=== PATIENT | male | born 1945 | race Caucasian/White ===

== ENCOUNTER 2017-03-25 10:35 | Emergency (ER) | payer MEDICARE ==
[2017-03-25] MEDS ORDERED: Morphine INJ* 4 MG/ML 1 ML SYRINGE IV ONE (11:07)
[2017-03-25] MEDS ORDERED: Ondansetron INJ* 2 MG/ML VIAL IV ONE (11:07)
[2017-03-25] MEDS ORDERED: LORazepam INJ* 2 MG/ML 1 ML VIAL IV PUSH ONE (11:09)
[2017-03-25 11:41] LABS: Hematocrit 41 % (42-52); Hemoglobin 14.1 g/dl (14.0-18.0); Mean Corpuscular HGB Conc 34 g/dl (31-36); Mean Corpuscular Hemoglobin 31 pg (27-31); Mean Corpuscular Volume 91 fL (80-94); Mean Platelet Volume 7 um3 (7.4-10.4); Red Blood Count 4.52 10^6/ul (4.0-5.4); Red Cell Distribution Width 14 % (10.5-15); White Blood Count 7.7 10^3/ul (3.5-10.8)
[2017-03-25] MEDS: NS 0.9% 1000 ML* 2,000 ML IV ONE ×2 (11:46→11:47)
[2017-03-25 11:57] LABS: ALT 13 U/L (7-52); AST 17 U/L (13-39); Alkaline Phosphatase 67 U/L (34-104); Amylase 50 U/L (29-103); Anion Gap 7 mmol/L (2-11); BUN/Creatinine Ratio 9.9 (8-20); Blood Urea Nitrogen 9 mg/dL (6-24); C Reactive Protein < 1.00 mg/L (< 5.00); CO2 Carbon Dioxide 24 mmol/L (22-32); Calcium 9.6 mg/dL (8.6-10.3); Chloride 102 mmol/L (101-111); EGFR Non-African American 81.7 (>60); Globulin 3.3 g/dL (2-4); Glucose 133 mg/dL (70-100); Lipase 32 U/L (11.0-82.0); Potassium 3.6 mmol/L (3.5-5.0); Sodium 133 mmol/L (133-145); Total Protein 7.3 g/dL (6.4-8.9)
[2017-03-25 11:58] LABS: Troponin I 0.01 ng/mL (<0.04)
[2017-03-25] MEDS ORDERED: Iodixanol* (CONTRAST) 320 MG/ML 100 ML SDV IV ONE (12:18)
[2017-03-25 12:36] VITALS: BP 166/70
[2017-03-25 13:33] LABS: Urine Bilirubin Negative (Negative); Urine Glucose Negative (Negative); Urine Nitrite Negative (Negative)
--- NOTE | 2017-03-25 13:36 | RAD ---
CLINICAL HISTORY: Pain, small bowel obstruction, colitis, cholelithiasis COMPARISON: CTA dated July 05, 2010 TECHNIQUE: Multiple contiguous axial CT scans were obtained of the abdomen and pelvis after the administration of intravenous contrast. Coronal and sagittal multiplanar reformations are submitted for review. Oral contrast was administered. Delayed images were obtained through the abdomen and pelvis. FINDINGS: LUNG BASES: The lung bases are clear. LIVER: The liver is normal in shape, size, contour, and attenuation. BILE DUCTS: There is no intrahepatic or extrahepatic biliary dilatation. GALLBLADDER: The gallbladder is normal, without pericholecystic inflammatory change. PANCREAS: The pancreas is normal, without mass or ductal dilatation. SPLEEN: Normal in size and appearance. UPPER GI TRACT: Evaluation of the gastrointestinal tract is limited by incomplete gastric distention. The upper GI tract is unremarkable. SMALL BOWEL AND MESENTERY: The small bowel is normal in contour, course, and caliber. There is no obstruction or dilatation. COLON: The colon is normal in contour, course, caliber. There is no pericolonic inflammatory change. There is a tubular, vermiform, hollow viscus that is blind ending, and originates from the cecum, consistent with a normal appendix. There is no periappendiceal inflammatory change. This is best seen on axial image 47 and coronal images 43 through 46 ADRENALS: Normal bilaterally. KIDNEYS: The kidneys are normal in shape, size, contour, and axis. There is no hydronephrosis or nephrolithiasis. BLADDER: The bladder is smooth in contour. PELVIC ORGANS: The prostate is diffusely enlarged. The seminal vesicles are symmetric. AORTA: There is extensive atherosclerosis of the abdominal aorta and its branches IVC: Unremarkable LYMPH NODES: There is no lymphadenopathy by size criteria. ABDOMINAL WALL: There is no evidence for abdominal wall hernia. BONES AND SOFT TISSUES: There are mild diffuse degenerative changes. OTHER: None IMPRESSION: ATHEROSCLEROSIS. NO ACUTE CT PATHOLOGY OF THE VISUALIZED ABDOMEN OR PELVIS
--- NOTE | 2017-03-25 13:45 | RAD ---
INDICATION: Headaches COMPARISON: None TECHNIQUE: Noncontrast axial source images were acquired from the skull base to the vertex. FINDINGS: Ventricles/sulci: There is mild age-related cortical atrophy with compensatory dilatation of the CSF spaces. Brain parenchyma: There is minor periventricular and subcortical white matter change compatible with chronic ischemia. Intracranial hemorrhage:None. Extra-axial spaces: There are no abnormal extra axial fluid collections or evidence of extra-axial mass. Calvarium: There is no calvarial fracture or other calvarial abnormality. Scalp: There is no evidence of scalp or extracalvarial soft tissue abnormality. Paranasal sinuses/mastoid: There is complete opacification of left maxillary antrum. There is mild, bilateral, ethmoid sinus. Compressive thickening. The remaining paranasal sinuses are clear. Other: None. IMPRESSION: NO ACUTE INTRACRANIAL FINDINGS. SINUSITIS.
--- NOTE | 2017-03-25 16:01 | ED ---
Julian Zaragoza SooYoung, scribed for Jacob Awad MD on 03/25/17 at 1048 . Abdominal Pain/Male - HPI Summary HPI Summary: A 71 y/o M presents to ED with c/o diffuse abd pain onset [employer]. Describes the pain as currently feeling like a "lump." Associated sx: abd swelling, diffuse CRUZ, confusion, nausea, diarrhea resolved, constipation. Last BM was yesterday. Denies CP, SOB, fever, chills, vomiting, photophobia. Spoke to PCP who recommended that he come to ED for evaluation. He hasn't taken his daily meds today. PSHx: CABG, 7 stents. PMHx: GI bleed around 2010. He states known hernia. Denies hx CHF, diverticulitis. - History of Current Complaint Chief Complaint: EDAbdPain Stated Complaint: NAUSEA/SENT BY DR Garcia Obtained From: Patient, Medical Records Onset/Duration: Gradual Onset, Still Present Severity Initially: Moderate Severity Currently: Moderate Pain Intensity: 5 Pain Scale Used: 0-10 Numeric Location: Diffuse Associated Signs And Symptoms: Positive: Constipation, Nausea, Diarrhea, Other - pos: constipation, confusion, CRUZ. Negative: Fever, Chest Pain, Vomiting - Allergies/Home Medications Allergies/Adverse Reactions: Allergies Allergy/AdvReac Type Severity Reaction Status Date / Time Buspirone [From Buspar] Allergy Unknown Verified 02/21/13 08:09 Reaction Details Clonazepam [From Klonopin] Allergy Unknown Verified 02/21/13 08:09 Reaction Details PMH/Surg Hx/FS Hx/Imm Hx Previously Healthy: No Endocrine/Hematology History: Reports: Hx Anticoagulant Therapy - plavix, Hx Diabetes - type 2 Cardiovascular History: Denies: Hx Congestive Heart Failure Respiratory History: Reports: Hx Chronic Obstructive Pulmonary Disease (COPD) Denies: Hx Asthma GI History: Denies: Hx Diverticulosis Neurological History: Denies: Hx Dementia - Surgical History Surgery Procedure, Year, and Place: triple bypass, 7 cardiac stents Infectious Disease History: Denies: Traveled Outside the [place] in Last 30 Days - Family History Known Family History: Positive: Cardiac Disease - mother, father, uncles - Social History Occupation: Disabled Lives: Alone Hx Substance Use: No Substance Use Type: Reports: None Hx Tobacco Use: Yes Review of Systems Negative: Fever, Chills Negative: Photophobia Negative: Chest Pain Negative: Shortness Of Breath Positive: Abdominal Pain - with abd swelling, Diarrhea, Nausea, Other - pos: constipation. Negative: Vomiting Neurological: Other - pos: confusion Positive: Headache All Other Systems Reviewed And Are Negative: Yes Physical Exam - Summary Physical Exam Summary: The patient is well-nourished, in no acute distress and in no acute pain. The skin is warm, diaphoretic.Pt is mildly ill appearing. HEENT: The head is normocephalic and atraumatic. The pupils are equal and reactive. The conjunctivae are clear and without drainage. Nares are patent and without drainage. Mouth reveals moist mucous membranes and the throat is without erythema and exudate. The external ears are intact. Neck is supple with full range of motion and non-tender. No nuchal rigidity. There are no carotid bruits. There is no neck vein distension. Respiratory: Chest is non-tender. Lungs are clear to auscultation and breath sounds are symmetrical and equal. Cardiovascular: Heart is regular rate and rhythm. There is no murmur or rub auscultated. There is no peripheral edema and pulses are symmetrical and equal. Abdomen: Distended abd. RUQ, LUQ, LLQ tenderness. Diminished bowel sounds. No palpable hernia or masses. There is no organomegaly palpated. Musculoskeletal: There is no back pain noted. Extremities are non-tender with full range of motion. Cap refill is 3 sceonds. There is no peripheral edema or calf tenderness elicited. Neurological: Patient is alert and oriented to person, place and time. The patient has symmetrical motor strength in all four extremities. Cranial nerves are grossly intact. Deep tendon reflexes are symmetrical and equal in all four extremities. Psychiatric: The patient has an appropriate affect. Mildly anxious. Triage Information Reviewed: Yes Vital Signs On Initial Exam: Initial Vitals Temp Pulse Resp BP Pulse Ox 96 F 67 20 137/75 99 03/25/17 10:36 03/25/17 10:36 03/25/17 10:36 03/25/17 10:36 03/25/17 10:36 Vital Signs Reviewed: Yes Diagnostics - Vital Signs Vital Signs Temp Pulse Resp BP Pulse Ox 03/25/17 10:36 96 F 67 20 137/75 99 - Laboratory Lab Results: Lab Results 03/25/17 03/25/17 03/25/17 Range/Units 11:30 11:30 11:30 WBC 7.7 (3.5-10.8) 10^3/ul RBC 4.52 (4.0-5.4) 10^6/ul Hgb 14.1 (14.0-18.0) g/dl Hct 41 L (42-52) % MCV 91 (80-94) fL MCH 31 (27-31) pg MCHC 34 (31-36) g/dl RDW 14 (10.5-15) % Plt Count 179 (150-450) 10^3/ul MPV 7 L (7.4-10.4) um3 Neut % (Auto) 55.8 (38-83) % Lymph % (Auto) 34.0 (25-47) % [place] % (Auto) 6.7 (1-9) % Eos % (Auto) 3.0 (0-6) % Baso % (Auto) 0.5 (0-2) % Absolute Neuts (auto) 4.3 (1.5-7.7) 10^3/ul Absolute Lymphs (auto) 2.6 (1.0-4.8) 10^3/ul Absolute Monos (auto) 0.5 (0-0.8) 10^3/ul Absolute Eos (auto) 0.2 (0-0.6) 10^3/ul Absolute Basos (auto) 0 (0-0.2) 10^3/ul Absolute Nucleated RBC 0 10^3/ul Nucleated RBC % 0 Sodium 133 (133-145) mmol/L Potassium 3.6 (3.5-5.0) mmol/L Chloride 102 (101-111) mmol/L Carbon Dioxide 24 (22-32) mmol/L Anion Gap 7 (2-11) mmol/L BUN 9 (6-24) mg/dL Creatinine 0.91 (0.67-1.17) mg/dL Est GFR ( Amer) 105.0 (>60) Est GFR (Non-Af Amer) 81.7 (>60) BUN/Creatinine Ratio 9.9 (8-20) Glucose 133 H (70-100) mg/dL Lactic Acid 1.4 (0.5-2.0) mmol/L Calcium 9.6 (8.6-10.3) mg/dL Total Bilirubin 0.90 (0.2-1.0) mg/dL AST 17 (13-39) U/L ALT 13 (7-52) U/L Alkaline Phosphatase 67 (34-104) U/L Troponin I 0.01 (<0.04) ng/mL C-Reactive Protein < 1.00 (< 5.00) mg/L Total Protein 7.3 (6.4-8.9) g/dL Albumin 4.0 (3.2-5.2) g/dL Globulin 3.3 (2-4) g/dL Albumin/Globulin Ratio 1.2 (1-3) Amylase 50 (29-103) U/L Lipase 32 (11.0-82.0) U/L Urine Color Urine Appearance Urine pH (5-9) Ur Specific [place] (1.010-1.030) Urine Protein (Negative) Urine Ketones (Negative) Urine Blood (Negative) Urine Nitrate (Negative) Urine Bilirubin (Negative) Urine Urobilinogen (Negative) Ur Leukocyte Esterase (Negative) Urine Glucose (Negative) 03/25/17 Range/Units 13:08 WBC (3.5-10.8) 10^3/ul RBC (4.0-5.4) 10^6/ul Hgb (14.0-18.0) g/dl Hct (42-52) % MCV (80-94) fL MCH (27-31) pg MCHC (31-36) g/dl RDW (10.5-15) % Plt Count (150-450) 10^3/ul MPV (7.4-10.4) um3 Neut % (Auto) (38-83) % Lymph % (Auto) (25-47) % [place] % (Auto) (1-9) % Eos % (Auto) (0-6) % Baso % (Auto) (0-2) % Absolute Neuts (auto) (1.5-7.7) 10^3/ul Absolute Lymphs (auto) (1.0-4.8) 10^3/ul Absolute Monos (auto) (0-0.8) 10^3/ul Absolute Eos (auto) (0-0.6) 10^3/ul Absolute Basos (auto) (0-0.2) 10^3/ul Absolute Nucleated RBC 10^3/ul Nucleated RBC % Sodium (133-145) mmol/L Potassium (3.5-5.0) mmol/L Chloride (101-111) mmol/L Carbon Dioxide (22-32) mmol/L Anion Gap (2-11) mmol/L BUN (6-24) mg/dL Creatinine (0.67-1.17) mg/dL Est GFR ( Amer) (>60) Est GFR (Non-Af Amer) (>60) BUN/Creatinine Ratio (8-20) Glucose (70-100) mg/dL Lactic Acid (0.5-2.0) mmol/L Calcium (8.6-10.3) mg/dL Total Bilirubin (0.2-1.0) mg/dL AST (13-39) U/L ALT (7-52) U/L Alkaline Phosphatase (34-104) U/L Troponin I (<0.04) ng/mL C-Reactive Protein (< 5.00) mg/L Total Protein (6.4-8.9) g/dL Albumin (3.2-5.2) g/dL Globulin (2-4) g/dL Albumin/Globulin Ratio (1-3) Amylase (29-103) U/L Lipase (11.0-82.0) U/L Urine Color Straw Urine Appearance Clear Urine pH 5.0 (5-9) Ur Specific [place] 1.004 L (1.010-1.030) Urine Protein Negative (Negative) Urine Ketones Negative (Negative) Urine Blood Negative (Negative) Urine Nitrate Negative (Negative) Urine Bilirubin Negative (Negative) Urine Urobilinogen Negative (Negative) Ur Leukocyte Esterase Negative (Negative) Urine Glucose Negative (Negative) Result Diagrams: 03/25/17 11:30 03/25/17 11:30 Lab Statement: Any lab studies that have been ordered have been reviewed, and results considered in the medical decision making process. - CT ABD/PEL CT CT Interpretation: No Acute Changes - IMPRESSION: ATHEROSCLEROSIS. NO ACUTE CT PATHOLOGY OF THE VISUALIZED ABDOMEN OR PELVIS CT Interpretation Completed By: Radiologist BRAIN CT CT Interpretation: No Acute Changes - IMPRESSION: No acute intracranial findings. Sinusitis. CT Interpretation Completed By: Radiologist - EKG 1114 EKG Rhythm: Sinus Bradycardia ST Segment: Normal - no STEMI EKG Interpretation: with poor R-wave progression Re-Evaluation - Re-Evaluation 1 Re-Evaluation Time: 14:17 Change: Unchanged Comment: Discussing results with pt. Pt states still having epigastric pain, but is OK with D/C with some medication. 2 Re-Evaluation Time: 14:25 Change: Unchanged Comment: Discussed plan to dispo, advised pt to increase his Famotidine to two times per day. Abdominal Pain Fem Course/Dx - Course Course Of Treatment: Pt is a 71 y/o M presenting with diffuse abd pain. Associated sx: abd swelling, diffuse CRUZ, confusion, nausea, diarrhea for three days since resolved, constipation. Last BM was yesterday. Denies CP, SOB, fever , chills, vomiting, photophobia. Spoke to PCP who recommended that he come to ED for evaluation. He hasn't taken his daily meds today. PSHx: CABG, 7 stents. PMHx: GI bleed around 2010. Known hernia. Denies hx CHF, diverticulitis. Pt given fluids, ativan, morphine, Zofran in ED. Blood work is without significant abnormalities. UA results are WNL. ABD/PEL CT shows no acute findings. Brain CT shows no acute findings. Will D/C home with Tramadol, Augmentin, and advised pt to increase his Famotidine to two times per day. Pt voiced understanding. - Diagnoses Differential Diagnosis/HQI/PQRI: Appendicitis, Bowel Obstruction, Gall Bladder Disease, Ischemic Bowel, Pancreatitis, Peptic Ulcer Disease, Other - sinus infection, gastritis Provider Diagnoses: Gastritis, Sinusitis Discharge - Discharge Plan Condition: Stable Disposition: HOME Prescriptions: Amoxicillin/Clavulanate TAB* [Augmentin TAB 875*] 875 mg PO BID #20 tab traMADol TAB* [Ultram*] 50 mg PO Q6HR PRN #20 tab MDD 4 PRN Reason: pain Patient Education Materials: Amoxicillin/Clavulanate Potassium (By mouth), Tramadol (By mouth), Gastritis (ED), Sinusitis (ED) Referrals: Jw Dietz MD [Primary Care Provider] - 2 Days Additional Instructions: As we discussed, increase your Famotidine (Pepcid) to two times a day. Follow up with your primary care provider in the next 2 days. Please return to the ED if you experience new or worsening symptoms. The documentation as recorded by the scribeJulian SooYoung accurately reflects the service I personally performed and the decisions made by me, Jacob Awad MD.
== END 2017-03-25 14:55 | disposition home or self-care (01) ==
LOC: ED 10:35
DX: K29.70 Gastritis, unspecified, without bleeding (principal); J32.9 Chronic sinusitis, unspecified; K59.00 Constipation, unspecified; R11.0 Nausea; R19.7 Diarrhea, unspecified; R41.0 Disorientation, unspecified; R51 Headache
CPT/HCPCS: 36415; 70450; 74177; 80053; 81003; 82150; 83605; 83690; 84484; 85025; 86140; 87040; 93005; 96374; 96375; 99283; J2060; J2270; J2405; Q9967

== ENCOUNTER 2017-08-15 09:50 | Emergency (ER) | payer MEDICARE ==
[2017-08-15 10:44] LABS: ABS Basophils 0 10^3/ul (0-0.2); ABS Eosinophils 0.2 10^3/ul (0-0.6); ABS Lymphocytes 2.1 10^3/ul (1.0-4.8); ABS Monocytes 0.8 10^3/ul (0-0.8); ABS Neutrophils 6.7 10^3/ul (1.5-7.7); ABS Nucleated RBC 0 10^3/ul; Eosinophil % 2.3 % (0-6); Hematocrit 39 % (42-52); Hemoglobin 13.8 g/dl (14.0-18.0); Lymphocyte % 21.6 % (25-47); Mean Corpuscular HGB Conc 35 g/dl (31-36); Mean Corpuscular Hemoglobin 32 pg (27-31); Mean Corpuscular Volume 91 fL (80-94); Mean Platelet Volume 6 um3 (7.4-10.4); Nucleated Red Blood Cells % 0.1; Platelet Count 226 10^3/ul (150-450); Red Cell Distribution Width 13 % (10.5-15); White Blood Count 9.8 10^3/ul (3.5-10.8)
--- NOTE | 2017-08-15 11:05 | RAD ---
INDICATION: Cough. COMPARISON: Comparison is made with a prior chest x-ray study from June 20, 2010. TECHNIQUE: Dual-energy PA and lateral views of the chest were obtained. FINDINGS: The patient is status post sternotomy and coronary artery bypass surgery. The heart is upper limits of normal in size and unchanged. The lungs are clear. There is flattening of the diaphragms suggestive of chronic obstructive pulmonary disease. No pleural effusion is seen. IMPRESSION: FINDINGS SUGGESTIVE OF COPD, NO EVIDENCE FOR ACUTE FINDING.
[2017-08-15 11:07] LABS: EGFR Non-African American 94.8 (>60)
--- NOTE | 2017-08-15 12:46 | ED ---
Ancelmo Zaragoza Natalie, scribed for Harjinder Jj MD on 08/15/17 at 1038 . Respiratory - HPI Summary HPI Summary: The pt is a 71 y/o M presenting to the ED c/o productive coughing for two weeks , worsening in the last five days. When coughing, he has LLQ abd pain that radiates to right back. The pain is rated 5/10. It has been difficult for him to cough up sputum, but when he is able to, the sputum was white at first, but is now greenish-yellow. Pt denies fever. He has used an inhaler in the past to relief, but not currently. He has hx HTN and Type 2 diabetes. SHx heavy smoker in past, now its occasional use. - History of Current Complaint Chief Complaint: EDUpperRespComplaint Stated Complaint: CHEST PAIN Hx Obtained From: Patient Onset/Duration: Lasting Days - started two weeks ago, Still Present, Worse Since - five days ago Initial Severity: Moderate Current Severity: Moderate Pain Intensity: 5 Character: Cough (Productive) Sputum Amount: Small Sputum Color: White, Yellow, Green Aggravating Factor(s): Nothing Alleviating Factor(s): Nothing - Allergy/Home Medications Allergies/Adverse Reactions: Allergies Allergy/AdvReac Type Severity Reaction Status Date / Time Buspirone [From Buspar] Allergy Unknown Verified 02/21/13 08:09 Reaction Details Clonazepam [From Klonopin] Allergy Unknown Verified 02/21/13 08:09 Reaction Details PMH/Surg Hx/FS Hx/Imm Hx Previously Healthy: No Endocrine/Hematology History: Reports: Hx Anticoagulant Therapy - plavix, Hx Diabetes - type 2 Cardiovascular History: Denies: Hx Congestive Heart Failure Respiratory History: Reports: Hx Chronic Obstructive Pulmonary Disease (COPD) Denies: Hx Asthma GI History: Denies: Hx Diverticulosis Neurological History: Denies: Hx Dementia - Surgical History Surgery Procedure, Year, and Place: triple bypass, 7 cardiac stents Infectious Disease History: No Infectious Disease History: Denies: Traveled Outside the [place] in Last 30 Days - Family History Known Family History: Positive: Cardiac Disease - mother, father, uncles, Diabetes - Social History Alcohol Use: None Hx Substance Use: No Substance Use Type: Reports: None Hx Tobacco Use: Yes Smoking Status (MU): Current Some Day Smoker Review of Systems Negative: Fever Positive: Cough - productive Positive: Abdominal Pain Positive: Other - back pain All Other Systems Reviewed And Are Negative: Yes Physical Exam - Summary Physical Exam Summary: Appearance: Well-appearing, Well-nourished Skin: Warm Eyes: Normal ENT: Normal Neck: Supple, nontender Respiratory: Very minimal right-sided rales at right base Cardiovascular: Normal, S1 and S2, No murmurs Abdomen: Soft, nontender Bowel: Present Musculoskeletal: Normal, Strength/ROM Intact Neurological: Normal, A&Ox3, Moving extremities spontaneously, Speaking normally in full sentences Psychiatric: Normal Triage Information Reviewed: Yes Vital Signs On Initial Exam: Initial Vitals Temp Pulse Resp BP Pulse Ox 98.2 F 68 18 154/64 99 08/15/17 09:52 08/15/17 09:52 08/15/17 09:52 08/15/17 09:52 08/15/17 09:52 Vital Signs Reviewed: Yes - Britt Coma Scale Coma Scale Total: 15 Diagnostics - Vital Signs Vital Signs Temp Pulse Resp BP Pulse Ox 08/15/17 10:20 20 08/15/17 10:11 62 12 99 08/15/17 09:52 98.2 F 68 18 154/64 99 - Laboratory Lab Results: Lab Results 08/15/17 08/15/17 08/15/17 Range/Units 10:35 10:35 11:29 WBC 9.8 (3.5-10.8) 10^3/ul RBC 4.30 (4.0-5.4) 10^6/ul Hgb 13.8 L (14.0-18.0) g/dl Hct 39 L (42-52) % MCV 91 (80-94) fL MCH 32 H (27-31) pg MCHC 35 (31-36) g/dl RDW 13 (10.5-15) % Plt Count 226 (150-450) 10^3/ul MPV 6 L (7.4-10.4) um3 Neut % (Auto) 67.9 (38-83) % Lymph % (Auto) 21.6 L (25-47) % [place] % (Auto) 7.9 (1-9) % Eos % (Auto) 2.3 (0-6) % Baso % (Auto) 0.3 (0-2) % Absolute Neuts (auto) 6.7 (1.5-7.7) 10^3/ul Absolute Lymphs (auto) 2.1 (1.0-4.8) 10^3/ul Absolute Monos (auto) 0.8 (0-0.8) 10^3/ul Absolute Eos (auto) 0.2 (0-0.6) 10^3/ul Absolute Basos (auto) 0 (0-0.2) 10^3/ul Absolute Nucleated RBC 0 10^3/ul Nucleated RBC % 0.1 Sodium 134 (133-145) mmol/L Potassium 3.8 (3.5-5.0) mmol/L Chloride 103 (101-111) mmol/L Carbon Dioxide 24 (22-32) mmol/L Anion Gap 7 (2-11) mmol/L BUN 9 (6-24) mg/dL Creatinine 0.80 (0.67-1.17) mg/dL Est GFR ( Amer) 121.9 (>60) Est GFR (Non-Af Amer) 94.8 (>60) BUN/Creatinine Ratio 11.3 (8-20) Glucose 139 H (70-100) mg/dL Calcium 9.2 (8.6-10.3) mg/dL Magnesium 2.0 (1.9-2.7) mg/dL Total Bilirubin 0.60 (0.2-1.0) mg/dL AST 13 (13-39) U/L ALT 10 (7-52) U/L Alkaline Phosphatase 86 (34-104) U/L Total Protein 7.2 (6.4-8.9) g/dL Albumin 3.7 (3.2-5.2) g/dL Globulin 3.5 (2-4) g/dL Albumin/Globulin Ratio 1.1 (1-3) Influenza A (Rapid) Negative (Negative) Influenza B (Rapid) Negative (Negative) Result Diagrams: 08/15/17 10:35 08/15/17 10:35 Lab Statement: Any lab studies that have been ordered have been reviewed, and results considered in the medical decision making process. - Radiology CXR Xray Interpretation: No Acute Changes - Findings suggestive of COPD, no evidence for acute finding. ED physician has reviewed this report. Radiology Interpretation Completed By: Radiologist Disposition - Course Assessment/Plan: pt in no acute distress, requests cough medication, instructed to return for any worsening sxs and to fu with pmd. agrees to and understnads dc instructions. - Diagnoses Provider Diagnoses: Bronchitis Discharge - Discharge Plan Condition: Stable Disposition: HOME Prescriptions: Dextromethorphan-Guaifenesin [Guaifenesin/Dextromethorp 10-100 mg/5Ml] 1 teasp PO Q6HR PRN #1 syp PRN Reason: Cough Patient Education Materials: Acute Bronchitis (ED) Referrals: Jw Dietz MD [Primary Care Provider] - Additional Instructions: PLEASE TAKE MEDICATIONS DIRECTED PLEASE RETURN IMMEDIATELY TO THE ER IF YOU HAVE ANY WORSENING OR CONCERNING SYMPTOMS PLEASE MAKE AN APPOINTMENT TO BE SEEN BY YOUR PRIMARY CARE DOCTOR WITHIN 1 WEEK The documentation as recorded by the Ancelmo mendoza Natalie accurately reflects the service I personally performed and the decisions made by me, Harjinder Jj MD.
[2017-08-15 12:56] VITALS: BP 124/66
== END 2017-08-15 12:55 | disposition home or self-care (01) ==
LOC: ED 09:50
DX: J40 Bronchitis, not specified as acute or chronic (principal); R10.32 Left lower quadrant pain; R05 Cough; R10.9 Unspecified abdominal pain; M54.9 Dorsalgia, unspecified; Z72.0 Tobacco use; Z86.79 Personal history of other diseases of the circulatory system; E11.9 Type 2 diabetes mellitus without complications
CPT/HCPCS: 36415; 71046; 80053; 83735; 85025; 87502; 99283

== ENCOUNTER 2019-01-11 14:57 | Inpatient (IN) | payer MEDICARE ==
[2019-01-11] MEDS ORDERED: Ondansetron INJ* 2 MG/ML VIAL IV ONE (16:20)
[2019-01-11] MEDS ORDERED: Morphine 4 MG/ML VIAL (1 ml) 4 MG/ML VIAL IV ONE ×2 (16:20→19:00)
[2019-01-11] MEDS ORDERED: NS 0.9% 1000 ML** 1,000 ML IV ONE (16:20)
--- NOTE | 2019-01-11 16:27 | ED ---
HPI Cardiac - HPI Summary HPI Summary: This pt is a 73 y/o male, with hx of [place], presenting to [facility] referred by Dr. Harris for elevated troponin level today. Pt reports he saw Dr. Harris, his computer graphic designer, today for routine blood work. Patient was called by Dr. Harris after troponin resulted 0.21 and was told to come to the ED. Pt states last evening he felt pain on the right side of his abdomen along with right arm pain. Currently he still reports "uncomfortable" feeling on the right side of his abdomen. He notes this pain is different from his past [place] chest pain. Pt reports his chest pain is usually down in his mid sternum. PMHx: triple bypass in 1993 and 7 stents placed since then. Pt is on anticoagulants, Plavix, and statins. Denies tobacco and alcohol use. - History of Current Complaint Chief Complaint: EDGeneral Stated Complaint: F/U AFTER STAT LAB WORK PER DR HARRIS//PER PT Time Seen by Provider: 01/11/19 15:41 Hx Obtained From: Patient Onset/Duration: Started Hours Ago, Still Present Timing: Lasting Hours Current Severity: Mild Pain Intensity: 1 - right sided abdomen Pain Scale Used: 0-10 Numeric Aggravating Factor(s): Nothing Alleviating Factor(s): Nothing Associated Signs and Symptoms: Positive: Abdominal Pain. Negative: Shortness of Breath, Fever, Chills, Nausea, Vomiting - Allergy/Home Medications Allergies/Adverse Reactions: Allergies Allergy/AdvReac Type Severity Reaction Status Date / Time buspirone [From BuSpar] AdvReac Unknown Verified 01/11/19 15:09 Reaction Details clonazepam [From Klonopin] AdvReac Unknown Verified 01/11/19 15:09 Reaction Details Home Medications: Home Medications Alprazolam XR (NF) [Xanax XR (NF)] 1 mg PO BID 01/11/19 [History Confirmed 01/11] Chlorthalidone TAB* [Hygroton TAB*] 25 mg PO QAM 01/11/19 [History Confirmed 11/26] Ezetimibe TAB* [Zetia TAB*] 10 mg PO DAILY 01/11/19 [History Confirmed 01/11/19] Famotidine TAB* [Pepcid 20 MG TAB*] 20 mg PO BID 01/11/19 [History Confirmed 11/26] Irbesartan (NF) [Avapro (NF)] 75 mg PO DAILY 01/11/19 [History Confirmed ] Levalbuterol 0.63MG/3ML NEB* [Xopenex 0.63MG/3ML NEB*] 0.63 mg INH QID PRN 01/11 [History Confirmed 01/11/19] Metformin ER (NF) 1,000 mg PO BID 01/11/19 [History Confirmed 01/11/19] Nitroglycerin TAB 0.4 MG* 0.4 mg SL Q5M PRN 01/11/19 [History Confirmed 01/11/19 ] Rosuvastatin (NF) [Crestor (NF)] 10 mg PO BEDTIME 01/11/19 [History Confirmed ] Sertraline* [Zoloft*] 100 mg PO BID 01/11/19 [History Confirmed 01/11/19] Umeclidin/Vilant 62.5 MDI(NF) [ANORO 62.5/25 Ellipta DEVICE (NF)] 1 puff INH DAILY 01/11/19 [History Confirmed 01/11/19] PMH/Surg Hx/FS Hx/Imm Hx Endocrine/Hematology History: Reports: Hx Anticoagulant Therapy - plavix, Hx Diabetes - type 2 Cardiovascular History: Reports: Hx Hypertension - WITH MEDS, Hx Myocardial Infarction Denies: Hx Congestive Heart Failure, Hx Pacemaker/ICD Respiratory History: Reports: Hx Chronic Obstructive Pulmonary Disease (COPD) Denies: Hx Asthma GI History: Denies: Hx Diverticulosis History: Denies: Hx Renal Disease Sensory History: Denies: Hx Hearing Aid Neurological History: Denies: Hx Dementia Psychiatric History: Denies: Hx Panic Disorder - Surgical History Surgery Procedure, Year, and Place: TRIPLE BYPASS 1993 CARDIAC STENTS;. Infectious Disease History: No Infectious Disease History: Denies: Traveled Outside the [place] in Last 30 Days - Family History Known Family History: Positive: Cardiac Disease - mother, father, uncles, Diabetes - Social History Alcohol Use: None Hx Substance Use: No Substance Use Type: Reports: None Hx Tobacco Use: Yes Smoking Status (MU): Light Every Day Tobacco Smoker Review of Systems Negative: Fever Negative: Shortness Of Breath Positive: Abdominal Pain - right sided. Negative: Vomiting, Nausea All Other Systems Reviewed And Are Negative: Yes Physical Exam - Summary Physical Exam Summary: GENERAL: Patient is a well-developed and nourished male who is lying comfortable in the stretcher. Patient is not in any acute respiratory distress. HEAD AND FACE: Normocephalic EYES: PERRLA, EOMI x 2. EARS: Hearing grossly intact. MOUTH: Oropharynx within normal limits. NECK: Supple, trachea is midline, no adenopathy, no JVD, no carotid bruit. CHEST: Symmetric, no tenderness at palpation LUNGS: Clear to auscultation bilaterally. No wheezing or crackles. CVS: Regular rate and rhythm, S1 and S2 present, no murmurs or gallops appreciated. ABDOMEN: Soft, tender diffusely, but severely tender in the mid quadrant of the right side. Bowel sounds are normal. No abnormal abdominal pulsations. EXTREMITIES: Full ROM in all major joints, no edema, no cyanosis or clubbing. NEURO: Alert and oriented x 3. No acute neurological deficits. Speech is normal and follows commands. SKIN: Dry and warm Triage Information Reviewed: Yes Vital Signs On Initial Exam: Initial Vitals Temp Pulse Resp BP Pulse Ox 98.9 F 62 15 147/74 100 01/11/19 15:05 01/11/19 15:05 01/11/19 15:05 01/11/19 15:05 01/11/19 15:05 Vital Signs Reviewed: Yes Diagnostics - Vital Signs Vital Signs Temp Pulse Resp BP Pulse Ox 01/11/19 15:05 98.9 F 62 15 147/74 100 - Laboratory Result Diagrams: 01/11/19 16:54 01/11/19 16:54 Lab Statement: Any lab studies that have been ordered have been reviewed, and results considered in the medical decision making process. - Radiology Chest XR Radiology Interpretation Completed By: Radiologist Summary of Radiographic Findings: IMPRESSION: Stigmata of chronic obstructive pulmonary disease without acute pulmonary process. Cardiomegaly without compelling evidence for pulmonary edema. Dr. Carroll has reviewed this report. - CT CT Abdomen/Pelvis CT Interpretation Completed By: Radiologist Summary of CT Findings: IMPRESSION: 1. No acute intra-abdominal findings or significant change since prior study. 2. Distended gallbladder. No calcified gallstones or pericholecystic stranding. 3. Normal appendix. No bowel obstruction. 4. Aorto iliac atherosclerotic disease. 5. Other non-emergent findings detailed above. Dr. Carroll has reviewed this report. - EKG 16:38 Cardiac Rate: NL - at 57 bpm EKG Rhythm: Sinus Rhythm EKG Comparison: No Significant Change - Similar to prior EKG on 03/25/17. Summary of EKG Findings: Prolonged HI. Left anterior fascicular block. 18:47 Cardiac Rate: Bradycardia - at 56 bpm EKG Rhythm: Sinus Bradycardia EKG Comparison: No Significant Change - unchanged from prior EKG Summary of EKG Findings: HI is prolonged. RBBB. Left anterior fascicular block. Re-Evaluation - Re-Evaluation First Eval Re-Evaluation Time: 18:50 Change: Worse Comment: Pt is reporting increased chest pain, rating it 4/10 in severity. Will obtain a second EKG. Second Eval Re-Evaluation Time: 21:20 Comment: Discussed admission plan with pt. He agrees to admission. Disposition - Course Assessment/Plan: Pt is a 73 y/o male, with hx of [place], presenting to [facility] referred by Dr. Harris for elevated troponin level of 0.21 today. Lab results remarkable for glucose of 143, troponin of 0.20. Second troponin is 0.17. Chest XR shows stigmata of chronic obstructive pulmonary disease without acute pulmonary process. Cardiomegaly without compelling evidence for pulmonary edema. CT abdomen/pelvis was obtained. Case discussed with Dr. Hughes, hospitalist, who accepted the pt for admission. I discussed results with patient. The patient agrees with this plan. - Diagnoses Provider Diagnoses: Chest pain, Abdominal pain - Physician Notifications Discussed Care Of Patient With: Mishel Hughes - hospitalist Time Discussed With Above Provider: 21:16 Instructed by Provider To: Admit As Inpatient Discharge - Sign-Out/Discharge Documenting (check all that apply): Patient Departure - Admit to [facility] Patient Received Moderate/Deep Sedation with Procedure: No - Discharge Plan Condition: Stable Disposition: ADMITTED TO [facility] Referrals: Mariangel Rodriguez MD [Primary Care Provider] - - Billing Disposition and Condition Condition: STABLE Disposition: Admitted to [facility] - Attestation Statements Document Initiated by Scribe: Yes Documenting Scribe: Selma Cornelius Provider For Whom Scribe is Documenting (Include Credential): Samy Carroll MD Scribe Attestation: Selma Zaragoza, scribed for Samy Carroll MD on 01/11/19 at 2125. Scribe Documentation Reviewed: Yes Provider Attestation: The documentation as recorded by the scribe, Selma Cornelius accurately reflects the service I personally performed and the decisions made by me, Samy Carroll MD Status of Scribe Document: Viewed
[2019-01-11 17:05] LABS: ABS Basophils 0.1 10^3/ul (0-0.2); ABS Eosinophils 0.3 10^3/ul (0-0.6); ABS Lymphocytes 2.6 10^3/ul (1.0-4.8); ABS Monocytes 0.5 10^3/ul (0-0.8); Eosinophil % 3.6 %; Hematocrit 41 % (42-52); Hemoglobin 14.2 g/dL (14.0-18.0); Lymphocyte % 34.9 %; Mean Corpuscular HGB Conc 35 g/dL (31-36); Mean Corpuscular Hemoglobin 32 pg (27-31); Mean Corpuscular Volume 92 fL (80-94); Mean Platelet Volume 7.1 fL (7.4-10.4); Nucleated Red Blood Cells % 0.1; Platelet Count 154 10^3/uL (150-450); Red Blood Count 4.44 10^6 /uL (4.18-5.48); Red Cell Distribution Width 14 % (10.5-15); White Blood Count 7.5 10^3/uL (3.5-10.8)
[2019-01-11] MEDS ORDERED: Iodixanol* (CONTRAST) 320 MG/ML 100 ML SDV IV ONE (17:05)
[2019-01-11 17:13] LABS: Activated Partial Thrombo Time 33.9 seconds (26.0-38.0); INR 1.08 (0.82-1.09)
[2019-01-11 17:22] LABS: ALT 14 U/L (7-52); AST 18 U/L (13-39); Albumin 3.8 g/dL (3.2-5.2); Albumin/Globulin Ratio 1.2 (1-3); Alkaline Phosphatase 71 U/L (34-104); Anion Gap 7 mmol/L (2-11); BUN/Creatinine Ratio 10.4 (8-20); Blood Urea Nitrogen 11 mg/dL (6-24); CO2 Carbon Dioxide 26 mmol/L (22-32); Calcium 9.2 mg/dL (8.6-10.3); Chloride 107 mmol/L (101-111); EGFR African American 82.4 (>60); EGFR Non-African American 68.1 (>60); Globulin 3.1 g/dL (2-4); Glucose 143 mg/dL (70-100); Potassium 3.7 mmol/L (3.5-5.0); Sodium 140 mmol/L (135-145); Total Protein 6.9 g/dL (6.4-8.9)
[2019-01-11] MEDS ORDERED: Nitroglycerin TAB 0.4 MG* 0.4 MG TAB SL ONE (18:46)
[2019-01-11] MEDS ORDERED: Nitroglycerin TAB 0.4 MG* 0.4 MG TAB ONE (18:48)
[2019-01-11 20:39] LABS: Troponin I 0.17 ng/mL (<0.04)
[2019-01-11] MEDS ORDERED: Nitroglycerin TAB 0.4 MG* 0.4 MG TAB SL PRN (22:23)
[2019-01-11] MEDS ORDERED: Levalbuterol 0.63MG/3ML NEB* UNIT OF USE INH PRN (22:23)
[2019-01-11] MEDS ORDERED: Dextrose 50% Syringe 50 ML* 25 GM/50 ML SYRINGE IV PUSH PRN (22:25)
[2019-01-11] MEDS ORDERED: Enoxaparin(*) 100 MG/ML SYR SUBCUT ONE (22:32)
[2019-01-11] MEDS ORDERED: Morphine INJ* 2 MG/ML 1 ML SYRINGE (TWO MG - NEW SYRINGE VERSION) IV PRN (22:44)
[2019-01-11] MEDS ORDERED: Docusate CAP* 100 MG PO PRN (22:44)
[2019-01-11] MEDS ORDERED: oxyCODONE/Acetamin 5/325 MG* TAB PO PRN (22:44)
[2019-01-11] MEDS ORDERED: Ondansetron INJ* 2 MG/ML VIAL IV PRN (22:44)
[2019-01-11] MEDS ORDERED: Magnesium Hydroxide LIQ* 30 ML UDC PO PRN (22:44)
[2019-01-11] MEDS ORDERED: Senna TAB PO PRN (22:44)
[2019-01-11] MEDS ORDERED: Acetaminophen TAB* 325 MG PO PRN (22:44)
[2019-01-11] MEDS ORDERED: Al Hydrox/Mg Hydrox/Simet LIQ* 30 ML UDC PO PRN (22:44)
[2019-01-11 23:33] LABS: Troponin I 0.16 ng/mL (<0.04)
[2019-01-12] MEDS: Famotidine TAB* 20 MG PO SCH ×4 (01:22→21:39)
[2019-01-12] MEDS: ALPRAZolam TAB* 0.5 MG PO SCH ×4 (01:22→21:39)
[2019-01-12] MEDS: Sertraline* 100 MG TAB PO SCH ×4 (01:22→21:39)
--- NOTE | 2019-01-12 01:56 | HP ---
CC: Dr. Mariangel Rodriguez; Buddy Harris MD * HISTORY AND PHYSICAL: DATE OF ADMISSION: 01/11/19. TIME OF EVALUATION: 2199. PRIMARY CARE PHYSICIAN: Dr. Mariangel Rodriguez. IMPLEMENTATION TECHNICIAN: Buddy Harris MD CHIEF COMPLAINT: Elevated troponin in the setting of right upper quadrant pain. HISTORY OF PRESENT ILLNESS: This is a 73-year-old male with a past medical history of coronary artery disease, status post bypass and PCIs, multiple stents placed, who states for the past 2 nights she has developed right upper quadrant pain shortly after eating dinner. He was able to get in to see his lead nurse today, was seen by Dr. Harris for followup. They were concerned about ischemia and sent him for labs including a troponin, which was noted to be elevated and he was sent to the emergency room for further evaluation. The patient states for the past 2 nights after eating a turkey sandwich and one was after eating sirloin, he has developed right upper quadrant pain and right- sided chest discomfort in the evening. No shortness of breath associated with it. No diaphoresis. No nausea, vomiting. No changes in his bowels. He states it did not feel like his normal heart issues which is usually left-sided chest pain. He has been under a lot of stress with a friend recently passing away and he is feeling very emotionally labile. The patient is still having some right upper quadrant discomfort and other rather diffuse abdominal pain. The patient states he has had ongoing dyspnea on exertion. It has been gradually getting worse. He gets dyspnea after about 15 to 20 minutes of exerting himself. He denies any nausea, vomiting. No diaphoresis. He has had no increase in indigestion. This morning he felt better and then the pain came back. He does not want a chemical stress test. He discussed how painful it is. States his last echo was back in July of 2018. Otherwise, review of systems is negative. In the emergency room, the patient had labs, imaging. He was given a liter of fluids, Zofran 4 mg, nitro sublingual, morphine 8 mg total and referred to the hospitalist service for further evaluation. PAST MEDICAL HISTORY: 1. Ischemic dilated cardiomyopathy, most recent EF of 45%. 2. Osteoarthritis. 3. Morbid obesity. 4. Mixed hyperlipidemia. 5. Peripheral vascular disease. 6. Diabetes. 7. CAD, status post bypass and stents, placed followed by Dr. Harris. 8. BPH without outflow obstruction. 9. History of aneurysm of iliac artery. MEDICATIONS: 1. Ellipta 62.5-25 one inhalation daily. 2. Irbesartan 75 mg p.o. daily. 3. Xopenex 4 times a day as needed. 4. Chlorthalidone 25 mg p.o. daily. 5. Albuterol nebulizer as needed. 6. Metformin 1000 mg p.o. b.i.d. 7. Famotidine 20 mg p.o. daily. 8. Plavix 75 mg daily. 9. Simvastatin 10 mg daily. 10. Atenolol 25 mg daily. 11. Zoloft 100 mg p.o. b.i.d. 12. Nitro sublingual as needed. 13. Zetia 10 mg daily. 14. Amlodipine 10 mg daily. 15. Xanax 1 mg b.i.d. ALLERGIES: BUSPIRONE and CLONAZEPAM. FAMILY HISTORY: Mother from complication of an iliac aneurysm and bypass. His father at age 74 from congestive heart failure. Mother had an iliac aneurysm complication at age 59. Sister had from lupus complications. SOCIAL HISTORY: The patient is . He lives alone. He is independent of his ADLs. He used to be a heavy smoker. He states he still smokes about 4 cigarettes per year. No alcohol use for the past 20 years. No illicit drug use. Healthcare proxy is his sister. Code status full code. REVIEW OF SYSTEMS: A 14-point review of systems as mentioned in the HPI, otherwise negative. PHYSICAL EXAMINATION GENERAL: In no acute distress. Resting comfortably. VITAL SIGNS: Temp 98.9, pulse 57, respiratory rate 18, oxygen saturation is 98 % on room air, blood pressure 143/84. HEENT: Head: Normocephalic. Pupils are equal and reactive and anicteric. Oropharynx: Mucous membranes are moist. NECK: Supple. No lymphadenopathy. RESPIRATORY: Diminished breath sounds. No wheeze, rhonchi or rales. CARDIAC: Bradycardia. Soft systolic murmur heard throughout. ABDOMEN: Positive bowel sounds. Tenderness in the right upper quadrant and less tender diffusely. No rebound or guarding. EXTREMITIES: No clubbing, cyanosis or edema. +1 DPs. NEUROLOGIC: Alert and oriented x3. No gross focal neurologic deficits. DIAGNOSTIC STUDIES/LAB DATA: White count 7.5, hemoglobin 14.2, hematocrit 41, platelets 154. INR is 1.08. Sodium 140, potassium 2.7, chloride 107, bicarb 26 , BUN 11, creatinine 1.06, glucose 143. Troponin 0.20, repeat 0.17. Earlier as an outpatient, his troponin was 0.21. His LDL was 68, HDL 30, triglycerides 219. Radiographic Data: Chest x-ray showed stigmata of COPD without acute pulmonary process. EKG has bradycardia, right bundle-branch block. Abdominal and pelvis CT shows no acute intraabdominal findings, distended gallbladder, no calcified gallstone or pericholecystic stranding. Normal appendix. No bowel obstruction. Aortoiliac atherosclerotic disease. ASSESSMENT AND PLAN: This is a 73-year-old male with past medical history of known coronary artery disease, diabetes, hypertension, hyperlipidemia, presents to the emergency room after having an elevated troponin from the outpatient office in the setting of right upper quadrant pain. 1. Right upper quadrant pain with an elevated troponin. Assessment: Certainly , this could be unstable angina versus an NSTEMI. His troponins are trending down and he still having pain, which is atypical for unstable angina or an NSTEMI. Also suspicious for gallbladder disease such as biliary colic. The patient is declining a nuclear stress test. There was discussion with Dr. Harris that he may be a candidate for cardiac catheterization. Plan: We will admit him to [address] [place] [address]. We will give him a full Lovenox dose now and recommend followup with Cardiology regarding further full anticoagulation treatment versus just continue him on DVT prophylaxis. Consult Cardiology in the morning. Continue him on his Plavix, atenolol, atorvastatin, amlodipine. We will order an ultrasound of his gallbladder to evaluate further. May consider a Surgery consult for a concern for gallbladder disease. We will also get an echocardiogram to assess LV function. We will keep him on a low-fat diabetic diet and keep him NPO after midnight. 2. Chronic medical problems. We will resume his home medications as prescribed with the exception of metformin as he just received contrast. We will place him on a Lispro sliding scale. 3. FEN. As mentioned, NPO after midnight. Low fat, diabetic diet until then. 4. DVT prophylaxis. The patient scores high risk. He is getting a full Lovenox dose now and recommend followup regarding DVT prophylaxis for full anticoagulation with Cardiology. 5. Code status: Full code. PATIENT TIME: Greater than 50 minutes was spent doing the history and physical , more than half the time was direct patient contact. [id number]/CPS #: [id number] MTDD
[2019-01-12] MEDS: NFT: Umeclidin/Vilant 62.5 MDI 62.5/25 mcg 14 INH ELLIPTA DEVICE INH SCH (07:32)
[2019-01-12] MEDS: Insulin LISPRO* 1 UNITS UNIT SUBCUT SCH ×3 (08:21→19:41)
[2019-01-12] MEDS: Ezetimibe TAB* 10 MG PO SCH ×2 (09:15→10:47)
[2019-01-12] MEDS: Chlorthalidone TAB* 50 MG PO SCH ×2 (09:15→11:15)
[2019-01-12] MEDS: Atenolol TAB* 25 MG PO SCH ×2 (09:18→10:18)
[2019-01-12] MEDS: amLODIPine TAB* 5 MG PO SCH ×2 (09:18→10:18)
[2019-01-12] MEDS: Losartan TAB* 25 MG PO SCH ×2 (09:18→10:47)
[2019-01-12] MEDS: Clopidogrel TAB* 75 MG PO SCH ×2 (09:18→10:18)
--- NOTE | 2019-01-12 09:23 | ECHO ---
*[facility]* [place] [address] Fax #: [phone] Patient: Catrachito, Height: 66 in / Lele Marrero 167.6 cm : 1945 Weight: 191.6 lb / Study Date: 01/12/2019 87.1 kg Age: 73 BP: 133 / 60 Gender: M BMI/BSA: 31 kg/m^2 HR: 49 bpm / 1.97 m^2 *[place] Worker: * Debra Pike [facility] *Referring Physician: * Mishel Hughes *Reading Physician: * Allyson Nation MD Indications: Chest Pain, unspecified. History: Coronary artery disease. Ischemic cardiomyopathy. Functional status: LVEF 45%. Risk factors: Current tobacco use. Obese. Hyperlipidemia. Labs, prior tests, procedures, and surgery: Coronary artery bypass grafting. Conclusions Summary: 1. Procedure narrative: Image quality was fair. 2. Left ventricle: There is mild concentric hypertrophy. Systolic function is mildly reduced. The estimated ejection fraction is 40-45%. Inferior-posterior wall hypo and akinesis extendig to the basilar septum. Features are consistent with a pseudonormal left ventricular filling pattern, with concomitant abnormal relaxation and increased filling pressure (grade 2 diastolic dysfunction). 3. Right ventricle: Systolic function is normal. 4. Mitral valve: The annulus is mildly calcified. The leaflets are mildly thickened. 5. Aortic valve: Thickening, consistent with sclerosis. There is mild regurgitation. 6. Tricuspid valve: There is trace to mild regurgitation. 7. Aorta: The ascending aorta internal dimension in the A-P direction, maximal systolic dimension is 3.8 cm. 8. Ascending aorta: The ascending aorta is mildly dilated. 9. Compared with prior echocardiogram of 07/22/18, ejection fraction stable, wall motion abnormalities not significantly changed, right ventricle function previously hupokinetic, AI stable, aorta diameter is stable. Study data: Procedure: Transthoracic echocardiography was performed. Image quality was fair. Complete 2D, spectral Doppler, and color flow Doppler. Location: Bedside. Patient status: Inpatient. Patient room number: 445-2. Rhythm: Bradycardia. Findings Left ventricle: The cavity size is normal. There is mild concentric hypertrophy. Systolic function is mildly reduced. The estimated ejection fraction is 40-45%. Regional wall motion abnormalities: Hypokinesis of the basalinferoseptal myocardium. Hypokinesis of the basalinferior myocardium. Hypokinesis of the basal-midanterior and inferolateral myocardium. Features are consistent with a pseudonormal left ventricular filling pattern, with concomitant abnormal relaxation and increased filling pressure (grade 2 diastolic dysfunction). Right ventricle: The cavity size is mildly dilated. Systolic function is normal. Left atrium: The atrium is mildly to moderately dilated. Right atrium: The atrium is mildly to moderately dilated. Mitral valve: The annulus is mildly calcified. The leaflets are mildly thickened. There is no evidence of stenosis. There is trace regurgitation. Aortic valve: The valve is trileaflet. The leaflets are moderately thickened. Thickening, consistent with sclerosis. There is no evidence of stenosis. There is mild regurgitation. Tricuspid valve: The leaflets are normal thickness. There is no evidence of stenosis. There is trace to mild regurgitation. Pulmonic valve: The leaflets are normal thickness. There is no evidence of stenosis. There is trace regurgitation. Aorta: Aortic root: The aortic root is mildly dilated. Ascending aorta: The ascending aorta is mildly dilated. Aortic arch: The aortic arch is appears normal. Pericardium: A prominent pericardial fat pad is present. There is no significant pericardial effusion. Pulmonary arteries: The main pulmonary artery is normal-sized. Systolic pressure can not be accurately estimated. Systemic veins: Not well visualized. Measurements Left ventricle Value Ref Aortic valve Value Ref HEENA, LAX 5.0 cm 4.2 - 5.8 Cindy diam, ED 2.3 cm ----- ESD, LAX (H) 4.1 cm 2.5 - 4.0 Peak v, S 1.23 m/sec ----- FS, LAX (L) 18 % 25 - 43 VTI, S 28.6 cm ----- PW, ED, LAX (H) 1.2 cm 0.6 - 1.0 Mean grad, S 2.0 mm Hg ----- FS (L) 18 % 25 - 43 Peak grad, S 6.0 mm Hg ----- PW, ED (H) 1.2 cm 0.6 - 1.0 LVOT/AV, VTI ratio 0.8 ----- E', lat cindy, TDI (L) 4.8 cm/sec >=10.0 GRACIE, VTI 2.78 cm^2 --- -- E/e', lat cindy, 24 GRACIE, Vmax 2.62 cm^2 ----- TDI AR peak v 3.97 m/sec ----- E', med cindy, TDI (L) 3.4 cm/sec >=7.0 AR PHT 569 ms --- -- E/e', med cindy, 34 AR peak grad 63 mm Hg ----- TDI E', avg, TDI 4.1 cm/sec Mitral valve Value Ref E/e', avg, TDI (H) 28 <=14 Peak E 1.16 m/sec --- -- Peak A 0.79 m/sec ----- LVOT Value Ref Decel time 222 ms ----- Diam, S 2.10 cm PHT 157 ms ----- Area 3.5 cm^2 Mean grad, D 2.0 mm Hg ----- Peak kenia, S 0.93 m/sec Peak grad, D 6.0 mm Hg ----- VTI, S 23.0 cm Peak E/A ratio 1.5 ----- Mean grad, S 2 mm Hg MVA, PHT 1.4 cm^2 ----- SV 80 ml SV/bsa 41 ml/m^2 Pulmonic valve Value Ref Peak v, S 0.67 m/sec ----- Ventricular septum Value Ref Peak grad, S 2.0 mm Hg ----- IVS, ED (H) 1.2 cm 0.6 - 1.0 Tricuspid valve Value Ref Right ventricle Value Ref TR peak v 1.82 m/sec <=2.8 HEENA, LAX 3.1 cm Peak RV-RA grad, S 13 mm Hg ----- HEENA minor ax, A4C (H) 5.0 cm 1.9 - 3.5 mid Aortic root Value Ref Root diam (H) 4.3 cm <4.1 Left atrium Value Ref AP dim, ES 3.40 cm 3.00 - Ascending aorta Value Ref 4.00 AAo AP diam, S 3.8 cm ----- ML dim, A4C 4.9 cm SI dim, A4C 5.8 cm Aortic arch Value Ref Vol/bsa, ES, 1-p (H) 42 ml/m^2 12 - 37 Arch diam 2.1 cm ----- A4C Vol/bsa, ES, A/L (H) 41 ml/m^2 16 - 34 Decending aorta Value Ref Sandra peak kenia 0.55 m/sec ----- Right atrium Value Ref SI dim, ES (H) 6.0 cm 3.4 - 5.3 ML dim, ES, A4C (H) 5.3 cm 2.6 - 4.4 SI dim, ES, A4C (H) 6.0 cm 3.4 - 5.3 Estimated RAP 8 mm Hg Legend: (L) and (H) katiuska values outside specified reference range. Prepared and electronically signed by Allyson Nation MD 01/12/2019 09:22
[2019-01-12] MEDS: Isosorbide Mononitrate ER TAB* 30 MG PO SCH (13:24)
--- NOTE | 2019-01-12 16:30 | CONS ---
CONSULTATION REPORT: DATE OF CONSULT: 01/12/19 [employer]IMARY [employer]: Dr. Buddy Harris. PRIMARY PHYSICIAN: Dr. Rodriguez. ATTENDING [employer]: Dr. Nation * (DICTATED BY AKILAH JONES NP) REASON FOR CONSULTATION: Troponin elevation with complaints of epigastric pain. HISTORY OF PRESENT ILLNESS: This is a pleasant 73-year-old male patient with notable history of remote bypass in 1993 with FELICIANO to LAD, vein graft to second OM, vein graft to distal left circumflex in addition to subsequent cardiac intervention in 1989; 2000; and most recently in 2009. He also has a notable history of hypertension, diabetes, peripheral arterial disease, 2.1 x 2.3 right iliac aneurysm and 2 x 2 cm left iliac aneurysm. The patient states that he has been in his usual state of health up until Thursday evening, when he started to notice right-sided upper abdominal pain that was sharp in nature, reproducible with palpation, constant and ongoing. The patient states he eventually fell asleep and the episode resolved. On Thursday, he woke up and was asymptomatic. However, Thursday evening around 8:00 p.m., he started to develop right upper quadrant abdominal pain again. The patient states the pain was ongoing, again reproduced with palpation. He eventually went to bed and symptomatology resolved. He was evaluated in our practice on by Dr. Harris and reported epigastric discomfort. The patient apparently has a longstanding history of epigastric discomfort that he always correlated to his irbesartan therapy. Pain was not necessarily postprandial. Dr. Harris checked cardiac enzymes and initial troponin was elevated at 0.20. The patient was directed to [facility] for further evaluation. The patient states while being evaluated he started to develop central epigastric discomfort that was very similar to his prior anginal equivalent. The central epigastric discomfort did improve with administration of nitroglycerin. He denies dizziness, syncope, palpitation, sensation of heart racing, lightheadedness, or shortness of breath. The patient did have imaging done while in the emergency department due to reproducible abdominal pain. Abdominal and pelvis CT on 01/11/19 demonstrated no acute intraabdominal findings or significant change, distended gallbladder, no calcified gallstones or pericholecystic stranding. He then had a gallbladder ultrasound, which revealed a distended gallbladder measuring 4 x 4 x 11.4 cm. There is mild gallbladder wall thickening that measured 3 mm. No pericholecystic fluid. No shadowing gallstones. The patient was admitted to [address] [place] [address] and we were asked to see the patient in consultation. The patient currently rates his epigastric pain at 3/10. Denies other symptomatology. Last echocardiogram was during this hospitalization on 01/11/19. At that time, LVEF was 40% to 45% with known inferoposterior wall hypokinesis and akinesis extending to the basilar septum, 3.8 ascending aortic aneurysm. Last ischemic evaluation according to our medical records was in 2009 due to non -Q-wave KS. Left heart catheterization at [facility] revealed normal left main , [place] LAD, chronically occluded proximally, left circumflex chronically occluded after small first OM, right coronary artery a dominant vessel with diffuse 10% to 15% disease in the proximal vessel with no hemodynamically significant lesions noted. The distal RCA had 20% lesion. The PDA and PL branches had luminal irregularities. FELICIANO to LAD was patent. The vein graft to second OM marginal was patent. The vein graft to distal left circumflex was occluded with thrombus. EF at that time 48%. The patient underwent successful thrombectomy, angioplasty and drug-eluting stent to occluded vein graft to left circumflex. PAST MEDICAL HISTORY: Notable for: 1. GI bleed in March 2009, which resulted in 6 units of packed red blood cells. 2. Ischemic cardiomyopathy. 3. Coronary artery disease. 4. PAD. 5. Diabetes. 6. Hypertension. 7. Sleep apnea. 8. Hyperlipidemia. 9. NSTEMI in May 2010. 10. Iliac artery aneurysm. PAST SURGICAL HISTORY: 1. Bypass in 1993. 2. Thrombectomy, angioplasty, and drug-eluting stent placement to vein graft of the left circumflex, 2009. HOME MEDICATIONS: Includes: 1. Xanax 1 mg p.o. b.i.d. 2. Norvasc 10 mg a day. 3. Zetia 10 mg a day. 4. Zoloft 100 mg p.o. b.i.d. 5. Atenolol 25 mg a day. 6. Rosuvastatin 10 mg a day. 7. Famotidine 20 mg p.o. b.i.d. 8. Plavix 75 mg a day. 9. Metformin 1000 mg p.o. b.i.d. 10. Irbesartan 75 mg a day. 11. Chlorthalidone 25 mg p.o. daily. 12. Xopenex as directed. 13. Anoro as directed. ALLERGIES: Include BUSPIRONE and CLONAZEPAM. FAMILY HISTORY: Noncontributory. SOCIAL HISTORY: The patient is , lives at home alone. He is retired. Denies alcohol abuse or drug use. He is a former tobacco user, quit approximately 10 years ago. REVIEW OF SYSTEMS: All systems have been reviewed and otherwise negative, except as mentioned above in the HPI. PHYSICAL EXAM: Temperature 97.6, respirations 14, pulse 61, oxygenation 94% on room air. General: The patient is alert and oriented, cooperative with exam, appears well nourished, in no apparent distress. HEENT: Head is atraumatic and normocephalic. Oral mucosa is moist. Tongue is midline. Neck: Supple. Trachea midline. No JVD. No carotid bruit. Cardiac: Normal S1 and S2, regular rate and rhythm. No murmur, rub, or gallop noted. Lungs: Auscultated posteriorly. No evidence of adventitious breath sounds. Respirations nonlabored. /GI: Abdomen is tender in the right upper, right middle and left upper quadrants. Normoactive bowel sounds. Extremities: No pedal edema, no clubbing, no cyanosis. Peripheral vascular: 2+ brachial and dorsalis pedis pulses palpated bilaterally and symmetrically. DIAGNOSTIC STUDIES/LAB DATA: Blood work: White count 7.5, hemoglobin 14.2, hematocrit 41, platelets 154. Sodium 140, potassium 3.7, chloride 107, carbon dioxide 26, creatinine 1.06, glucose 141. Troponin #1 of 0.20, troponin #2 of 0.17, troponin #3 of 0.16. Chest x-ray 01/11/19, stigmata of chronic obstructive pulmonary disease without acute pulmonary process per radiology report. EKG 01/12/19 sinus rhythm, rate 84 with 4-beat count of nonsustained VT. Known underlying right bundle-branch block with left anterior fascicular block. ASSESSMENT AND PLAN: 1. Complaints of right upper quadrant and epigastric pain. Symptoms appear typical and atypical. Pain improved with administration of nitroglycerin. The patient states that central epigastric pain is his anginal equivalent. Troponin peaked at presentation 0.20. Apparently, a month ago, he had exertional chest tightness while going up a flight of stairs. He states that he has not had recurrent angina since 2009, although episode yesterday did remind him of his anginal equivalent. Echocardiogram reveals known inferior and posterior wall regional wall motion abnormality. LVEF of 40% to 45%. Last ischemic evaluation was in 2009 as mentioned above due to non-Q-wave KS. The patient had patent FELICIANO to LAD. At that time, patent vein graft to second OM. Vein graft to distal circumflex was occluded due to thrombus. The patient had successful thrombectomy with angioplasty and drug-eluting stent to vein graft of left circumflex. He is on Plavix, atenolol therapy with history of multiple statin intolerances according to Dr. Harris's note from 01/11/19. The patient is apparently supposed to follow up outpatient to discuss a possible PCSK9 inhibitor. I would recommend risk stratification with Lexiscan nuclear stress test on 01/13/19. The patient was initially declining tests; however, he is currently agreeable. We will continue to follow. 2. History of hypertension. We will continue atenolol and irbesartan therapy, goal blood pressure is less than 130/80 given history of diabetes. 3. History of hyperlipidemia with reported multiple statin intolerances. The patient is supposed to follow up with Dr. Harris to discuss potential PCSK9 inhibitor. Recommend goal LDL less than 70. 4. Right upper quadrant pain, deferred to hospitalist. Gallbladder sonogram did reveal distended gallbladder. 5. Disposition. Pending course. Dr. Allyson Nation had personally seen and examined the patient and agrees with the above assessment and plan. Thank you for this kind consultation. Any future questions or concerns, please do not hesitate to contact our service. AKILAH JONES, EVA [id number]/[facility] #: [id number] DAJUAN
--- NOTE | 2019-01-12 18:20 | CONSULT ---
Subjective Date of Service: 01/12/19 - CC: epigastric and RUQ pain. Interval History: See Lizabeth Ackerman's full consult note. I saw and examined the patient personally. THe patient c/o 2 pains, seperate. 1. Epigastric, at times he states similar to angina, but it occurs at rest unlike prior episodes. 2. RUQ pain. Pain free now. Family History: Unchanged from Admission Social History: Unchanged from Admission Past Medical History: Unchanged from Admission Medications Active Medications: Acetaminophen (Tylenol Tab*) 650 mg PO Q4H PRN PRN Reason: FEVER/PAIN Al Hydrox/Mg Hydrox/Simethicone (Maalox Plus*) 30 ml PO Q6H PRN PRN Reason: INDIGESTION Alprazolam (Xanax Tab*) 1 mg PO BID [facility] Last Admin: 01/12/19 10:18 Dose: 1 mg Amlodipine Besylate (Norvasc Tab*) 10 mg PO DAILY [facility] Last Admin: 01/12/19 10:18 Dose: 10 mg Atenolol (Tenormin Tab*) 25 mg PO QAM [facility] Last Admin: 01/12/19 10:18 Dose: 25 mg Atorvastatin Calcium (Lipitor*) 20 mg PO BEDTIME [facility]; Protocol Chlorthalidone (Hygroton Tab*) 25 mg PO QAM [facility] Last Admin: 01/12/19 11:15 Dose: 25 mg Clopidogrel Bisulfate (Plavix Tab*) 75 mg PO DAILY [facility] Last Admin: 01/12/19 10:18 Dose: 75 mg Dextrose (D50w Syringe 50 Ml*) 12.5 gm IV PUSH .FOR FS < 60 - SS PRN PRN Reason: FS < 60 Docusate Sodium (Colace Cap*) 100 mg PO BID PRN PRN Reason: CONSTIPATION Ezetimibe (Zetia Tab*) 10 mg PO BEDTIME [facility] Famotidine (Pepcid Tab*) 20 mg PO BID [facility] Last Admin: 01/12/19 10:18 Dose: 20 mg Insulin Human Lispro (Humalog*) 0 units SUBCUT AC [facility]; Protocol Last Admin: 01/12/19 12:19 Dose: Not Given Isosorbide Mononitrate (Imdur Er Tab*) 30 mg PO DAILY [facility] Last Admin: 01/12/19 13:24 Dose: 30 mg Levalbuterol HCl (Xopenex 0.63mg/3ml Neb*) 0.63 mg INH QID PRN PRN Reason: SHORTNESS OF BREATH Losartan Potassium (Cozaar Tab*) 25 mg PO BEDTIME [facility] Magnesium Hydroxide (Milk Of Magnesia Liq*) 30 ml PO Q4H PRN PRN Reason: CONSTIPATION Morphine Sulfate (Morphine Inj (Syringe))*) 2 mg IV Q4H PRN PRN Reason: PAIN - MILD Nitroglycerin (Nitroglycerin Tab 0.4 Mg*) 0.4 mg SL Q5M PRN PRN Reason: PAIN - CHEST Ondansetron HCl (Zofran Inj*) 4 mg IV Q4H PRN PRN Reason: NAUSEA/VOMITING Oxycodone/Acetaminophen (Percocet 5/325 Tab*) 1 tab PO Q4H PRN PRN Reason: Pain Senna (Senokot Tab*) 1 tab PO BID PRN PRN Reason: CONSTIPATION Sertraline HCl (Zoloft*) 100 mg PO BID [facility] Last Admin: 01/12/19 10:18 Dose: 100 mg Umeclidinium/Vilanterol (Anoro 62.5/25 Ellipta Device (Nf)) 1 inh INH DAILY [facility] Last Admin: 01/12/19 07:32 Dose: Not Given Home Medications: Atenolol TAB* [Tenormin TAB* 25 MG] 25 mg PO QAM 02/21/13 [History Confirmed 11/26] Clopidogrel TAB* [Plavix TAB*] 75 mg PO DAILY 02/21/13 [History Confirmed ] amLODIPine TAB* [Norvasc 5 mg TAB*] 10 mg PO DAILY 02/21/13 [History Confirmed 01/11/19] Alprazolam XR (NF) [Xanax XR (NF)] 1 mg PO BID 01/11/19 [History Confirmed 01/11] Chlorthalidone TAB* [Hygroton TAB*] 25 mg PO QAM 01/11/19 [History Confirmed 11/26] Ezetimibe TAB* [Zetia TAB*] 10 mg PO DAILY 01/11/19 [History Confirmed 01/11/19] Famotidine TAB* [Pepcid 20 MG TAB*] 20 mg PO BID 01/11/19 [History Confirmed 11/26] Irbesartan (NF) [Avapro (NF)] 75 mg PO DAILY 01/11/19 [History Confirmed ] Levalbuterol 0.63MG/3ML NEB* [Xopenex 0.63MG/3ML NEB*] 0.63 mg INH QID PRN 01/11 [History Confirmed 01/11/19] Metformin ER (NF) 1,000 mg PO BID 01/11/19 [History Confirmed 01/11/19] Nitroglycerin TAB 0.4 MG* 0.4 mg SL Q5M PRN 01/11/19 [History Confirmed 01/11/19 ] Rosuvastatin (NF) [Crestor (NF)] 10 mg PO BEDTIME 01/11/19 [History Confirmed ] Sertraline* [Zoloft*] 100 mg PO BID 01/11/19 [History Confirmed 01/11/19] Umeclidin/Vilant 62.5 MDI(NF) [ANORO 62.5/25 Ellipta DEVICE (NF)] 1 puff INH DAILY 01/11/19 [History Confirmed 01/11/19] Review of Systems - Measurements Intake and Output: Intake and Output Last 24 Hours 01/10/19 01/11/19 01/12/19 01/13/19 04:59 04:59 04:59 04:59 Intake Total 1000 0 Output Total 1500 0 Balance -500 0 Weight 191 lb 9.6 oz Intake: IV Fluids 1000 Oral 0 Output: Urine 1500 0 - Review of Systems General Comments: see dictated consult note. Review of Systems Statement: All other review of systems negative, unless stated above. Objective Vital Signs: Temp Pulse Resp BP Pulse Ox 97.6 F 51 16 121/62 93 01/12/19 15:31 01/12/19 15:31 01/12/19 15:31 01/12/19 15:31 01/12/19 15:31 Oxygen Devices in Use Now: None Appearance: centripitally obese, lying flat, chatty, NAD Eyes: PERRLA Ears/Nose/Mouth/Throat: Clear Oropharnyx Neck: NL Appearance and Movements; NL JVP Respiratory: Symmetrical Chest Expansion and Respiratory Effort, Clear to Auscultation Cardiovascular: NL Sounds; No Murmurs; No JVD, RRR Abdominal: NL Sounds; No Tenderness; No Distention Skin: No Rash or Ulcers Neurological: Alert and Oriented x 3, NL Muscle Strength and Tone Lines/Tubes/Other Access: Clean, Dry and Intact Peripheral IV Laboratory Results: 01/11/19 16:54 01/11/19 16:54 INR (Anticoag Therapy) 1.08 (0.82-1.09) 01/11/19 16:54 APTT 33.9 seconds (26.0-38.0) 01/11/19 16:54 Total Bilirubin 0.90 mg/dL (0.2-1.0) 01/11/19 16:54 AST 18 U/L (13-39) 01/11/19 16:54 ALT 14 U/L (7-52) 01/11/19 16:54 Alkaline Phosphatase 71 U/L (34-104) 01/11/19 16:54 B-Natriuretic Peptide 116 pg/mL (<=100) H 01/11/19 16:54 Total Protein 6.9 g/dL (6.4-8.9) 01/11/19 16:54 Albumin 3.8 g/dL (3.2-5.2) 01/11/19 16:54 Globulin 3.1 g/dL (2-4) 01/11/19 16:54 Albumin/Globulin Ratio 1.2 (1-3) 01/11/19 16:54 01/11/19 01/11/19 01/11/19 16:54 19:53 23:03 Troponin I 0.20 H* 0.17 H* 0.16 H* Assessment/Plan 73 yo male with known CAD, RUQ and epigastric pain and elevated troponins. The patient was initially reluctant to any ischemic work up, but now agreeable to lexisan myoview, he is concerned as it led to significant diffuse pain in the past. He is understanding that elevated troponins are a marker for future events, higher risk. No clear evidence of GB process based on current imaging. Surgery consulting. Additional cardiac recommendations following the results of the patient's stress test. Lizabeth Ackerman's note reviewed, I agree with her recommendations.
--- NOTE | 2019-01-12 18:24 | PN ---
Subjective Date of Service: 01/12/19 Interval History: Pt c/o RUQ, R chest pain that radiates to R arm, which began Thursday. He has h/ o 8 PR s/p CABG, 7 stents. He describes pain as dull ache. It is not associated with eating. He does note Tylenol helped relieve the pain. He continues to still have CP, but it is improved, although he notes it worsens with movement. He denies diaphoresis, SOB. Objective Active Medications: Acetaminophen (Tylenol Tab*) 650 mg PO Q4H PRN Al Hydrox/Mg Hydrox/Simethicone (Maalox Plus*) 30 ml PO Q6H PRN Alprazolam (Xanax Tab*) 1 mg PO BID [facility] Amlodipine Besylate (Norvasc Tab*) 10 mg PO DAILY [facility] Atenolol (Tenormin Tab*) 25 mg PO QAM [facility] Atorvastatin Calcium (Lipitor*) 20 mg PO BEDTIME [facility]; Protocol Chlorthalidone (Hygroton Tab*) 25 mg PO QAM [facility] Clopidogrel Bisulfate (Plavix Tab*) 75 mg PO DAILY [facility] Dextrose (D50w Syringe 50 Ml*) 12.5 gm IV PUSH .FOR FS < 60 - SS PRN Docusate Sodium (Colace Cap*) 100 mg PO BID PRN Ezetimibe (Zetia Tab*) 10 mg PO BEDTIME [facility] Famotidine (Pepcid Tab*) 20 mg PO BID [facility] Insulin Human Lispro (Humalog*) 0 units SUBCUT AC [facility]; Protocol Isosorbide Mononitrate (Imdur Er Tab*) 30 mg PO DAILY [facility] Levalbuterol HCl (Xopenex 0.63mg/3ml Neb*) 0.63 mg INH QID PRN Losartan Potassium (Cozaar Tab*) 25 mg PO BEDTIME [facility] Magnesium Hydroxide (Milk Of Magnesia Liq*) 30 ml PO Q4H PRN Morphine Sulfate (Morphine Inj (Syringe))*) 2 mg IV Q4H PRN Nitroglycerin (Nitroglycerin Tab 0.4 Mg*) 0.4 mg SL Q5M PRN Ondansetron HCl (Zofran Inj*) 4 mg IV Q4H PRN Oxycodone/Acetaminophen (Percocet 5/325 Tab*) 1 tab PO Q4H PRN Senna (Senokot Tab*) 1 tab PO BID PRN Sertraline HCl (Zoloft*) 100 mg PO BID [facility] Umeclidinium/Vilanterol (Anoro 62.5/25 Ellipta Device (Nf)) 1 inh INH DAILY [facility] Vital Signs: Temp Pulse Resp BP Pulse Ox 97.6 F 51 16 121/62 93 01/12/19 15:31 01/12/19 15:31 01/12/19 15:31 01/12/19 15:31 01/12/19 15:31 Oxygen Devices in Use Now: None Appearance: Pt is sitting up in bed. He appears well and in no acute distress. Eyes: No Scleral Icterus, PERRLA Ears/Nose/Mouth/Throat: NL Teeth, Lips, Gums, Mucous Membranes Moist Neck: NL Appearance and Movements; NL JVP, Trachea Midline Respiratory: Symmetrical Chest Expansion and Respiratory Effort, Clear to Auscultation Cardiovascular: NL Sounds; No Murmurs; No JVD, RRR, No Edema, - - Nontender to palpation Abdominal: NL Sounds; No Tenderness; No Distention, No Hepatosplenomegaly, - - Negative Wilhelm's sign Extremities: No Edema, No Clubbing, Cyanosis Neurological: Alert and Oriented x 3 Result Diagrams: 01/11/19 16:54 01/11/19 16:54 Assess/Plan/Problems-Billing Assessment: 73yom PMHx ischemic dialated cardiomyopathy, CAD, HLD, PVD, DM, BPH, iliac aneurysm presents with CP, positive troponins. - Patient Problems (1) Chest pain Comment: -CP continues, but has decreased in intensity -Elevated troponin, LVEF 40-45% -Stress test in a.m. (2) RUQ pain Comment: -Negative wilhelm's sign; US shows GB distension with no evidence for stones -Surgery consulted (3) Cardiomyopathy Comment: -Continue amlodipine, atenolol, clorthalidone, losartan (4) CAD (coronary artery disease) Comment: -Stress test in a.m. -Continue home medications (5) Hyperlipidemia Comment: -Continue statin, zetia (6) Diabetes Comment: -Lispro ss (7) DVT prophylaxis Comment: -Continue lovenox (8) Full code status Status and Disposition: Inpatient. Discharge when stable.
--- NOTE | 2019-01-12 19:53 | PN ---
Progress Note - Progress Note Date of Service: 01/12/19 SOAP: Subjective: Patient seen and examined Care discussed with Ace Beckett-see his dictated consult Feels well today with minimal abdominal pain Tolerated three regular meals without worsening of abdominal pain Exam is unremarkable-some very mild tenderness on the right side abdomen on deep palpation-no masses CT/US reviewed-no obvious gallbladder pathology Plan: I don't think discomfort is gallbladder related Cardiac evaluation in progress Will follow but no recommendation for cholecystectomy at this time.
[2019-01-12] MEDS ORDERED: Losartan TAB* 25 MG PO SCH (21:00)
[2019-01-12] MEDS ORDERED: Atorvastatin* 20 MG TAB PO SCH (21:00)
[2019-01-12] MEDS ORDERED: Ezetimibe TAB* 10 MG PO SCH (21:00)
--- NOTE | 2019-01-12 21:34 | CONS ---
CC: Dr. Mariangel Rodriguez; Dr. Buddy Harris * SURGICAL CONSULTATION NOTE: DATE OF CONSULT: 01/12/19 ATTENDING PHYSICIAN: Dr. Ollie Valle. CHIEF COMPLAINT: Right upper quadrant abdominal pain. HISTORY OF PRESENT ILLNESS: This is a 73-year-old male with known coronary artery disease, who states on Thursday he noticed onset of right upper quadrant abdominal pain with associated right upper extremity pain. He was sitting, reading at that time, he had had some chopped sirloin earlier that evening for supper. He describes the pain as steady, and at one point, it seemed to radiate to the epigastric area. He rates the pain as high as 7/10 at its peak, and at present time, he is having little or no discomfort. He was able to get to sleep that night and he had no pain the next morning. However, Thursday, he began to experience some of the same pain and decided to come into the ED. His initial workup included mild elevation of his troponins. He has been evaluated by Cardiology, who recommended a nuclear stress test, which he is agreeable to and which is scheduled for tomorrow, 01/13/19. He states that this pain seems to be different than his prior anginal pain. He has not had any lower GI symptoms, diarrhea or otherwise. He states that his last bowel movement was Thursday evening and was small, formed, and somewhat light in color. He denies any recent changes in the color of his urine. He has not had any other prior episodes of similar pain. He does have a background history of GERD and did have lower GI bleed 8 to 9 years ago while on Plavix and possibly a second antiplatelet agent. He required 7 units of blood. His workup, which included upper and lower endoscopies was apparently unrevealing. I did not ask him today about his most recent colonoscopy. He has not had any prior abdominal surgeries. PAST MEDICAL HISTORY: Significant for coronary artery disease, status post coronary bypass and subsequent stenting of occluded vessels. He is followed by Dr. Harris. He also has a history of peripheral vascular disease, bilateral iliac aneurysms, mixed hyperlipidemia, type 2 diabetes, obesity, osteoarthritis , and BPH. MEDICATIONS: His admission medications are reviewed includin. Ellipta. 2. Irbesartan. 3. Xopenex. 4. Chlorthalidone. 5. Albuterol. 6. Metformin. 7. Famotidine. 8. Plavix. 9. Simvastatin. 10. Atenolol. 11. Zoloft. 12. Nitroglycerin sublingual p.r.n. 13. Zetia. 14. Amlodipine. 15. Xanax. ALLERGIES: Include BUSPIRONE and CLONAZEPAM. FAMILY HISTORY: Otherwise not repeated. See admission history and physical. SOCIAL HISTORY: Otherwise not repeated. See admission history and physical. REVIEW OF SYSTEMS: Otherwise not repeated. See admission history and physical. PHYSICAL EXAM: Height 5 feet 6 inches, weight 191 pounds, BMI 30.9. Most recent vitals include temperature 97.6, blood pressure 121/62, pulse 51, respirations 16, room air saturation 93%. General: Well-nourished, somewhat obese male, in no acute distress, actually sleeping when I came in. Skin: Warm and dry. No suspicious rashes or lesions. HEENT: Unremarkable. Heart: Regular rate and rhythm. No murmur appreciated. Lungs: Clear to auscultation , maybe a few crackles at the right base. Abdomen: Flat, nondistended, soft with variable areas of tenderness including across the lower abdomen, a bit in the left upper quadrant and [id number] tenderness in the right upper quadrant, though negative Wilhelm sign and no palpable masses or organomegaly. No palpable inguinal hernias. Genitalia: Not examined. Rectal: Not done. Extremities: No edema. Neurological: Grossly intact. DIAGNOSTIC STUDIES/LAB DATA: White blood cell count 7500 with a normal differential, hemoglobin 14.2. Chemistries on admission included normal electrolytes, BUN and creatinine, glucose mildly elevated at 143, lactic acid normal at 0.6. Liver function tests are normal. Initial troponin was elevated at 0.2. BNP was mildly elevated at 116. Imaging included a CT scan of the abdomen and pelvis with both oral and IV contrast, which was personally reviewed. This showed a distended gallbladder, but no inflammatory changes around the gallbladder, normal appendix as described. There are stable aortoiliac atherosclerotic disease changes including bilateral iliac aneurysms. Ultrasound from the same date showed no gallstones, gallbladder wall mildly thickened at 3 mm, but no pericholecystic fluid and a normal common bile duct. IMPRESSION: Right upper quadrant pain of undetermined etiology. Differential includes possible calculus cholecystitis, though current picture would suggest that this is [id number] at best. PLAN/RECOMMENDATIONS: He is admitted to the medical service, and at this point , plans are to undergo a nuclear stress test tomorrow, 01/13/19. As he is currently afebrile with a normal white count and minimal symptoms, it seems reasonable to hold off on any antibiotics and to hold off on any additional tensing including possible HIDA scan. His case will be discussed with my attending, Dr. Valle, and we will follow him while he is in the hospital, though at this point he seemed to be improving and gallbladder pathology appears to be unlikely. MARIAM CARROLL [id number]/[facility] #: [id number] MTDJohn
[2019-01-12] MEDS ORDERED: Enoxaparin(*) 40 MG/0.4 ML SYR SUBCUT SCH (22:00)
[2019-01-13 06:24] LABS: ABS Basophils 0.1 10^3/ul (0-0.2); ABS Eosinophils 0.2 10^3/ul (0-0.6); ABS Lymphocytes 2.8 10^3/ul (1.0-4.8); ABS Monocytes 0.6 10^3/ul (0-0.8); ABS Neutrophils 3.9 10^3/ul (1.5-7.7); Eosinophil % 3.3 %; Hematocrit 40 % (42-52); Hemoglobin 14.1 g/dL (14.0-18.0); Lymphocyte % 36.5 %; Mean Corpuscular HGB Conc 35 g/dL (31-36); Mean Corpuscular Hemoglobin 32 pg (27-31); Mean Corpuscular Volume 91 fL (80-94); Mean Platelet Volume 7.1 fL (7.4-10.4); Nucleated Red Blood Cells % 0.1; Platelet Count 143 10^3/uL (150-450); Red Blood Count 4.43 10^6 /uL (4.18-5.48); Red Cell Distribution Width 14 % (10.5-15); White Blood Count 7.7 10^3/uL (3.5-10.8)
[2019-01-13 06:58] LABS: Troponin I 0.16 ng/mL (<0.04)
[2019-01-13 07:00] LABS: Anion Gap 9 mmol/L (2-11); CO2 Carbon Dioxide 26 mmol/L (22-32); Calcium 9.4 mg/dL (8.6-10.3); Chloride 103 mmol/L (101-111); Potassium 3.6 mmol/L (3.5-5.0); Sodium 138 mmol/L (135-145)
[2019-01-13 07:06] LABS: BUN/Creatinine Ratio 13.1 (8-20); Blood Urea Nitrogen 18 mg/dL (6-24); EGFR African American 61.3 (>60); EGFR Non-African American 50.7 (>60); Glucose 100 mg/dL (70-100)
[2019-01-13] MEDS: NFT: Umeclidin/Vilant 62.5 MDI 62.5/25 mcg 14 INH ELLIPTA DEVICE INH SCH (07:42)
[2019-01-13] MEDS: Insulin LISPRO* 1 UNITS UNIT SUBCUT SCH ×3 (08:26→18:08)
[2019-01-13] MEDS: Atenolol TAB* 25 MG PO SCH (11:06)
[2019-01-13] MEDS: Isosorbide Mononitrate ER TAB* 30 MG PO SCH (11:06)
[2019-01-13] MEDS: Sertraline* 100 MG TAB PO SCH (11:07)
[2019-01-13] MEDS: ALPRAZolam TAB* 0.5 MG PO SCH (11:07)
[2019-01-13] MEDS: amLODIPine TAB* 5 MG PO SCH (11:07)
[2019-01-13] MEDS: Famotidine TAB* 20 MG PO SCH (11:07)
[2019-01-13] MEDS: Clopidogrel TAB* 75 MG PO SCH (11:08)
[2019-01-13] MEDS: Chlorthalidone TAB* 50 MG PO SCH (11:19)
[2019-01-13] MEDS ORDERED: Regadenoson* 0.4 MG/5 ML SYRINGE ONE (11:24)
[2019-01-13 15:48] VITALS: BP 146/53
--- NOTE | 2019-01-13 16:40 | PN ---
Subjective Date of Service: 01/13/19 Interval History: Patient feels good and wants to go home I ambulated him around [address] and he did so without any symptoms of abdomen or chest pain He tells me he cannot take aspirin due to a prior GI bleed no arrhythmias overnight Medications Active Medications: Acetaminophen (Tylenol Tab*) 650 mg PO Q4H PRN PRN Reason: FEVER/PAIN Al Hydrox/Mg Hydrox/Simethicone (Maalox Plus*) 30 ml PO Q6H PRN PRN Reason: INDIGESTION Alprazolam (Xanax Tab*) 1 mg PO BID [facility] Last Admin: 01/13/19 11:07 Dose: 1 mg Amlodipine Besylate (Norvasc Tab*) 10 mg PO DAILY [facility] Last Admin: 01/13/19 11:07 Dose: 10 mg Atenolol (Tenormin Tab*) 25 mg PO QAM [facility] Last Admin: 01/13/19 11:06 Dose: 25 mg Atorvastatin Calcium (Lipitor*) 20 mg PO BEDTIME [facility]; Protocol Last Admin: 01/12/19 21:38 Dose: 20 mg Chlorthalidone (Hygroton Tab*) 25 mg PO QAM [facility] Last Admin: 01/13/19 11:19 Dose: 25 mg Clopidogrel Bisulfate (Plavix Tab*) 75 mg PO DAILY [facility] Last Admin: 01/13/19 11:08 Dose: 75 mg Dextrose (D50w Syringe 50 Ml*) 12.5 gm IV PUSH .FOR FS < 60 - SS PRN PRN Reason: FS < 60 Docusate Sodium (Colace Cap*) 100 mg PO BID PRN PRN Reason: CONSTIPATION Ezetimibe (Zetia Tab*) 10 mg PO BEDTIME [facility] Last Admin: 01/12/19 21:38 Dose: 10 mg Enoxaparin Sodium (Lovenox(*)) 40 mg SUBCUT Q24H [facility] Last Admin: 01/12/19 21:39 Dose: 40 mg Famotidine (Pepcid Tab*) 20 mg PO BID [facility] Last Admin: 01/13/19 11:07 Dose: 20 mg Insulin Human Lispro (Humalog*) 0 units SUBCUT AC [facility]; Protocol Last Admin: 01/13/19 12:41 Dose: Not Given Isosorbide Mononitrate (Imdur Er Tab*) 30 mg PO DAILY [facility] Last Admin: 01/13/19 11:06 Dose: 30 mg Levalbuterol HCl (Xopenex 0.63mg/3ml Neb*) 0.63 mg INH QID PRN PRN Reason: SHORTNESS OF BREATH Losartan Potassium (Cozaar Tab*) 25 mg PO BEDTIME [facility] Last Admin: 01/12/19 21:39 Dose: 25 mg Magnesium Hydroxide (Milk Of Magnesia Liq*) 30 ml PO Q4H PRN PRN Reason: CONSTIPATION Morphine Sulfate (Morphine Inj (Syringe))*) 2 mg IV Q4H PRN PRN Reason: PAIN - MILD Nitroglycerin (Nitroglycerin Tab 0.4 Mg*) 0.4 mg SL Q5M PRN PRN Reason: PAIN - CHEST Ondansetron HCl (Zofran Inj*) 4 mg IV Q4H PRN PRN Reason: NAUSEA/VOMITING Oxycodone/Acetaminophen (Percocet 5/325 Tab*) 1 tab PO Q4H PRN PRN Reason: Pain Senna (Senokot Tab*) 1 tab PO BID PRN PRN Reason: CONSTIPATION Sertraline HCl (Zoloft*) 100 mg PO BID [facility] Last Admin: 01/13/19 11:07 Dose: 100 mg Umeclidinium/Vilanterol (Anoro 62.5/25 Ellipta Device (Nf)) 1 inh INH DAILY [facility] Last Admin: 01/13/19 07:42 Dose: Not Given Objective Vital Signs: Temp Pulse Resp BP Pulse Ox 97.3 F 57 18 146/53 99 01/13/19 15:47 01/13/19 15:47 01/13/19 15:47 01/13/19 15:47 01/13/19 15:47 Oxygen Devices in Use Now: None Appearance: nad, pleasant Ears/Nose/Mouth/Throat: Clear Oropharnyx Neck: NL Appearance and Movements; NL JVP Respiratory: Symmetrical Chest Expansion and Respiratory Effort, Clear to Auscultation Cardiovascular: NL Sounds; No Murmurs; No JVD, RRR, - - sternotomy dylan Abdominal: - - soft, obese Skin: No Rash or Ulcers Neurological: Alert and Oriented x 3, NL Muscle Strength and Tone Lines/Tubes/Other Access: Clean, Dry and Intact Peripheral IV Laboratory Results: 01/13/19 06:14 01/13/19 06:14 INR (Anticoag Therapy) 1.08 (0.82-1.09) 01/11/19 16:54 APTT 33.9 seconds (26.0-38.0) 01/11/19 16:54 Total Bilirubin 0.90 mg/dL (0.2-1.0) 01/11/19 16:54 AST 18 U/L (13-39) 01/11/19 16:54 ALT 14 U/L (7-52) 01/11/19 16:54 Alkaline Phosphatase 71 U/L (34-104) 01/11/19 16:54 B-Natriuretic Peptide 116 pg/mL (<=100) H 01/11/19 16:54 Total Protein 6.9 g/dL (6.4-8.9) 01/11/19 16:54 Albumin 3.8 g/dL (3.2-5.2) 01/11/19 16:54 Globulin 3.1 g/dL (2-4) 01/11/19 16:54 Albumin/Globulin Ratio 1.2 (1-3) 01/11/19 16:54 01/11/19 01/11/19 01/11/19 16:54 19:53 23:03 Troponin I 0.20 H* 0.17 H* 0.16 H* 01/13/19 06:14 Troponin I 0.16 H* Diagnostic Imaging: Study Date: 01/12/2019 Conclusions Summary: 1. Procedure narrative: Image quality was fair. 2. Left ventricle: There is mild concentric hypertrophy. Systolic function is mildly reduced. The estimated ejection fraction is 40-45%. Inferior-posterior wall hypo and akinesis extendig to the basilar septum. Features are consistent with a pseudonormal left ventricular filling pattern, with concomitant abnormal relaxation and increased filling pressure (grade 2 diastolic dysfunction). 3. Right ventricle: Systolic function is normal. 4. Mitral valve: The annulus is mildly calcified. The leaflets are mildly thickened. 5. Aortic valve: Thickening, consistent with sclerosis. There is mild regurgitation. 6. Tricuspid valve: There is trace to mild regurgitation. 7. Aorta: The ascending aorta internal dimension in the A-P direction, maximal systolic dimension is 3.8 cm. 8. Ascending aorta: The ascending aorta is mildly dilated. 9. Compared with prior echocardiogram of 07/22/18, ejection fraction stable, wall motion abnormalities not significantly changed, right ventricle function previously hypokinetic, AI stable, aorta diameter is stable. Assessment/Plan I reviewed the stress test with the patient. he has a small sized distal mostly reversible LAD defect that is unchanged from 2008 images. His feliciano graft to an occluded LAD was patent at the time of the 2010 angiogram. This is highly likely related to relative ischemia from a patent FELICIANO graft under lexiscan stress. He has a separate moderate sized inferior/inferolateral wall infarct with mild emily-infarct ischemia. This is much more prominent than the 2008 stress test. he had an inferolateral wall infarct in 2010 in that territory. There is no stress test since then. I do not think based on his enzyme pattern that the grafts to the Lcx and OM were occluded this week although I did tell him it is very possible it happened since the 2010 MT. He does understand this and also understands that he is at elevated risk in general of future cardiovascular events. Would change his atenolol to toprol same dosing, continue added imdur and as long as patient remains asymptomatic can be discharged from a cardiac standpoint. He should follow up with his PCP and/or Preservationist for continued secondary prevention evaluation and treatment.
--- NOTE | 2019-01-14 01:02 | DS ---
CC: Dr. Mariangel Rodriguez; Dr. Buddy Harris * DISCHARGE SUMMARY: DATE OF ADMISSION: 01/11/19 DATE OF DISCHARGE: 01/13/19 PRIMARY CARE PROVIDER: Dr. Mariangel Rodriguez. ASSEMBLY PRESS OPERATOR: Dr. Buddy Harris. ATTENDING PHYSICIAN: Dr. Samina Reyes * (dictated by MARIAM Pineda.) PRIMARY DIAGNOSES: 1. Chest pain. 2. Elevated troponin. 3. Right upper quadrant pain. SECONDARY DIAGNOSES: 1. Ischemic dilated cardiomyopathy, ejection fraction 40% to 45%. 2. Coronary artery disease, status post bypass, stents, followed by Dr. Harris. 3. History of aneurysm of iliac artery. 4. Peripheral vascular disease. 5. Hyperlipidemia. 6. Obesity. 7. Diabetes mellitus. 8. Osteoarthritis. 9. Benign prostatic hypertrophy. STUDIES WHILE IN THE HOSPITAL: Abdomen and pelvis CT on 01/11/19, impression: No acute intra-abdominal findings or significant changes since prior study. Distended gallbladder. Transthoracic echocardiogram on 01/11/19, impression: Left ventricle mild concentric hypertrophy, mildly reduced systolic function, 40% to 45% ejection fraction. Features consistent with pseudonormal left ventricular filling pattern with concomitant, normal relaxation and increased filling pressure, grade 2 diastolic dysfunction, mild aortic regurgitation, [id number] tricuspid regurgitation, mildly dilated ascending aorta. Nuclear medicine stress test on 01/13/19, impression: Decreased ejection fraction with large fixed defect of the lateral wall and of the apex infarct. There is no reversibility to suggest ischemia. Assessment: Intermediate risk. EKG portion, no evidence of ischemia. DISCHARGE MEDICATIONS: Home medications: 1. Alprazolam 1 mg p.o. b.i.d. 2. Amlodipine 10 mg p.o. daily. 3. Chlorthalidone 25 mg p.o. q. a.m. 4. Clopidogrel 75 mg p.o. daily. 5. Ezetimibe 10 mg p.o. daily. 6. Famotidine 20 mg p.o. b.i.d. 7. Irbesartan 75 mg p.o. daily. 8. Levalbuterol 0.63 mg/3 mL inhalation q.i.d. p.r.n. 9. Metformin 1000 mg p.o. b.i.d. 10. Nitroglycerin 0.4 mg sublingual q.5 minutes p.r.n. chest pain. 11. Rosuvastatin 10 mg p.o. at bedtime. 12. Sertraline 100 mg p.o. b.i.d. 13. Anoro Ellipta device 62.5/25 one puff inhalation daily. New home medications: 1. Isosorbide mononitrate ER tab 30 mg p.o. daily. 2. Metoprolol succinate XL 25 mg p.o. daily. Discontinued home medications: 1. Atenolol 25 p.o. daily. HISTORY OF PRESENT ILLNESS/HOSPITAL COURSE: Mr. Winston is a 73-year-old male with a past medical history of coronary artery disease, ischemic dilated cardiomyopathy, mixed systolic and diastolic heart failure, who presented to the ER on 01/11/19 with complaints of right upper quadrant pain for the last 2 nights. He went to his peripatologist that day and was seen by Dr. Harris. For his concern for ischemia, he was sent to the lab including troponin. Troponin was noted to be elevated, so he was sent to he emergency room for further workup. The patient notes that he has eaten turkey sandwich for the last two nights and he had developed right upper quadrant pain and right-sided chest comfort. He denied diaphoresis, shortness of breath, nausea or vomiting. He denies experiences similar to this in the past noting that he has a history of CAD and typically experiences left-sided chest pain. The patient was admitted due to elevated troponins and pain in his chest and right upper quadrant. Cardiology and Surgery were consulted due to the findings of gallbladder distention on CAT scan and ultrasound of the gallbladder. Repeat echo was performed and noted stable ejection fraction. No significant change in wall motion abnormality. Stable AI and stable aortic diameter. Nuclear medicine stress test was ordered, which revealed result as above. Further suggestions were obtained from Cardiology to switch from atenolol to Toprol and to continue Imdur. The patient will follow up with Dr. Harris an outpatient. As previously noted, Surgery was consulted, but they did not recommend cholecystectomy at this time stating that they do not believe discomfort is gallbladder related. Currently, the patient denies right chest and right upper quadrant pain. He denies shortness of breath or diaphoresis. He is able to ambulate around the unit without symptoms obtained. He is eager to be discharged home. He denies pain elsewhere in the abdomen, nausea, vomiting, diarrhea, constipation or pain in the extremities. Mr. Winston is stable for discharge. PHYSICAL EXAMINATION: Vital Signs: Temperature 97.3 oral, heart rate 57, respiratory rate 18, oxygen saturation 99% on room air, blood pressure 146/53. General: Mr. Winston is a well-developed, well-nourished obese older white male who is sitting up in bed with his lower extremities elevated. He is pleasant and cooperative. He appears to be in no acute distress. HEENT: PERRL. Extraocular movements intact. Nonicteric sclerae. Hearing is intact. Oral mucous membranes are moist and without lesions. The pharynx is clear. Cardiovascular: Regular rate and rhythm with S1 and S2 present without murmurs , rubs, clicks or gallops. No JVD. Pulmonary: Bilateral chest expansion within normal limits. No work of breathing. No use of accessory muscles. Lungs are clear to auscultation bilaterally. No wheeze, rhonchi or rub. Clear to auscultation bilaterally. Abdomen: Bowel sounds noted in all quadrants. The abdomen is soft. There is no tenderness to palpation. There is no hepatosplenomegaly. Wilhelm's sign negative. Extremities Skin is warm and smooth bilaterally without clubbing, cyanosis, or edema. Radial and pedal pulses are palpable. Neuro: The patient is awake. He is alert and oriented x3. He is able to move all of his extremities. He has a steady gait without impairment. DISCHARGE PLAN: Mr. Winston will be discharged to home. ACTIVITY: As tolerated. DIET: Heart healthy, ADA. MEDICATIONS: Discontinue atenolol and start Toprol 25 daily. Continue Imdur. EDUCATION: 1. Followup with primary care provider in 4 to 7 days. 2. Followup with Cardiology/Dr. Harris within 1 to 2 weeks. 3. Return to the ER or nearest hospital if he experience any worsening symptoms. shortness of breath, lightheadedness, dizziness, chest discomfort, loss of consciousness, high fevers, chills, night sweats, or any other worrisome signs or symptoms. This is a summarized report of the complex medical history and hospital stay. For further details, please see entire medical record. TIME SPENT: Approximately 35 minutes was spent on this discharge, greater than half that time was spent [id number] with the patient, discussing discharge plans and instructions. MARIAM MORENO [id number]/[facility] #: [id number] MTDJohn
== END 2019-01-13 18:29 | disposition home or self-care (01) | DRG 392 ==
LOC: ED 14:57 → MEDTELE 22:44
PROVIDERS: ADMIT Pediatrics; ATTEND Internal Medicine
PROC: 4A02XM4 Measurement of Cardiac Total Activity, External Approach (ICD-10-PCS; principal; 2019-01-13)
DX: R10.11 Right upper quadrant pain (principal); I45.2 Bifascicular block; I42.0 Dilated cardiomyopathy; I50.42 Chronic combined systolic (congestive) and diastolic (congestive) heart failure; R07.9 Chest pain, unspecified; J44.9 Chronic obstructive pulmonary disease, unspecified; I25.5 Ischemic cardiomyopathy; M19.90 Unspecified osteoarthritis, unspecified site; E78.2 Mixed hyperlipidemia; E11.51 Type 2 diabetes mellitus with diabetic peripheral angiopathy without gangrene; I25.10 Atherosclerotic heart disease of native coronary artery without angina pectoris; I72.3 Aneurysm of iliac artery; N40.0 Benign prostatic hyperplasia without lower urinary tract symptoms; I71.2 Thoracic aortic aneurysm, without rupture; G47.30 Sleep apnea, unspecified; E66.9 Obesity, unspecified; I11.0 Hypertensive heart disease with heart failure; I08.2 Rheumatic disorders of both aortic and tricuspid valves; R74.8 Abnormal levels of other serum enzymes; F17.210 Nicotine dependence, cigarettes, uncomplicated; Z68.30 Body mass index [BMI] 30.0-30.9, adult; Z95.5 Presence of coronary angioplasty implant and graft; Z88.8 Allergy status to other drugs, medicaments and biological substances; I25.2 Old myocardial infarction; Z95.1 Presence of aortocoronary bypass graft; Z82.49 Family history of ischemic heart disease and other diseases of the circulatory system; Z83.3 Family history of diabetes mellitus; Z79.02 Long term (current) use of antithrombotics/antiplatelets; Z79.84 Long term (current) use of oral hypoglycemic drugs
CPT/HCPCS: 36415; 71045; 74177; 76705; 78452; 80048; 80053; 83605; 83880; 84484; 85025; 85610; 85730; 93005; 93017; 93306; 99284; A9270-GY; A9502; J1650; J2270; J2405; J2785; Q9967

== ENCOUNTER → 2019-02-24 12:25 | Emergency (ER) | payer MEDICARE ==
[~2019-02-24 12:25] MED LIST: Aspirin 81 mg CHEW TAB* 81 MG TAB.CHEW PO ONE
--- NOTE | 2019-02-24 12:39 | ED ---
HPI Chest Pain - HPI Summary HPI Summary: This pt is a 73 y/o male presenting to [facility] via EMS for chest pain since 11:00 today. Pt reports he woke up this morning around 07:10 feeling well without chest pain. He notes he had a couple of cups of coffee and was getting his medications ready to take to his doctor's appointment today. Pt then went to the bathroom, had a bowel movement and returned to his bedroom which is around the corner. At around 11:00 he suddenly felt "indigestion" in the upper mid chest, "not where it usually starts" which is on the lower mid chest area in past MIs. His upper mid chest pain radiates up to his jaw and arms noting "they ache pretty good." Denies nausea, vomiting, SOB. Pt took 1 nitro at home with some relief. Currently he reports his chest discomfort is waxing and waning but is better since onset. Now he denies pain in jaw, neck or arms. EMS administered 1 more nitro in the ambulance. Pt wears a nitroglycerin patch. PMHx: triple bypass in 1993, [place] x8, cardiac stents x7, type 2 DM on pills. Pt has had 7 cardiac catheterizations at [facility]. He was last hospitalized about 1.5 months ago for chest pain and states at the time one of his friends . 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 He is a former smoker. Pt denies any allergic reaction to aspirin, which he has taken most of his life. - History of Current Complaint Chief Complaint: EDChestPainROMI Time Seen by Provider: 02/24/19 12:32 Hx Obtained From: Patient Onset/Duration: Started Hours Ago, Still Present Timing: Lasting Hours Initial Severity: Severe Current Severity: Moderate Pain Intensity: 5 Pain Scale Used: 0-10 Numeric Chest Pain Location: Mid Sternal Chest Pain Radiates: Yes Chest Pain Radiates To:: Arm - bilateral, Jaw, Neck Aggravating Factor(s): Nothing Alleviating Factor(s): Nothing Associated Signs and Symptoms: Positive: Chest Pain. Negative: Shortness of Breath, Fever, Chills, Nausea, Vomiting - Additional Pertinent History Primary Care Physician: [email or web address] - Allergy/Home Medications Allergies/Adverse Reactions: Allergies Allergy/AdvReac Type Severity Reaction Status Date / Time buspirone [From BuSpar] AdvReac Unknown Verified 01/11/19 15:09 Reaction Details clonazepam [From Klonopin] AdvReac Unknown Verified 01/11/19 15:09 Reaction Details Home Medications: Home Medications ALPRAZolam TAB* [Xanax TAB*] 0.25 mg PO BID PRN 02/24/19 [History Confirmed ] ALPRAZolam TAB* [Xanax TAB*] 1 mg PO BID PRN 02/24/19 [History Confirmed ] Atenolol TAB* [Tenormin TAB* 25 MG] 12.5 mg PO DAILY 02/24/19 [History Confirmed 02/24/19] Nitroglycerin 0.1 mg/Hr PATCH* [Nitroglycerin 2.5 MG PATCH*] 1 patch TRANSDERM DAILY 02/24/19 [History Confirmed 02/24/19] PMH/Surg Hx/FS Hx/Imm Hx Endocrine/Hematology History: Reports: Hx Anticoagulant Therapy - plavix, Hx Diabetes - type 2 Cardiovascular History: Reports: Hx Angina, Hx Coronary Artery Disease, Hx Hypercholesterolemia, Hx Hypertension - WITH MEDS, Hx Myocardial Infarction Denies: Hx Congestive Heart Failure, Hx Pacemaker/ICD Respiratory History: Reports: Hx Chronic Obstructive Pulmonary Disease (COPD) Denies: Hx Asthma GI History: Denies: Hx Diverticulosis History: Denies: Hx Renal Disease Sensory History: Reports: Hx Contacts or Glasses Denies: Hx Hearing Aid Opthamlomology History: Reports: Hx Contacts or Glasses Neurological History: Denies: Hx Dementia Psychiatric History: Denies: Hx Panic Disorder - Surgical History Surgery Procedure, Year, and Place: TRIPLE BYPASS 1993 CARDIAC STENTS;. Infectious Disease History: No Infectious Disease History: Denies: Traveled Outside the [place] in Last 30 Days - Family History Known Family History: Positive: Cardiac Disease - mother, father, uncles, Diabetes - Social History Alcohol Use: None Hx Substance Use: No Substance Use Type: Reports: None Hx Tobacco Use: Yes Smoking Status (MU): Former Smoker Type: Cigarettes Review of Systems Negative: Fever Positive: Chest Pain Negative: Shortness Of Breath Negative: Vomiting, Nausea All Other Systems Reviewed And Are Negative: Yes Physical Exam - Summary Physical Exam Summary: Appearance: Well-appearing, Well-nourished, lying in bed comfortably Skin: Warm, dry, no obvious rash Eyes: sclera anicteric, no conjunctival pallor ENT: mucous membranes moist, pharynx appears normal Neck: Supple, nontender Respiratory: Clear to auscultation, no signs of respiratory distress Cardiovascular: Normal S1, S2. No murmurs. Normal distal pulses in tibial and radial bilaterally. Abdomen: Soft, nontender, normal active bowel sounds present Musculoskeletal: Normal, Strength/ROM Intact Neurological: A&Ox3, awake and alert, mentation is normal, speech is fluent and appropriate Psychiatric: affect is normal, does not appear anxious or depressed Triage Information Reviewed: Yes Vital Signs On Initial Exam: Initial Vitals Temp Pulse Resp BP Pulse Ox 98.7 F 56 18 136/74 97 02/24/19 12:26 02/24/19 12:26 02/24/19 12:26 02/24/19 12:26 02/24/19 12:26 Vital Signs Reviewed: Yes Diagnostics - Vital Signs Vital Signs Temp Pulse Resp BP Pulse Ox 02/24/19 12:26 98.7 F 56 18 136/74 97 - Laboratory Result Diagrams: 02/24/19 12:40 02/24/19 12:40 Lab Statement: Any lab studies that have been ordered have been reviewed, and results considered in the medical decision making process. - EKG 12:27 Cardiac Rate: Bradycardia - at 56 bpm EKG Rhythm: Sinus Bradycardia Summary of EKG Findings: EKG at 12:27 is a sinus bradycardia at 56 bpm. Chest Pain Course/Dx - Course Assessment/Plan: Pt is a 73 y/o male who presents to the ED via EMS for chest pain since 11:00 today. Pt woke up this morning around 07:10 feeling well. At onset he describes "indigestion" in the upper mid chest, "not where it usually starts" which is on the lower mid chest area in past MIs. His upper mid chest pain radiates up to his jaw and arms noting "they ache pretty good.". Pt's workup is unremarkable with non-ischemic EKG and troponin neg x 2. On review of his record he had a nuclear stress test last month which was negative for reversible ischemia either by imaging or EKG criteria. I feel that given this information he is at low risk of this being ACS and can be safely discharged. - Diagnoses Provider Diagnoses: Chest pain Discharge - Sign-Out/Discharge Documenting (check all that apply): Patient Departure - Discharge home Patient Received Moderate/Deep Sedation with Procedure: No - Discharge Plan Condition: Good Disposition: HOME Patient Education Materials: Chest Pain (ED) Referrals: Buddy Harris MD [Medical Doctor] - As Soon As Possible Additional Instructions: The tests on your heart today did not show any sign of injury to the heart, i.e. no heart attack. I would ask you to contact Dr. aHrris's office for a followup visit next week. He may adjust your medication or recommend other testing depending on how you are doing. - Attestation Statements Document Initiated by Scribe: Yes Documenting Scribe: Selma Cornelius Provider For Whom Scribe is Documenting (Include Credential): Aaron Null MD Scribe Attestation: ISelma, scribed for Aaron Null MD on 02/24/19 at 1838. Status of Scribe Document: Ready
[2019-02-24 12:51] LABS: ABS Eosinophils 0.2 10^3/ul (0-0.6); ABS Lymphocytes 2.4 10^3/ul (1.0-4.8); ABS Monocytes 0.6 10^3/ul (0-0.8); ABS Neutrophils 5.1 10^3/ul (1.5-7.7); Eosinophil % 2.7 %; Hematocrit 42 % (42-52); Hemoglobin 14.7 g/dL (14.0-18.0); Lymphocyte % 28.5 %; Mean Corpuscular HGB Conc 35 g/dL (31-36); Mean Corpuscular Hemoglobin 32 pg (27-31); Mean Corpuscular Volume 91 fL (80-94); Platelet Count 153 10^3/uL (150-450); Red Blood Count 4.61 10^6 /uL (4.18-5.48); Red Cell Distribution Width 14 % (10-15); White Blood Count 8.4 10^3/uL (3.5-10.8)
[2019-02-24 13:04] LABS: INR 1.06 (0.82-1.09)
[2019-02-24 13:17] LABS: ALT 15 U/L (7-52); AST 17 U/L (13-39); Albumin 3.9 g/dL (3.2-5.2); Albumin/Globulin Ratio 1.3 (1-3); Alkaline Phosphatase 73 U/L (34-104); Anion Gap 9 mmol/L (2-11); BUN/Creatinine Ratio 9.4 (8-20); Blood Urea Nitrogen 10 mg/dL (6-24); CO2 Carbon Dioxide 22 mmol/L (22-32); Calcium 9.1 mg/dL (8.6-10.3); Chloride 105 mmol/L (101-111); EGFR African American 82.4 (>60); EGFR Non-African American 68.1 (>60); Globulin 3.1 g/dL (2-4); Glucose 198 mg/dL (70-100); Potassium 3.6 mmol/L (3.5-5.0); Sodium 136 mmol/L (135-145)
[2019-02-24 13:28] LABS: Troponin I 0.04 ng/mL (<0.04)
[2019-02-24 17:22] VITALS: BP 146/99
== END | disposition home or self-care (01) ==
LOC: ED 12:25
DX: R07.9 Chest pain, unspecified (principal); E11.9 Type 2 diabetes mellitus without complications; I25.2 Old myocardial infarction; I10 Essential (primary) hypertension; E78.00 Pure hypercholesterolemia, unspecified; I25.119 Atherosclerotic heart disease of native coronary artery with unspecified angina pectoris; J44.9 Chronic obstructive pulmonary disease, unspecified; Z95.818 Presence of other cardiac implants and grafts; Z87.891 Personal history of nicotine dependence; Z79.84 Long term (current) use of oral hypoglycemic drugs; Z79.899 Other long term (current) drug therapy; Z79.01 Long term (current) use of anticoagulants; Z88.8 Allergy status to other drugs, medicaments and biological substances
CPT/HCPCS: 36415; 80053; 84484; 85025; 85610; 93005; 99284; A9270-GY

== ENCOUNTER 2019-08-12 17:31 | Emergency (ER) | payer MEDICARE ==
--- OUTSIDE RECORDS SUMMARY | 2019-08-12 18:17 | XMS REPORT | Continuity of Care Document ---
:1945 External Reference #:[id number] Author Name Buddy Harris M.D. (transmitted by agent of provider Cydney Cheema) Address [address] [address] Care Team Providers Name Role Phone Naseem Hoffman MD - Gastroenterology Care Team Information Visitor Services Representative Pain Clinic - Pain Care Team Information Visitor Services Representative [phone] Erickson Patrick MD - Rheumatology Care Team Information Visitor Services Representative Buddy Harris MD - Cardiovascular Care Team Information Visitor Services Representative Disease Oswald Stanton MD - Ophthalmology Care Team Information Visitor Services Representative [phone] Rudy Kelly MD - Urology Care Team Information Visitor Services Representative [phone] Latisha Campo DO - Hospitalist Care Team Information Visitor Services Representative Problems Active Problems Provider Date 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.,FACP Onset: 04/06 coronary artery bypass graft Chronic bronchitis Jw Dietz M.D.,FACP Onset: 07/19/2018 Ischemic dilated cardiomyopathy due to Jw Dietz M.D.,FACP Onset: coronary artery disease Note: EF 45% Aneurysm of iliac artery Jw Dietz M.D.,FACP Onset: 04/06/2008 Benign prostatic hypertrophy without Jw Dietz M.D.,FACP Onset: outflow obstruction Benign essential hypertension Jw Dietz M.D.,FACP Onset: 01/16/2009 Coronary arteriosclerosis Jw Dietz M.D.,FACP Onset: 03/15/2009 Type II diabetes mellitus uncontrolled Jw Dietz M.D.,FACP Onset: Peripheral vascular disease Jw Dietz M.D.,FACP Onset: 04/09/2011 Mixed hyperlipidemia Jw Dietz M.D.,FACP Onset: 05/14/2012 Morbid obesity Buddy Harris M.D. Onset: 06/24/2012 Localized, primary osteoarthritis Jw Dietz M.D.,FACP Onset: 2014 Solitary nodule of lung Jw Dietz M.D.,FACP Onset: 08/01/2015 Note: RUL Social History Type Date Description Comments Sex Unknown Tobacco Use Start: Unknown Former Cigarette Quit in 1993 End: Unknown Smoker 1 Pack Daily Smoking Status Reviewed: 07/18/19 Former Cigarette Quit in 1993 Smoker 1 Pack Daily Smokeless Tobacco Previous smokeless tobacco user, quit around 01/2010 ETOH Use 02/01/2018 Denies alcohol use ETOH Use , in recovery for 20 yrs` Recreational Drug Use Denies Drug Use Tobacco Use Start: 08/10/57 Patient is a former Began at 12yo. 10 End: 08/10/11 smoker cigarettes last 20. In 30's 4ppd. Estimate 40-50 P-Y Exercise Type/Frequency Exercises regularly 15-20 minute walk 5 times a week Allergies, Adverse Reactions, Alerts Active Allergies Reaction Severity Comments Date Buspar paradoxical rxn 11/09/2003 Pletal 11/27/2010 Ticlid pruritis 09/16/2011 Klonopin paradoxical 12/16/2011 Omeprazole Stomach cramps/diarrhea 11/24/2012 Nystatin 02/24/2013 Inactive Allergies klonopin paradoxical rxn 11/09/2003 pletal gi upset 05/05/2005 Pentoxyphylline gi upset. 05/05/2005 Medications Active Medications SIG Qnty Indications Ordering Provider Date Onetouch Delica test up to 4 200units E11.9 Latisha Campo, 06/30/2019 Lancets Fine 30G times daily DO 30G Misc E11.65 Glucophage XR 2 by mouth twice a 360tabs Alcides Rothman MD 04/04/2019 500mg day Tablets ER 24HR Chlorthalidone Take 1/2 (One-Half) 14tabs R60.0 Anna Hair, 03/03/2019 25mg Tablet By Mouth Once N.P. Tablets Daily Nitroglycerin apply to chest wall 90units R07.89 Buddy FBrandan 01/11/2019 0.1mg/HR each am and off each Katie Harris Patches 24HR pm. Onetouch Verio Flex use to check glucose 1units Mariangel Rodriguze MD 2018 Bloodglucose 2xday Dx E11.9 Monitoring System w/Device Kit Shingrix 2 doses 6 month 2units Z23 Soraida Umanak, 04/21/2018 50mcg Suspension apart [employer]AD PROGRAMMER Rec Irbesartan 1 by mouth every day 90tabs R05 Sonya 02/22/2018 75mg Tablets Katie Sheffield Nebulizer 1 unit nebulization 1units Jw Leon 02/01/2018 Kit/Tubing/Mouthpiece every 4- 6 hours as Katie Dietz,FACP needed Kit Walker 4 wheeled walker, 1units Nicole 11/23/2017 [facility] seat and brakes EVA Rodriguez Famotidine take 1 tab by mouth 180tabs K21.9 Mariangel Rodriguez MD 03/18/2017 20mg Tablets twice a day Clopidogrel Bisulfate take 1 tablet by 90tabs Alcides Rothman MD 11/21/2016 mouth once daily 75mg Tablets Accu-Check test 4 times daily 200units E11.40 Jw Leon 09/12/2016 Compactstrips 10/16/17 Katie Dietz,FACP Strips Accu-Check Glucose check 3 times a day 1units E11.40 Jw Leon 2015 Monitor & as needed 10/16/17 Katie Dietz,FACP Device Rosuvastatin Calcium 1 tablet by mouth at 30tabs Buddy Marsh 03/26/2016 10mg bedtime Katie Harris Tablets Atenolol 1/2 tablet by mouth 90tabs Alcides Rothman MD 12/20/2015 25mg Tablets daily. Zoloft 1 po every morning, Other Ordering 06/24/2013 100mg Tablets 1 tablet at night. Provider Nitrostat dissolve 1 tablet 25tabs Buddy Marsh 12/06/2012 0.4mg Tablets under tongue every 5 Katie Harris Sub minutes up to 3 tablets when needed for chest pain Zetia take one tablet by 90tabs E78.5 Alcides Rothman MD 11/14/2011 10mg Tablets mouth once daily Amlodipine Besylate take one tablet by 90tabs I25.10 Mariangel Rodriguez MD 10/28 10mg mouth once daily Tablets Alprazolam ER 1/2 tab by mouth Jw Leon 04/06/2008 2mg Tablets twice daily Katie Dietz,FACP ER 24HR Alprazolam 1/2 tablet by mouth Unknown 0.5mg Tablets every afternoon Immunizations CPT Code Status Date Vaccine Lot # [id number] Given 04/08/2018 Fluzone High Dose 00925 Given 05/22/2016 Influ Virus Vaccine, Quadrivalent, Split Virus, [id number] [address] Given 04/25/2015 Influenza Virus Vaccine, Quadrivalent, Split, [id number] Preservative Free 12739 Given 08/24/2014 Pneumococcal Conjugate Vaccine 13 Valent For [id number] Intramuscular Use 23107 Given 06/06/2014 Flu Vaccine Split Virus Preservative Free For Indiv 3Yr Older 03432 Given 05/04/2013 Fluzone High Dose [id number] Given 05/07/2012 Fluzone Vaccine 19592 Given 10/29/2011 Pneumonia Vaccine [id number] 14520 Given 05/19/2011 Influenza Virus 3Yrs & Over 97578 Given 05/19/2010 Influenza Virus 3Yrs & Over 04117 Given 08/22/2009 Influenza Virus Vaccine, Pandemic Formulation [id number] 54082 Given 06/22/2007 Influenza Virus 3Yrs & Over 85787 Given 06/22/2007 Influenza Virus 3Yrs & Over 25488 Given 06/22/2007 Influenza Virus 3Yrs & Over [id number] 02965 Given 07/07/2006 Pneumonia Vaccine Vital Signs Date Vital Result Comment 07/18/2019 3:31pm Height 66 inches 5'6" Weight 193.00 lb with shoes Heart Rate 54 /min right radial BP Systolic Sitting 140 mmHg ule reg cuff BP Diastolic Sitting 70 mmHg ule reg cuff BP Systolic Lying Down 126 mmHg la repeat sitting BP Diastolic Lying Down 54 mmHg la repeat sitting BMI (Body Mass Index) 31.1 kg/m2 Ejection Fraction 45% Echo 01/12/19 04/20/2019 10:48am Height 66 inches 5'6" Weight 192.12 lb with shoes Heart Rate 60 /min radial, regular BP Systolic Sitting 138 mmHg Ra, reg cuff BP Diastolic Sitting 60 mmHg Ra, reg cuff BP Systolic Standing 130 mmHg LA sitting, reg cuff BP Diastolic Standing 62 mmHg LA sitting, reg cuff BP Systolic Lying Down 130 mmHg LA standing, reg cuff BP Diastolic Lying Down 64 mmHg LA standing, reg cuff BMI (Body Mass Index) 31.0 kg/m2 Ejection Fraction 40%-45% echo 01/12/19 Results Test Acquired Date Facility Test Result H/L Range Note Laboratory test 02/24/2019 [facility] Troponin-I 0.03 ng/mL < 0.04 1 finding [address] [facility] (TnI) [place], [place] [id number] [phone] Inr/Protime 02/24/2019 [facility] Inr 1.06 Normal 0.82-1.09 2 [place] [address] [phone] CBC Auto Diff 02/24/2019 [facility] White 8.4 10^3/uL Normal 3.5-10.8 [facility] [place] [address] Count [phone] Red Blood Count 4.61 10^6/uL Normal 4.18-5.48 Hemoglobin 14.7 g/dL Normal 14.0-18.0 Hematocrit 42 % Normal 42-52 Mean Corpuscular Volume 91 fL Normal 80-94 Mean Corpuscular Hemoglobin 32 pg High 27-31 Mean Corpuscular HGB Conc 35 g/dL Normal 31-36 Red Cell Distribution Width 14 % Normal 10-15 Platelet Count 153 10^3/uL Normal 150-450 Mean Platelet Volume 7.0 fL Low 7.4-10.4 Abs Neutrophils 5.1 10^3/uL Normal 1.5-7.7 Abs Lymphocytes 2.4 10^3/uL Normal 1.0-4.8 Abs Monocytes 0.6 10^3/uL Normal 0-0.8 Abs Eosinophils 0.2 10^3/uL Normal 0-0.6 Abs Basophils 0.0 10^3/uL Normal 0-0.2 Abs Nucleated RBC 0.0 10^3/uL Granulocyte % 61.3 % Lymphocyte % 28.5 % Monocyte % 7.3 % Eosinophil % 2.7 % Basophil % 0.2 % Nucleated Red Blood Cells % 0.0 Comp Metabolic 02/24/2019 [facility] Sodium 136 mmol/L Normal 135-[address] [place] [address] [phone] Potassium 3.6 mmol/L Normal 3.5-5.0 Chloride 105 mmol/L Normal 101-111 Co2 Carbon Dioxide 22 mmol/L Normal 22-32 Anion Gap 9 mmol/L Normal 2-11 Glucose 198 mg/dL High 70-100 Blood Urea Nitrogen 10 mg/dL Normal 6-24 Creatinine 1.06 mg/dL Normal 0.67-1.17 BUN/Creatinine Ratio 9.4 Normal 8-20 Calcium 9.1 mg/dL Normal 8.6-10.3 Total Protein 7.0 g/dL Normal 6.4-8.9 Albumin 3.9 g/dL Normal 3.2-5.2 Globulin 3.1 g/dL Normal 2-4 Albumin/Globulin Ratio 1.3 Normal 1-3 Total Bilirubin 0.90 mg/dL Normal 0.2-1.0 Alkaline Phosphatase 73 U/L Normal 34-104 Alt 15 U/L Normal 7-52 Ast 17 U/L Normal 13-39 Egfr Non- 68.1 >60 Egfr 82.4 >60 3 Laboratory 02/24/2019 [facility] Troponin-I 0.04 Critical < 0.04 [address] (TnI) ng/[place] [address] [phone] 1 Troponin-I testing on Plasma Separator Tubes (PST) has a known false positive rate of 0.20-0.40%. All positive troponins reflex immediately to secondary confirmatory testing. Using the QuiblyI 800 Access Immunoassay systems, the 99th percentile upper reference limit was demonstrated to be < 0.03 ng/mL. 2 Standard intensity warfarin therapeutic range: 2.0-3.0 High intensity warfarin therapeutic range: 2.5-3.5 3 Because ethnic data is not always readily available, this report includes an eGFR for both -Americans and non- Americans. The National Kidney Disease Education Program (NKDEP) does not endorse the use of the MDRD equation for patients that are not between the ages of 18 and 70, are , have extremes of body size, muscle mass, or nutritional status, or are non- or non-. According to the National Kidney Foundation, irrespective of diagnosis, the stage of the disease is based on the level of kidney function: Stage Description GFR(mL/min/1.73 m(2)) 1 Kidney damage with normal or decreased GFR 90 2 Kidney damage with mild decrease in GFR 60-89 3 Moderate decrease in GFR 30-59 4 Severe decrease in GFR 15-29 5 Kidney failure <15 (or dialysis) 4 Result TnIDx:0.04 Called to [id number] at: 13:27:23 by:[id number] Read back by: BARBARA Troponin-I testing on Plasma Separator Tubes (PST) has a known false positive rate of 0.20-0.40%. All positive troponins reflex immediately to secondary confirmatory testing. Using the [employer] DxI 800 Access Immunoassay systems, the 99th percentile upper reference limit was demonstrated to be < 0.03 ng/mL. Procedures Date Code Description Status 07/18/2019 [id number] EKG Tracing & Interpretation Completed 04/14/2019 [id number] Diabetic Retinal Eye Exam Completed 07/20/2017 [id number] Diabetic Retinal Eye Exam Completed 07/16/2017 [id number] Diabetic Retinal Eye Exam Completed 08/28/2014 [id number] Diabetic Retinal Eye Exam Completed 07/20/2013 [id number] Diabetic Retinal Eye Exam Completed 07/12/2013 [id number] Diabetic Retinal Eye Exam Completed 06/29/2013 [id number] Diabetic Retinal Eye Exam Completed 03/09/2009 [id number] Colonoscopy Completed Medical Devices Description No Information Available Encounters Type Date Location Provider Dx Diagnosis Office Visit 04/20/2019 [facility] Anna Hair, I10 Essential ( primary) 11:00a N.P. hypertension I42.9 Cardiomyopathy, unspecified I25.10 Athscl heart disease of [place] coronary artery w/o ang pctrs I25.2 Old myocardial infarction Z95.5 Presence of coronary angioplasty implant and graft Office Visit 03/31/2019 3:00p [facility] Internal Latisha E11.9 Type 2 diabetes Medicine - [place], DO mellitus without [address] complications I10 Essential (primary) hypertension I42.9 Cardiomyopathy, unspecified Z87.891 Personal history of nicotine dependence E11.65 Type 2 diabetes mellitus with hyperglycemia F32.9 Major depressive disorder, single episode, unspecified Office Visit 03/03/2019 2:00p [facility] Anna S. I25.10 Athscl heart Reginaldo, N.P. disease of [place] coronary artery w/o ang pctrs I25.2 Old myocardial infarction Z95.5 Presence of coronary angioplasty implant and graft R07.9 Chest pain, unspecified R60.0 Localized edema R06.00 Dyspnea, unspecified I10 Essential (primary) hypertension Assessments Date Code Description Provider 07/18/2019 I10 Essential (primary) hypertension Buddy Harris M.D. 07/18/2019 I42.9 Cardiomyopathy, unspecified Buddy Harris M.D. 07/18/2019 I25.10 Atherosclerotic heart disease of [place] Buddy Harris M.D. coronary artery with 07/18/2019 E11.9 Type 2 diabetes mellitus without Buddy Harris M.D. complications 07/18/2019 R07.9 Chest pain, unspecified Buddy Harris M.D. 07/18/2019 I49.49 Premature beats Buddy Harris M.D. 07/18/2019 G47.9 Sleep disorder Buddy Harris M.D. 04/20/2019 I10 Essential (primary) hypertension Anna SBrandan Hair, N.P. 04/20/2019 I42.9 Cardiomyopathy, unspecified Anna SBrandan Hair, N.P. 04/20/2019 I25.10 Atherosclerotic heart disease of [place] Anna SBrandan Hair, N.P. coronary artery with 04/20/2019 I25.2 Old myocardial infarction Anna SBrandan Hair, N.P. 04/20/2019 Z95.5 Presence of coronary angioplasty implant Anna S. Reginaldo, N.P. and graft 03/31/2019 E11.9 Type 2 diabetes mellitus without Latisha Campo, DO complications 03/31/2019 I10 Essential (primary) hypertension Latisha Campo, DO 03/31/2019 I42.9 Cardiomyopathy, unspecified Latisha Campo, DO 03/31/2019 Z87.891 Personal history of nicotine dependence Latisha Campo, DO 03/31/2019 E11.65 Type 2 diabetes mellitus with Latisha Campo, DO hyperglycemia 03/31/2019 F32.9 Major depressive disorder, single Latisha Campo, DO episode, unspecified 03/03/2019 I25.10 Atherosclerotic heart disease of [place] Anna Hair, N.P. coronary artery with 03/03/2019 I25.2 Old myocardial infarction Anna S. Reginaldo, N.P. 03/03/2019 Z95.5 Presence of coronary angioplasty implant Anna S. Reginaldo, N.P. and graft 03/03/2019 R07.9 Chest pain, unspecified Anna S. Foster, N.P. 03/03/2019 R60.0 Localized edema Anna S. Reginaldo, N.P. 03/03/2019 R06.00 Dyspnea, unspecified Anna S. Foster, N.P. 03/03/2019 I10 Essential (primary) hypertension Anna S. Reginaldo, N.P. Plan of Treatment Future Appointment(s):08/18/2019 1:30 pm - Nurse Visit [facility] at [facility]08/17/2019 3:00 pm - Nurse Visit cc at [facility]07/18/2019 - Buddy Harris M.D.I10 Essential (primary) ekneectoijdjQ28.9 Cardiomyopathy , kokgrrxwhifG63.10 Atherosclerotic heart disease of [place] coronary artery withFollow up:ov 7 mE11.9 Type 2 diabetes mellitus without uivwoqbsrmasiG55.9 Chest pain, raydoxyryhvS66.49 Premature beatsNew Orders:Holter Monitor, Scheduled: 08/17/19G47.9 Sleep disorderNew Orders:Overnight Oximetry, Scheduled : 08/15/19Referral:Ofelia Talamantes MD, Pulmonary Diseases Functional Status Description No Information Available Mental Status Description No Information Available Referrals Refer to Dr Reason for Referral Status Appt Date Ofelia Talamantes MD daytime sleepiness, snoring. evaluate for Created 00/00/ [address] [place] [address] [phone] Oswald Stanton MD Closed [address] [place] [address] [phone]
--- OUTSIDE RECORDS SUMMARY | 2019-08-12 18:17 | XMS REPORT ---
:1945 Author Organization [facility] Care Team Providers Name Role Phone Sanjana Meli Primary Care Physician Unavailable Allergies, Adverse Reactions, Alerts Allergy Code CodeSystem Reaction Severity Criticality Status Start Substance Date Moderate Medications Medication Medication Medication Start Stop Route Dose Status Fill Code CodeSystem Date Date Instructions alprazolam 211906 RxNorm oral 0.5 mg active Take 1/2 6-17 1/2 tablet twice tablet a day as twice a needed for 30 day day(s) rosuvastatin 208137 RxNorm 2017-08 oral 10 mg active for 90 1-07 tablet day(s) alprazolam 19720911 RxNorm 2018- oral 2 mg completed Take 1/2 mg 12-06 05-29 1/2 twice a day tablet for 30 day(s) twice a day alprazolam 19720911 RxNorm 2019- oral 2 mg completed Take 1/2 328 04-27 1/2 tablet twice tablet a day for 30 twice a day(s) day alprazolam 382357 RxNorm 2019- oral 0.5 mg completed Take 1/2 4-03 05-03 1/2 tablet twice tablet a day as twice a needed for 30 day day(s) alprazolam 19720911 RxNorm 2019- oral 2 mg completed for 30 3-28 04-29 tablet day(s) alprazolam 19720911 RxNorm 0 2019- oral 2 mg completed Take 1/2 mg 30 07-02 1/2 twice a day tablet for 30 day(s) twice a day atenolol 298086 RxNorm 2017-0 oral 25 mg active for 90 6-25 tablet day(s) irbesartan 20000413 RxNorm 2017-0 oral 75 mg active for 90 7-16 tablet day(s) clopidogrel 463725 RxNorm 2019-0 oral 75 mg active for 90 1-02 tablet day(s) sertraline 894618 RxNorm 2019- oral 100 mg completed for 30 5-14 08-12 tablet day(s) amlodipine 049241 RxNorm oral 10 mg active for 90 6-25 tablet day(s) sertraline 913660 RxNorm 2019- oral 100 mg completed for 90 2-13 05-14 tablet day(s) alprazolam 19720911 RxNorm oral 2 mg active Take 1/2 mg 8 1/2 twice a day tablet for 30 day(s) twice a day ezetimibe 003939 RxNorm oral 10 mg active for 90 6-25 tablet day(s) alprazolam 19720911 RxNorm 2018- oral 2 mg completed Take 1/2 mg 02-08 08- 1/2 twice a day tablet for 30 day(s) twice a day alprazolam 19720911 RxNorm 2017-08- oral 2 mg completed for 30 2-26 03-28 tablet day(s) alprazolam 756604 RxNorm 2018- oral 0.5 mg completed for 30 219 04-03 tablet day(s) alprazolam 19720911 RxNorm 2019- oral 2 mg completed Take 1/2 4-03 04-03 1/2 tablet twice tablet a day as twice a needed for 30 day day(s) Problems Problem Code CodeSystem Alternate Alternate Start End Status Narrative Name Code CodeSystem Date Date Panic 67100222 SNOMED-CT 2018-10 Active disorder -22 Relevant diagnostic tests/laboratory data Narrative No Information Procedures Procedure Code CodeSystem Target Date of Status Service Device Device Device Name Site Procedure Delivery Code Name UID Location Psychotherap [id number] SNOMED-CT () 2019-07-04 complete Mental y, 45 04 d Health- minutes with [place] patient [address], [id number] Psychotherap [id number] SNOMED-CT () 2019-07-29 complete Mental y, 45 04 d Health- minutes with [place] patient [address], [id number] Psychotherap [id number] SNOMED-CT () 2019-02-22 complete Mental y, 45 04 d Health- minutes with [place] patient [address], [id number] Psychotherap [id number] SNOMED-CT () 2019-03-15 complete Mental y, 45 04 d Health- minutes with [place] patient [address], [id number] Psychotherap [id number] SNOMED-CT () 2019-04-27 complete Mental y, 45 04 d Health- minutes with [place] patient [address], [id number] Psychotherap [id number] SNOMED-CT () 2019-06-09 complete Mental y, 45 04 d Health- minutes with [place] patient [address], [id number] Office or [id number] SNOMED-CT () 2018-11-10 complete Mental other 7 d Health- outpatient [place] visit for [address], established [id number] patient, [id number] which requires at least 2 of these 3 alws components: An expanded problem focused history; An expanded problem focused examination; Medical decision making of low Office or [id number] SNOMED-CT () 2019-05-03 complete Mental other 7 d Health- outpatient [place] visit for [address], [facility] [id number] patient, [phone] which requires at least 2 of these 3 laws components: An expanded problem focused history; An expanded problem focused examination; Medical decision making of low Office or [id number] SNOMED-CT () 2019-07-29 complete Mental other 6 d Health- outpatient [place] visit for [address], established [id number] patient, [id number] which requires at least 2 of these 3 laws components: A problem focused history; A problem focused examination; Straightforw shana medical decision making. Counselin Office or [id number] SNOMED-CT () 2019-02-08 complete Mental other 6 d Health- outpatient [place] visit for [address], [facility] [id number] patient, [phone] which requires at least 2 of these 3 laws components: A problem focused history; A problem focused examination; Straightforw shana medical decision making. Sofia SNOMED-CT () 2019-06-[address], [id number] Encounters/Encounter Diagnoses Encounter Name Encounter Diagnosis Diagnosis Diagnosis Date of Service Code Code Name CodeSystem Diagnosis Delivery Location [facility] [id number] Panic SNOMED-CT 2019-07-29 Behavioral Established disorder Health patient [facility] , , Minutes , Vital Signs No Information Social History Element Description Description Start End Code CodeSystem AdditionalInfo Date Date SexAssignedAtBirth Male 1946-0 M AdministrativeGender 09-04 Hospital Discharge Instructions Reason For Referral Medical Equipment FDA Assessments
[2019-08-12 19:09] LABS: Urine Appearance Clear; Urine Bilirubin Negative (Negative); Urine Blood Negative (Negative); Urine Color Yellow; Urine Glucose Negative (Negative); Urine Ketones Negative (Negative); Urine Nitrite Negative (Negative); Urine Protein Negative (Negative); Urine Specific Gravity 1.005 (1.010-1.030); Urine Urobilinogen Negative (Negative)
--- NOTE | 2019-08-12 19:28 | ED ---
HPI Chest Pain - HPI Summary HPI Summary: Patient is a 73 y/o M presenting to the ED for a chief complaint of fatigue, intermittent diffuse chest pain, dysuria and concern over his medications. On triage, patient rates his chest pain as 5/10 in severity. Patient also notes lightheadedness/dizziness, headache, fatigue, suprapubic abdominal pain for the last 3 days, abdominal distention, diarrhea, tremors, generalized weakness, malodorous brown urine, and pain with urination. Patient believes he "ripped something" in his abdomen after lifting a heavy object. He drank buttermilk for his abdominal pain without relief. One month ago, he also noticed a rash on the bilateral arms that he describes as "bubbles." He reports generalized body aches from a cholesterol medication he takes. He states he wears a nitro patch daily for the chest pain. He denies any aggravating factors. He was sent to [facility] by his PCP, Dr. Campo, to rule out possible SSRI syndrome. He denies any recent medication changes. On medical record review, patient had a cardiac stress test in January 2019, some wall motion abnormalities for which is being medically managed. An echocardiogram showed an EF of 40-45%. PMHx is significant for ischemic cardiomyopathy, congestive heart failure, and coronary artery disease. - History of Current Complaint Chief Complaint: EDChestPainROMI Time Seen by Provider: 08/12/19 18:54 Hx Obtained From: Patient Onset/Duration: Atraumatic, Still Present Timing: Constant Initial Severity: Moderate Current Severity: Moderate Pain Intensity: 5 Pain Scale Used: 0-10 Numeric Chest Pain Location: Diffuse Chest Pain Radiates: No Aggravating Factor(s): Nothing Alleviating Factor(s): Nothing Associated Signs and Symptoms: Positive: Chest Pain, Headaches, Weakness - Generalized, Dizziness, Abdominal Pain - Suprapubic - Additional Pertinent History Primary Care Physician: [email or web address] - Allergy/Home Medications Allergies/Adverse Reactions: Allergies Allergy/AdvReac Type Severity Reaction Status Date / Time buspirone [From BuSpar] AdvReac Unknown Verified 01/11/19 15:09 Reaction Details clonazepam [From Klonopin] AdvReac Unknown Verified 01/11/19 15:09 Reaction Details Home Medications: Home Medications ALPRAZolam (NF) 1 MG TAB 1 mg PO BID MDD 2 mg 08/12/19 [History Confirmed ] ALPRAZolam TAB* [Xanax TAB*] 0.5 mg PO DAILY PRN 08/12/19 [History Confirmed 10/27] Chlorthalidone 12.5 mg PO DAILY 08/12/19 [History Confirmed 08/12/19] PMH/Surg Hx/FS Hx/Imm Hx Previously Healthy: Yes Endocrine/Hematology History: Reports: Hx Anticoagulant Therapy - plavix, Hx Diabetes - type 2 Cardiovascular History: Reports: Hx Angina, Hx Coronary Artery Disease, Hx Hypercholesterolemia, Hx Hypertension - WITH MEDS, Hx Myocardial Infarction Denies: Hx Congestive Heart Failure, Hx Pacemaker/ICD Respiratory History: Reports: Hx Chronic Obstructive Pulmonary Disease (COPD) Denies: Hx Asthma GI History: Denies: Hx Diverticulosis History: Denies: Hx Renal Disease Sensory History: Reports: Hx Contacts or Glasses Denies: Hx Legally Blind, Hx Deafness, Hx Hearing Aid Opthamlomology History: Reports: Hx Contacts or Glasses Denies: Hx Legally Blind EENT History: Denies: Hx Deafness Neurological History: Denies: Hx Dementia Psychiatric History: Denies: Hx Panic Disorder - Surgical History Surgical History: Yes Surgery Procedure, Year, and Place: TRIPLE BYPASS 1993 CARDIAC STENTS;. Infectious Disease History: No Infectious Disease History: Denies: Traveled Outside the [place] in Last 30 Days - Family History Known Family History: Positive: Cardiac Disease - mother, father, uncles, Diabetes - Social History Occupation: Disabled Alcohol Use: None Hx Substance Use: No Substance Use Type: Reports: None Hx Tobacco Use: Yes Smoking Status (MU): Former Smoker Type: Cigarettes Review of Systems Positive: Fatigue Positive: Chest Pain Positive: Abdominal Pain - Suprapubic, Diarrhea, Other - Positive abdominal distention Positive: pain - With urination, other - Positive malodorous brown urine Positive: Myalgia - Generalized body aches Positive: Rash - Bilateral arms Neurological: Other - Positive dizziness and tremors Positive: Headache, Weakness - Generalized All Other Systems Reviewed And Are Negative: Yes Physical Exam - Summary Physical Exam Summary: Constitutional: Well-developed, Well-nourished, Alert. (-) Distressed Skin: Warm, Dry HENT: Normocephalic; Atraumatic Eyes: Conjunctiva normal Neck: Musculoskeletal ROM normal neck. (-) JVD, (-) Stridor, (-) Nuchal rigidity Cardio: Rhythm regular, rate normal, Heart sounds normal; Intact distal pulses; Radial pulses are 2+ and symmetric. (-) Murmur Pulmonary/Chest wall: Effort normal. (-) Respiratory distress, (-) Wheezes, (-) Rales Abd: Soft, (-) Distension, (-) Guarding, (-) Rebound. 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 Mild right inguinal tenderness, no obvious hernia. Triage Information Reviewed: Yes Vital Signs On Initial Exam: Initial Vitals Temp Pulse Resp BP Pulse Ox 98.7 F 69 18 152/107 98 08/12/19 17:44 08/12/19 17:44 08/12/19 17:44 08/12/19 17:44 08/12/19 17:44 Vital Signs Reviewed: Yes Procedures - Sedation Patient Received Moderate/Deep Sedation with Procedure: No Diagnostics - Vital Signs Vital Signs Temp Pulse Resp BP Pulse Ox 08/12/19 17:44 98.7 F 69 18 152/107 98 - Laboratory Lab Results: Lab Results 08/12/19 Range/Units 18:00 Urine Color Yellow Urine Appearance Clear Urine pH 7.0 (5-9) Ur Specific [place] 1.005 L (1.010-1.030) Urine Protein Negative (Negative) Urine Ketones Negative (Negative) Urine Blood Negative (Negative) Urine Nitrate Negative (Negative) Urine Bilirubin Negative (Negative) Urine Urobilinogen Negative (Negative) Ur Leukocyte Esterase Negative (Negative) Urine Glucose Negative (Negative) Result Diagrams: 08/12/19 18:40 08/12/19 18:40 Lab Statement: Any lab studies that have been ordered have been reviewed, and results considered in the medical decision making process. - EKG 17:54 Cardiac Rate: NL - 65 BPM EKG Rhythm: Sinus Rhythm ST Segment: Normal Ectopy: None EKG Comparison: No Significant Change Summary of EKG Findings: An EKG at 17:54 reveals normal sinus rhythm with 65 BPM , PVCs, RBBB, nml axis, nml intervals. No STEMI. No acute changes. When compared to 02/25/19, no significant change. Reviewed and interpreted by Dr. Dutta. Re-Evaluation - Re-Evaluation First Eval Re-Evaluation Time: 21:21 Change: Unchanged Comment: At 21:21, patient is able to ambulate with a cane and a steady gait. denies CP. Feels well enough to go home. Chest Pain Course/Dx - Course Course Of Treatment: 73 y/o male w extensive cardiac hx (stents, [place], CABG), depression on Zoloft, presents with multiple complaints. - Regarding lower abdominal pain, mild right inguinal canal tenderness, does not appear to have an incarcerated hernia. Urinalysis without infection. - Regarding fatigue, labs notable for stable hemoglobin, normal electrolytes. Ambulating in ED w/o difficulty. - patient has an extensive cardiac history, troponin negative 2 here. Patient had a cardiac workup in February and follows with cardiology. No new CP or changes in CP. - patient also worried about his SSRI dose, no evidence of serotonin syndrome, no fevers/clonus/tachycardia. - Advised to follow-up with his PCP - Diagnoses Provider Diagnoses: Groin pain, Fatigue Discharge ED - Sign-Out/Discharge Documenting (check all that apply): Patient Departure - Discharge - Discharge Plan Condition: Stable Disposition: HOME Patient Education Materials: Dysuria (ED), Fatigue (ED) Referrals: Latisha Campo DO [Primary Care Provider] - Additional Instructions: You were seen in the emergency department for fatigue and groin pain. Your EKG ( heart tracing) and labs did not show any cause for pain. It is important that you follow up with you primary care doctor in the next 1-2 days. If you have chest pain, you should schedule an outpatient stress test. Please return to the emergency department for passing out, chest pain, trouble breathing, or if you' re concerned. - Billing Disposition and Condition Condition: STABLE Disposition: Home - Attestation Statements Document Initiated by Scribe: Yes Documenting Scribe: Nany Guan Provider For Whom Miguel is Documenting (Include Credential): Denny Dutta MD Scribe Attestation: Nany Zaragoza, scribed for Denny Dutta MD on 08/12/19 at 2155. Scribe Documentation Reviewed: Yes Provider Attestation: The documentation as recorded by the Nany mendoza Freida accurately reflects the service I personally performed and the decisions made by me, Denny Dutta MD Status of Scribe Document: Viewed
[2019-08-12 19:51] LABS: ABS Eosinophils 0.2 10^3/ul (0-0.6); ABS Lymphocytes 2.7 10^3/ul (1.0-4.8); ABS Monocytes 0.7 10^3/ul (0-0.8); ABS Neutrophils 4.9 10^3/ul (1.5-7.7); Eosinophil % 2.7 %; Hematocrit 42 % (42-52); Hemoglobin 14.7 g/dL (14.0-18.0); Lymphocyte % 31.9 %; Mean Corpuscular HGB Conc 36 g/dL (31-36); Mean Corpuscular Hemoglobin 33 pg (27-31); Mean Corpuscular Volume 94 fL (80-94); Mean Platelet Volume 7.5 fL (7.4-10.4); Nucleated Red Blood Cells % 0.2; Platelet Count 154 10^3/uL (150-450); Red Blood Count 4.43 10^6 /uL (4.18-5.48); Red Cell Distribution Width 14 % (10-15); White Blood Count 8.6 10^3/uL (3.5-10.8)
[2019-08-12 20:18] LABS: Troponin I 0.02 ng/mL (<0.03)
[2019-08-12 20:19] LABS: Albumin 4.3 g/dL (3.2-5.2); Albumin/Globulin Ratio 1.5 (1-3); BUN/Creatinine Ratio 10.5 (8-20); Calcium 9.6 mg/dL (8.6-10.3); EGFR African American 93.5 (>60); EGFR Non-African American 77.3 (>60); Globulin 2.8 g/dL (2-4); Potassium 3.6 mmol/L (3.5-5.0); Total Bilirubin 0.8 mg/dL (0.2-1.0); Total Protein 7.1 g/dL (6.4-8.9)
[2019-08-12 20:22] LABS: INR 1.05 (0.82-1.09)
[2019-08-12 21:33] VITALS: BP 156/74
== END 2019-08-12 21:30 | disposition home or self-care (01) ==
LOC: ED 17:31
DX: R10.31 Right lower quadrant pain (principal); R53.83 Other fatigue; R07.89 Other chest pain; R30.0 Dysuria; R42 Dizziness and giddiness; R51 Headache; R21 Rash and other nonspecific skin eruption; R19.7 Diarrhea, unspecified; M79.10 Myalgia, unspecified site; I45.2 Bifascicular block; E11.9 Type 2 diabetes mellitus without complications; Z79.84 Long term (current) use of oral hypoglycemic drugs; I10 Essential (primary) hypertension; E78.00 Pure hypercholesterolemia, unspecified; J44.9 Chronic obstructive pulmonary disease, unspecified; F32.9 Major depressive disorder, single episode, unspecified; Z79.01 Long term (current) use of anticoagulants; Z95.1 Presence of aortocoronary bypass graft; Z95.5 Presence of coronary angioplasty implant and graft; Z88.8 Allergy status to other drugs, medicaments and biological substances; Z87.891 Personal history of nicotine dependence
CPT/HCPCS: 36415; 80053; 81003; 84484; 85025; 85610; 93005; 99283

== ENCOUNTER 2019-08-15 01:16 | Emergency (ER) | payer MEDICARE ==
--- NOTE | 2019-08-15 01:23 | ED ---
Complex/Multi-Sys Presentation - HPI Summary HPI Summary: Patient is a 73 y/o diabetic male presenting to [facility] via EMS for chest pain and concerns about his blood sugar. He states that he had measured his BG to be 125, patient wanted advice on whether or not he should take an additional dose of metformin. Chest pain has been present at his lower-mid sternal area for the past few days. Patient reports that his chest pain is constant and notes sleep disturbance secondary to this pain. N/V are denied, but some decreased appetite is endorsed. Radiation of pain downwards to his abdomen is noted. He states that Sx appeared to improve when his BG was decreased and with food. PSHx of CABG, surgery for enlarged lymph node at his posterior neck noted. Hx of gallbladder issues noted, patient still has his gallbladder. Hx of PTSD is reported. Home medications and allergies are reviewed. - History Of Current Complaint Hx Obtained From: Patient Onset/Duration: Lasting Days, Still Present Timing: Constant, Days Location: Pain At: - lower sternal, Radiates To: - abdomen Aggravating Factor(s): nothing Alleviating Factor(s): lower BG levels, food Associated Signs And Symptoms: Positive: Chest Pain, Abdominal Pain, Other - positive - decreased appetite, sleep distrubance, concerns with his BG. Negative: Nausea, Vomiting - Allergies/Home Medications Allergies/Adverse Reactions: Allergies Allergy/AdvReac Type Severity Reaction Status Date / Time buspirone [From BuSpar] AdvReac Unknown Verified 01/11/19 15:09 Reaction Details clonazepam [From Klonopin] AdvReac Unknown Verified 01/11/19 15:09 Reaction Details PMH/Surg Hx/FS Hx/Imm Hx Endocrine/Hematology History: Reports: Hx Anticoagulant Therapy - plavix, Hx Diabetes - type 2 Cardiovascular History: Reports: Hx Angina, Hx Coronary Artery Disease, Hx Hypercholesterolemia, Hx Hypertension - WITH MEDS, Hx Myocardial Infarction Denies: Hx Congestive Heart Failure, Hx Pacemaker/ICD Respiratory History: Reports: Hx Chronic Obstructive Pulmonary Disease (COPD) Denies: Hx Asthma GI History: Denies: Hx Diverticulosis History: Denies: Hx Renal Disease Sensory History: Reports: Hx Contacts or Glasses Denies: Hx Legally Blind, Hx Deafness, Hx Hearing Aid Opthamlomology History: Reports: Hx Contacts or Glasses Denies: Hx Legally Blind Neurological History: Denies: Hx Dementia Psychiatric History: Denies: Hx Panic Disorder - Surgical History Surgery Procedure, Year, and Place: TRIPLE BYPASS 1993 - CARDIAC STENTS;. - Family History Known Family History: Positive: Cardiac Disease - mother, father, uncles, Diabetes - Social History Alcohol Use: None Hx Substance Use: No Substance Use Type: Reports: None Hx Tobacco Use: Yes Smoking Status (MU): Former Smoker Type: Cigarettes Review of Systems Constitutional: Other - positive - sleep disturbance, concerns of BG Positive: Chest Pain Gastrointestinal: Other - positive - decreased appetite Positive: Abdominal Pain. Negative: Vomiting, Nausea All Other Systems Reviewed And Are Negative: Yes Physical Exam - Summary Physical Exam Summary: Appearance: Well-appearing, Well-nourished, lying in bed comfortably Skin: Warm, dry, no obvious rash; there is a well healed midline sternotomy scar Eyes: sclera anicteric, no conjunctival pallor ENT: mucous membranes moist, pharynx appears normal Neck: Supple, nontender Respiratory: Clear to auscultation, no signs of respiratory distress Cardiovascular: Normal S1, S2. No murmurs. Normal distal pulses in tibial and radial bilaterally. Abdomen: Soft, RUQ tenderness without peritoneal signs, normal active bowel sounds present Musculoskeletal: Normal, Strength/ROM Intact Neurological: A&Ox3, awake and alert, mentation is normal, speech is fluent and appropriate Psychiatric: affect is normal, does not appear anxious or depressed Triage Information Reviewed: Yes Vital Signs Reviewed: Yes Procedures - Sedation Patient Received Moderate/Deep Sedation with Procedure: No Diagnostics - Laboratory Result Diagrams: 08/15/19 01:27 08/15/19 01:27 Lab Statement: Any lab studies that have been ordered have been reviewed, and results considered in the medical decision making process. - CT CT ABD/PEL CT Interpretation Completed By: Radiologist Summary of CT Findings: IMPRESSION: 1. The aorta is noted ectatic. There is scattered atherosclerotic disease. noted. 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 measure 1.6 cm and the right and 2.6 CM on the left. 2. There is nonspecific circumferential bladder wall thickening. Cystoscopy may. be performed for further evaluation. 3. The prostate is enlarged measuring approximately 5.5 CM. 4. There is a stable 2.2 CM lucent lesion noted in the right iliac bone. THIS REPORT WAS REVIEWED BY ED PHYSICIAN. Re-Evaluation - Re-Evaluation First Eval Re-Evaluation Time: 01:41 Comment: Upon review of medical records, it is noted that the patient had a similar presentation to [facility] in January 2019. He was admitted. Cardiac workup was done and negative. US and CT ABD/PEL showed no significant abnormalities. Surgeon did not believe that the patients Sx were related to his gallbladder. Second Eval Re-Evaluation Time: 04:55 Comment: Results of workup were discussed, patient to be discharged to home with PCP followup. Complex Multi-Symp Course/Dx Course Of Treatment: Patient is a 73 y/o diabetic male presenting to [facility] via EMS for chest pain and concerns about his blood sugar. He states that he had measured his BG to be 125, patient wanted advice on whether or not he should take an additional dose of metformin. Chest pain has been present at his lower- mid sternal area for the past few days. Patient reports that his chest pain is constant and notes sleep disturbance secondary to this pain. N/V are denied, but some decreased appetite is endorsed. Radiation of pain downwards to his abdomen is noted. He states that Sx appeared to improve when his BG was decreased and with food. PSHx of CABG, surgery for enlarged lymph node at his posterior neck noted. Hx of gallbladder issues noted, patient still has his gallbladder. Hx of PTSD is reported. RUQ tenderness without peritoneal signs is noted on physical exam. Bloodwork was obtained. First trop was 0.03, second was 0.03. Lactic acid was 2.9, glucose 149, total bilirubin 1.1, MPV 6.5, MCH 34. CT ABD/PEL IMPRESSION: 1. The aorta is noted ectatic. There is scattered atherosclerotic disease. noted. 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 measure 1.6 cm and the right and 2.6 CM on the left. 2. There is nonspecific circumferential bladder wall thickening. Cystoscopy may. be performed for further evaluation. 3. The prostate is enlarged measuring approximately 5.5 CM. 4. There is a stable 2.2 CM lucent lesion noted in the right iliac bone. Results of workup were discussed, patient to be discharged to home with PCP followup. - Diagnoses Provider Diagnoses: Abdominal pain Discharge ED - Sign-Out/Discharge Documenting (check all that apply): Patient Departure - discharge - Discharge Plan Condition: Stable Disposition: HOME Patient Education Materials: Gastritis (ED), Acute Abdominal Pain (ED) Referrals: Latisha Campo DO [Primary Care Provider] - As Soon As Possible - Billing Disposition and Condition Condition: STABLE Disposition: Home - Attestation Statements Document Initiated by Miguel: Yes Documenting Scribe: KARMEN BENSON Provider For Whom Miguel is Documenting (Include Credential): PALLAVI WHITE MD Scribe Attestation: IKARMEN, scribed for PALLAVI WHITE MD on 08/16/19 at 0521. Scribe Documentation Reviewed: Yes Provider Attestation: The documentation as recorded by the KARMEN mendoza accurately reflects the service I personally performed and the decisions made by me, PALLAVI WHITE MD Status of Scribe Document: Viewed
[2019-08-15 01:35] LABS: ABS Basophils 0.1 10^3/ul (0-0.2); ABS Eosinophils 0.3 10^3/ul (0-0.6); ABS Lymphocytes 3.3 10^3/ul (1.0-4.8); ABS Monocytes 0.8 10^3/ul (0-0.8); ABS Neutrophils 4.8 10^3/ul (1.5-7.7); Eosinophil % 2.9 %; Hematocrit 43 % (42-52); Hemoglobin 15.4 g/dL (14.0-18.0); Lymphocyte % 36.1 %; Mean Corpuscular HGB Conc 36 g/dL (31-36); Mean Corpuscular Hemoglobin 34 pg (27-31); Mean Corpuscular Volume 94 fL (80-94); Mean Platelet Volume 6.5 fL (7.4-10.4); Platelet Count 183 10^3/uL (150-450); Red Blood Count 4.58 10^6 /uL (4.18-5.48); Red Cell Distribution Width 14 % (10-15); White Blood Count 9.2 10^3/uL (3.5-10.8)
[2019-08-15 01:52] LABS: ALT 16 U/L (7-52); AST 19 U/L (13-39); Albumin 4.5 g/dL (3.2-5.2); Albumin/Globulin Ratio 1.5 (1-3); Alkaline Phosphatase 64 U/L (34-104); Anion Gap 9 mmol/L (2-11); BUN/Creatinine Ratio 17.3 (8-20); Blood Urea Nitrogen 17 mg/dL (6-24); CO2 Carbon Dioxide 26 mmol/L (22-32); Calcium 9.8 mg/dL (8.6-10.3); Chloride 104 mmol/L (101-111); EGFR African American 90.2 (>60); EGFR Non-African American 74.6 (>60); Glucose 149 mg/dL (70-100); Potassium 4.3 mmol/L (3.5-5.0); Sodium 139 mmol/L (135-145); Total Protein 7.5 g/dL (6.4-8.9)
[2019-08-15 01:55] LABS: Troponin I 0.03 ng/mL (<0.03)
[2019-08-15 02:03] LABS: Alcohol < 10 mg/dL (<10)
[2019-08-15] MEDS ORDERED: Iodixanol* (CONTRAST) 320 MG/ML 100 ML SDV IV ONE (03:45)
[2019-08-15 04:48] LABS: Troponin I 0.03 ng/mL (<0.03)
[2019-08-15] MEDS ORDERED: hydrOXYzine HCL TAB* 50 MG PO ONE (05:25)
[2019-08-15 05:53] VITALS: BP 138/84
== END 2019-08-15 05:30 | disposition home or self-care (01) ==
LOC: ED 01:16
DX: R10.11 Right upper quadrant pain (principal); R07.89 Other chest pain; E11.9 Type 2 diabetes mellitus without complications; Z79.84 Long term (current) use of oral hypoglycemic drugs; I77.819 Aortic ectasia, unspecified site; I70.0 Atherosclerosis of aorta; I25.41 Coronary artery aneurysm; N40.0 Benign prostatic hyperplasia without lower urinary tract symptoms; M89.9 Disorder of bone, unspecified; I10 Essential (primary) hypertension; Z79.01 Long term (current) use of anticoagulants; Z95.1 Presence of aortocoronary bypass graft; Z95.5 Presence of coronary angioplasty implant and graft; Z88.8 Allergy status to other drugs, medicaments and biological substances; Z87.891 Personal history of nicotine dependence
CPT/HCPCS: 36415; 74177; 80053; 80320; 83605; 83690; 84484; 85025; 93005; 99284; G0480; Q9967

== ENCOUNTER 2021-08-06 14:25 | Inpatient (IN) ==
[2021-08-06] MEDS ORDERED: Albuterol HFA INHALER 8 gm MDI INH ONE (14:51)
[2021-08-06 16:59] LABS: ABS Lymphocytes 0.5 10^3/ul (1.0-4.8); ABS Monocytes 0.1 10^3/ul (0-0.8); ABS Neutrophils 2.7 10^3/ul (1.5-7.7); Hematocrit 36 % (42-52); Hemoglobin 12.4 g/dL (14.0-18.0); Lymphocyte % 15.2 %; Mean Corpuscular HGB Conc 34 g/dL (31-36); Mean Corpuscular Hemoglobin 31 pg (27-31); Mean Corpuscular Volume 90 fL (80-94); Mean Platelet Volume 8.4 fL (7.4-10.4); Platelet Count 137 10^3/uL (150-450); Red Blood Count 4.03 10^6 /uL (4.18-5.48); Red Cell Distribution Width 14 % (10-15); White Blood Count 3.3 10^3/uL (3.5-10.8)
[2021-08-06 17:09] LABS: Activated Partial Thrombo Time 29.5 seconds (26.0-38.0); INR 1.06 (0.86-1.15)
[2021-08-06 17:18] LABS: ALT 104 U/L (7-52); AST 109 U/L (13-39); Albumin 3.3 g/dL (3.2-5.2); Alkaline Phosphatase 71 U/L (35-149); Anion Gap 9 mmol/L (2-11); Blood Urea Nitrogen 23 mg/dL (6-24); C Reactive Protein 95.44 mg/L (<8.01); CO2 Carbon Dioxide 21 mmol/L (22-32); Calcium 8.4 mg/dL (8.6-10.3); Chloride 105 mmol/L (101-111); Globulin 3.3 g/dL (2-4); Glucose 194 mg/dL (70-100); Potassium 3.6 mmol/L (3.5-5.0); Sodium 135 mmol/L (135-145); Total Protein 6.6 g/dL (6.4-8.9); eGFR CKD-EPI 91.8 (>60)
[2021-08-06 17:22] LABS: Troponin I 0.03 ng/mL (<0.03)
[2021-08-06 17:24] LABS: LDH 273 U/L (140-271)
[2021-08-06 17:44] LABS: Ferritin 1066.8 ng/mL (24-336)
[2021-08-06] MEDS ORDERED: Albuterol HFA INHALER 8 gm MDI INH PRN (20:17)
[2021-08-06] MEDS ORDERED: Remdesivir 100 mg Vial 200 MG in NS 0.9% 250 ml 210 ML IV ONE (20:21)
[2021-08-06] MEDS ORDERED: Dextrose 50% Syringe 50 ml 25 GM/50 ML SYRINGE IV PUSH PRN (20:40)
[2021-08-06 21:38] LABS: INR 1.04 (0.86-1.15)
[2021-08-06 21:47] LABS: Albumin 3.2 g/dL (3.2-5.2); Calcium 8.6 mg/dL (8.6-10.3); Globulin 3.3 g/dL (2-4); Magnesium 2.1 mg/dL (1.9-2.7); Potassium 3.8 mmol/L (3.5-5.0); Total Bilirubin 0.6 mg/dL (0.2-1.0); Total Protein 6.5 g/dL (6.4-8.9); eGFR CKD-EPI 90.8 (>60)
[2021-08-06 21:49] LABS: Troponin I 0.02 ng/mL (<0.03)
[2021-08-06] MEDS: Enoxaparin 40 MG/0.4 ML SYR SUBCUT SCH (23:50)
[2021-08-07] MEDS: Insulin GLARGINE 100 un/ml 10 ml VIAL SUBCUT SCH ×2 (01:20→21:38)
[2021-08-07 07:14] LABS: ABS Basophils 0.1 10^3/ul (0-0.2); ABS Lymphocytes 0.6 10^3/ul (1.0-4.8); ABS Monocytes 0.5 10^3/ul (0-0.8); ABS Neutrophils 4.1 10^3/ul (1.5-7.7); Hematocrit 40 % (42-52); Hemoglobin 13.7 g/dL (14.0-18.0); Lymphocyte % 11.7 %; Mean Corpuscular HGB Conc 35 g/dL (31-36); Mean Corpuscular Hemoglobin 31 pg (27-31); Mean Corpuscular Volume 89 fL (80-94); Platelet Count 162 10^3/uL (150-450); Red Blood Count 4.45 10^6 /uL (4.18-5.48); Red Cell Distribution Width 14 % (10-15); White Blood Count 5.3 10^3/uL (3.5-10.8)
[2021-08-07 07:22] LABS: INR 1.04 (0.86-1.15)
[2021-08-07 07:30] LABS: Albumin 3.4 g/dL (3.2-5.2); Albumin/Globulin Ratio 0.9 (1-3); Calcium 9.3 mg/dL (8.6-10.3); Globulin 3.7 g/dL (2-4); Potassium 3.7 mmol/L (3.5-5.0); Total Bilirubin 0.7 mg/dL (0.2-1.0); Total Protein 7.1 g/dL (6.4-8.9); eGFR CKD-EPI 90.5 (>60)
[2021-08-07] MEDS ORDERED: oxyCODONE/Acetamin 5/325 mg TAB PO PRN (11:03)
[2021-08-07] MEDS ORDERED: Furosemide 40 mg/4 ml IV VIAL IV STA (16:42)
[2021-08-07] MEDS: Enoxaparin 40 MG/0.4 ML SYR SUBCUT SCH (20:47)
[2021-08-07] MEDS: Remdesivir 100 mg Vial 100 MG in NS 0.9% 250 ml 230 ML IV SCH (21:33)
[2021-08-08 05:38] LABS: ABS Lymphocytes 1.1 10^3/ul (1.0-4.8); ABS Monocytes 0.9 10^3/ul (0-0.8); ABS Neutrophils 10.3 10^3/ul (1.5-7.7); Hematocrit 43 % (42-52); Hemoglobin 14.6 g/dL (14.0-18.0); Mean Corpuscular HGB Conc 34 g/dL (31-36); Mean Corpuscular Hemoglobin 30 pg (27-31); Mean Corpuscular Volume 88 fL (80-94); Nucleated Red Blood Cells % 0.1; Platelet Count 219 10^3/uL (150-450); Red Blood Count 4.83 10^6 /uL (4.18-5.48); Red Cell Distribution Width 14 % (10-15); White Blood Count 12.4 10^3/uL (3.5-10.8)
[2021-08-08 05:51] LABS: INR 1.12 (0.86-1.15)
[2021-08-08 05:56] LABS: Albumin 3.3 g/dL (3.2-5.2); Calcium 8.8 mg/dL (8.6-10.3); Globulin 3.4 g/dL (2-4); Potassium 3.1 mmol/L (3.5-5.0); Total Bilirubin 0.7 mg/dL (0.2-1.0); Total Protein 6.7 g/dL (6.4-8.9); eGFR CKD-EPI 95.3 (>60)
[2021-08-08] MEDS ORDERED: Ondansetron 4 mg VIAL 2 MG/ML 2 ml VIAL IV PRN (07:43)
[2021-08-08] MEDS ORDERED: Trimethobenzamide *IM* 100 mg/ml 2 ml VIAL (200 mg) IM PRN (07:44)
[2021-08-08 08:31] LABS: Magnesium 1.9 mg/dL (1.9-2.7)
[2021-08-08] MEDS: Potassium Chlor 20 meq TAB.ER PO SCH ×2 (08:41→12:15)
[2021-08-08] MEDS ORDERED: Potassium Chlor 20 meq TAB.ER PO ONE (13:36)
[2021-08-08] MEDS ORDERED: Furosemide 20 mg/2 ml IV VIAL IV ONE (13:37)
[2021-08-08 19:09] LABS: TSH Ultra Thyroid Stim Horm 2.15 mcIU/mL (0.34-5.60)
[2021-08-08] MEDS ORDERED: Magnesium CITRATE LIQ 300 ML BTL PO ONE (19:45)
[2021-08-08] MEDS ORDERED: Iodixanol (CONTRAST) 320 MG/ML 100 ML SDV IV ONE (20:45)
[2021-08-08] MEDS: Remdesivir 100 mg Vial 100 MG in NS 0.9% 250 ml 230 ML IV SCH (22:17)
[2021-08-08] MEDS: Enoxaparin 40 MG/0.4 ML SYR SUBCUT SCH (22:20)
[2021-08-08] MEDS: Insulin GLARGINE 100 un/ml 10 ml VIAL SUBCUT SCH (22:21)
[2021-08-08] MEDS: Senna TAB 8.6 mg TAB PO SCH (22:23)
[2021-08-09 06:16] LABS: ABS Lymphocytes 0.7 10^3/ul (1.0-4.8); ABS Monocytes 0.9 10^3/ul (0-0.8); Hematocrit 45 % (42-52); Hemoglobin 15.4 g/dL (14.0-18.0); Lymphocyte % 5.5 %; Mean Corpuscular HGB Conc 34 g/dL (31-36); Mean Corpuscular Hemoglobin 30 pg (27-31); Mean Corpuscular Volume 88 fL (80-94); Mean Platelet Volume 7.9 fL (7.4-10.4); Platelet Count 245 10^3/uL (150-450); Red Blood Count 5.13 10^6 /uL (4.18-5.48); Red Cell Distribution Width 15 % (10-15); White Blood Count 12.6 10^3/uL (3.5-10.8)
[2021-08-09 06:28] LABS: INR 1.23 (0.86-1.15)
[2021-08-09 06:37] LABS: Albumin 3.5 g/dL (3.2-5.2); Calcium 9.3 mg/dL (8.6-10.3); Globulin 3.5 g/dL (2-4); Potassium 3.6 mmol/L (3.5-5.0); Total Bilirubin 0.9 mg/dL (0.2-1.0); eGFR CKD-EPI 94.9 (>60)
[2021-08-09] MEDS: Senna TAB 8.6 mg TAB PO SCH ×3 (08:28→20:45)
[2021-08-09] MEDS ORDERED: Magnesium CITRATE LIQ 300 ML BTL PO ONE (16:15)
[2021-08-09] MEDS: Remdesivir 100 mg Vial 100 MG in NS 0.9% 250 ml 230 ML IV SCH (20:39)
[2021-08-09] MEDS: Insulin GLARGINE 100 un/ml 10 ml VIAL SUBCUT SCH (21:10)
[2021-08-09] MEDS: Enoxaparin 40 MG/0.4 ML SYR SUBCUT SCH (22:14)
[2021-08-10 06:41] LABS: ABS Lymphocytes 0.8 10^3/ul (1.0-4.8); ABS Neutrophils 12.2 10^3/ul (1.5-7.7); Hematocrit 44 % (42-52); Lymphocyte % 5.4 %; Mean Corpuscular HGB Conc 34 g/dL (31-36); Mean Corpuscular Hemoglobin 31 pg (27-31); Mean Corpuscular Volume 89 fL (80-94); Mean Platelet Volume 8.2 fL (7.4-10.4); Platelet Count 238 10^3/uL (150-450); Red Blood Count 4.93 10^6 /uL (4.18-5.48); Red Cell Distribution Width 14 % (10-15); White Blood Count 13.9 10^3/uL (3.5-10.8)
[2021-08-10 06:43] LABS: INR 1.34 (0.86-1.15)
[2021-08-10 06:57] LABS: Albumin 3.3 g/dL (3.2-5.2); Albumin/Globulin Ratio 0.9 (1-3); Calcium 9.3 mg/dL (8.6-10.3); Globulin 3.6 g/dL (2-4); Potassium 3.2 mmol/L (3.5-5.0); Total Bilirubin 1.2 mg/dL (0.2-1.0); Total Protein 6.9 g/dL (6.4-8.9)
[2021-08-10] MEDS: Senna TAB 8.6 mg TAB PO SCH ×2 (09:10→21:59)
[2021-08-10] MEDS ORDERED: Lorazepam PYXIS KEY PRN (09:55)
[2021-08-10] MEDS: LORazepam 2 mg VIAL 1 ml IV PUSH SCH ×2 (10:17→21:44)
[2021-08-10] MEDS ORDERED: Lactated Ringers 1000 ml BAG 1,000 ML IV SCH (11:00)
[2021-08-10 11:17] LABS: PCO2 Arterial 31 mmHg (35-45); PO2 Arterial 67 mmHg (80-100)
[2021-08-10] MEDS: methylPREDNISolone SOD 40 mg/ml 1 ml VIAL IV SCH ×2 (11:22→23:34)
[2021-08-10 11:26] LABS: Magnesium 2.3 mg/dL (1.9-2.7)
[2021-08-10] MEDS: KCL 20 MEQ/100 ML IVPREMIX 20 MEQ/100 ML BAG IV SCH ×2 (16:27→23:40)
[2021-08-10] MEDS: Enoxaparin 40 MG/0.4 ML SYR SUBCUT SCH (21:49)
[2021-08-10] MEDS: Remdesivir 100 mg Vial 100 MG in NS 0.9% 250 ml 230 ML IV SCH (22:01)
[2021-08-10] MEDS: Insulin GLARGINE 100 un/ml 10 ml VIAL SUBCUT SCH (23:10)
[2021-08-11] MEDS ORDERED: KCL 20 MEQ/100 ML IVPREMIX 20 MEQ/100 ML BAG IV ONE (02:00)
[2021-08-11] MEDS: KCL 20 MEQ/100 ML IVPREMIX 20 MEQ/100 ML BAG IV SCH (03:40)
[2021-08-11] MEDS ORDERED: LORazepam 2 mg VIAL 1 ml IV PUSH ONE (05:55)
[2021-08-11 06:27] LABS: ABS Basophils 0.1 10^3/ul (0-0.2); ABS Eosinophils 0.1 10^3/ul (0-0.6); ABS Monocytes 0.9 10^3/ul (0-0.8); ABS Neutrophils 15.7 10^3/ul (1.5-7.7); Eosinophil % 0.5 %; Hematocrit 44 % (42-52); Hemoglobin 14.9 g/dL (14.0-18.0); Lymphocyte % 5.7 %; Mean Corpuscular HGB Conc 34 g/dL (31-36); Mean Corpuscular Hemoglobin 30 pg (27-31); Mean Corpuscular Volume 90 fL (80-94); Mean Platelet Volume 7.8 fL (7.4-10.4); Platelet Count 251 10^3/uL (150-450); Red Blood Count 4.91 10^6 /uL (4.18-5.48); Red Cell Distribution Width 15 % (10-15); White Blood Count 17.7 10^3/uL (3.5-10.8)
[2021-08-11 06:31] LABS: INR 1.38 (0.86-1.15)
[2021-08-11 06:44] LABS: Albumin 3.2 g/dL (3.2-5.2); Albumin/Globulin Ratio 0.9 (1-3); Calcium 9.1 mg/dL (8.6-10.3); Globulin 3.7 g/dL (2-4); Magnesium 2.4 mg/dL (1.9-2.7); Total Bilirubin 1.3 mg/dL (0.2-1.0); Total Protein 6.9 g/dL (6.4-8.9); eGFR CKD-EPI 92.6 (>60)
[2021-08-11 06:48] LABS: Potassium 3.9 mmol/L (3.5-5.0)
[2021-08-11] MEDS: LORazepam 2 mg VIAL 1 ml IV PUSH SCH (08:10)
[2021-08-11] MEDS: Senna TAB 8.6 mg TAB PO SCH ×2 (08:29→19:22)
[2021-08-11] MEDS ORDERED: Lactated Ringers 1000 ml BAG 1,000 ML IV SCH (10:00)
[2021-08-11] MEDS: methylPREDNISolone SOD 40 mg/ml 1 ml VIAL IV SCH ×2 (11:32→21:38)
[2021-08-11] MEDS ORDERED: Lorazepam PYXIS KEY PRN ×2 (14:30→18:08)
[2021-08-11] MEDS ORDERED: LORazepam 2 mg VIAL 1 ml IV PUSH SCH (15:00)
[2021-08-11 15:15] LABS: Calcium 8.7 mg/dL (8.6-10.3); Potassium 3.4 mmol/L (3.5-5.0); eGFR CKD-EPI 91.8 (>60)
[2021-08-11 16:38] LABS: Magnesium 2.4 mg/dL (1.9-2.7)
[2021-08-11] MEDS ORDERED: Metoprolol Tartrate 5 mg VIAL 5 ml VIAL (1 mg/ml) IV ONE (16:56)
[2021-08-11] MEDS ORDERED: Heparin DRIP 25,000 UNITS BAG 25,000 UNITS/500 ML BAG IV SCH (17:00)
[2021-08-11] MEDS ORDERED: D5W KCl 40 MEQ 1000 ml 1,000 ML IV SCH (17:00)
[2021-08-11] MEDS: Heparin 5000 UNITS/ML 1 mL VIAL IV SCH (17:32)
[2021-08-11 17:47] LABS: Calcium 8.5 mg/dL (8.6-10.3); Magnesium 2.3 mg/dL (1.9-2.7); Potassium 3.6 mmol/L (3.5-5.0); eGFR CKD-EPI 93.3 (>60); eGFR CKD-EPI 93.7 (>60)
[2021-08-11 17:52] LABS: Troponin I 0.07 ng/mL (<0.03)
[2021-08-11 17:58] LABS: ABS Lymphocytes 0.8 10^3/ul (1.0-4.8); ABS Monocytes 0.9 10^3/ul (0-0.8); ABS Neutrophils 16.1 10^3/ul (1.5-7.7); Eosinophil % 0.1 %; Hematocrit 44 % (42-52); Hemoglobin 14.7 g/dL (14.0-18.0); Lymphocyte % 4.3 %; Mean Corpuscular HGB Conc 34 g/dL (31-36); Mean Corpuscular Hemoglobin 30 pg (27-31); Mean Corpuscular Volume 90 fL (80-94); Mean Platelet Volume 8.1 fL (7.4-10.4); Nucleated Red Blood Cells % 0.1; Platelet Count 244 10^3/uL (150-450); Red Blood Count 4.86 10^6 /uL (4.18-5.48); Red Cell Distribution Width 15 % (10-15); White Blood Count 17.7 10^3/uL (3.5-10.8)
[2021-08-11] MEDS ORDERED: LORazepam 2 mg VIAL 1 ml IV PUSH PRN (18:08)
[2021-08-11] MEDS ORDERED: LORazepam 2 mg VIAL 1 ml ONE (18:18)
[2021-08-11] MEDS ORDERED: Metoprolol Tartrate 5 mg VIAL 5 ml VIAL (1 mg/ml) IV PRN (18:21)
[2021-08-11] MEDS: LORazepam 2 mg VIAL 1 ml IV PUSH PRN (18:27)
[2021-08-11 18:28] LABS: Troponin I 0.07 ng/mL (<0.03)
[2021-08-11] MEDS: Insulin GLARGINE 100 un/ml 10 ml VIAL SUBCUT SCH (19:21)
[2021-08-11] MEDS: Remdesivir 100 mg Vial 100 MG in NS 0.9% 250 ml 230 ML IV SCH (19:51)
[2021-08-11] MEDS ORDERED: Scopolamine PATCH Remove NOTE PATCH OFF SCH (20:00)
[2021-08-12] MEDS: LORazepam 2 mg VIAL 1 ml IV PUSH PRN ×4 (00:22→22:41)
[2021-08-12 04:34] LABS: ABS Lymphocytes 0.9 10^3/ul (1.0-4.8); ABS Monocytes 0.5 10^3/ul (0-0.8); Hematocrit 41 % (42-52); Hemoglobin 13.7 g/dL (14.0-18.0); Lymphocyte % 6.1 %; Mean Corpuscular HGB Conc 33 g/dL (31-36); Mean Corpuscular Hemoglobin 30 pg (27-31); Mean Corpuscular Volume 91 fL (80-94); Mean Platelet Volume 8.1 fL (7.4-10.4); Platelet Count 209 10^3/uL (150-450); Red Blood Count 4.56 10^6 /uL (4.18-5.48); Red Cell Distribution Width 15 % (10-15); White Blood Count 14.4 10^3/uL (3.5-10.8)
[2021-08-12 04:38] LABS: INR 1.36 (0.86-1.15)
[2021-08-12] MEDS: Heparin 5000 UNITS/ML 1 mL VIAL IV SCH (04:50)
[2021-08-12 04:52] LABS: ALT 99 U/L (7-52); AST 88 U/L (13-39); Albumin 2.7 g/dL (3.2-5.2); Albumin/Globulin Ratio 0.8 (1-3); Alkaline Phosphatase 74 U/L (35-149); Blood Urea Nitrogen 32 mg/dL (6-24); CO2 Carbon Dioxide 27 mmol/L (22-32); Calcium 8.5 mg/dL (8.6-10.3); Globulin 3.2 g/dL (2-4); Glucose 186 mg/dL (70-100); Magnesium 2.2 mg/dL (1.9-2.7); Phosphorus 3.4 mg/dL (2.5-5.0); Potassium 3.8 mmol/L (3.5-5.0); Total Protein 5.9 g/dL (6.4-8.9); eGFR CKD-EPI 96.2 (>60)
[2021-08-12 04:56] LABS: Anion Gap 5 mmol/L (2-11); Chloride 124 mmol/L (101-111); Sodium 156 mmol/L (135-145); Troponin I 0.23 ng/mL (<0.03)
[2021-08-12] MEDS: D5W 1000 ml BAG 1,000 ML IV SCH ×2 (05:03→14:18)
[2021-08-12 09:11] LABS: Sodium 152 mmol/L (135-145)
[2021-08-12] MEDS: Senna TAB 8.6 mg TAB PO SCH ×2 (10:15→22:04)
[2021-08-12] MEDS: methylPREDNISolone SOD 40 mg/ml 1 ml VIAL IV SCH ×2 (12:07→22:40)
[2021-08-12] MEDS: Haloperidol 5 mg/ml SDV IV/IM 5 MG/ML AMP IV SLOW PU PRN ×2 (14:33→15:06)
[2021-08-12] MEDS ORDERED: Perflutren Lipid Microsphere 3 ML VIAL ONE (16:30)
[2021-08-12] MEDS: Insulin GLARGINE 100 un/ml 10 ml VIAL SUBCUT SCH (22:02)
[2021-08-12] MEDS ORDERED: D5W 1000 ml BAG 1,000 ML IV SCH (23:26)
[2021-08-13 05:58] LABS: ABS Lymphocytes 0.6 10^3/ul (1.0-4.8); ABS Monocytes 0.5 10^3/ul (0-0.8); ABS Neutrophils 8.5 10^3/ul (1.5-7.7); Hematocrit 40 % (42-52); Hemoglobin 13.3 g/dL (14.0-18.0); Lymphocyte % 6.6 %; Mean Corpuscular HGB Conc 34 g/dL (31-36); Mean Corpuscular Hemoglobin 31 pg (27-31); Mean Corpuscular Volume 92 fL (80-94); Mean Platelet Volume 8.2 fL (7.4-10.4); Platelet Count 136 10^3/uL (150-450); Red Blood Count 4.35 10^6 /uL (4.18-5.48); Red Cell Distribution Width 15 % (10-15); White Blood Count 9.6 10^3/uL (3.5-10.8)
[2021-08-13 06:05] LABS: Calcium 7.8 mg/dL (8.6-10.3); Magnesium 2.1 mg/dL (1.9-2.7); Phosphorus 3.5 mg/dL (2.5-5.0); Potassium 3.5 mmol/L (3.5-5.0); eGFR CKD-EPI 98.9 (>60)
[2021-08-13] MEDS ORDERED: Potassium Chlor 20 meq TAB.ER PO ONE (06:41)
[2021-08-13] MEDS ORDERED: KCL 20 MEQ/100 ML IVPREMIX 20 MEQ/100 ML BAG IV ONE (08:08)
[2021-08-13] MEDS ORDERED: KCL 20 MEQ/100 ML IVPREMIX 20 MEQ/100 ML BAG ONE (08:13)
[2021-08-13] MEDS: Senna TAB 8.6 mg TAB PO SCH ×2 (08:48→21:16)
[2021-08-13] MEDS ORDERED: methylPREDNISolone SOD 40 mg/ml 1 ml VIAL IV SCH (09:00)
[2021-08-13] MEDS: Insulin GLARGINE 100 un/ml 10 ml VIAL SUBCUT SCH (21:23)
[2021-08-14] MEDS: LORazepam 2 mg VIAL 1 ml IV PUSH PRN (05:36)
[2021-08-14] MEDS ORDERED: Haloperidol 5 mg/ml SDV IV/IM 5 MG/ML AMP IM ONE ×2 (06:30→22:45)
[2021-08-14] MEDS ORDERED: Haloperidol 5 mg/ml SDV IV/IM 5 MG/ML AMP ONE (06:33)
[2021-08-14 08:22] LABS: ABS Lymphocytes 1.1 10^3/ul (1.0-4.8); ABS Monocytes 0.7 10^3/ul (0-0.8); ABS Neutrophils 9.7 10^3/ul (1.5-7.7); Hematocrit 42 % (42-52); Hemoglobin 14.2 g/dL (14.0-18.0); Lymphocyte % 9.6 %; Mean Corpuscular HGB Conc 34 g/dL (31-36); Mean Corpuscular Hemoglobin 30 pg (27-31); Mean Corpuscular Volume 90 fL (80-94); Mean Platelet Volume 8.4 fL (7.4-10.4); Platelet Count 153 10^3/uL (150-450); Red Blood Count 4.67 10^6 /uL (4.18-5.48); Red Cell Distribution Width 15 % (10-15); White Blood Count 11.6 10^3/uL (3.5-10.8)
[2021-08-14 08:39] LABS: Calcium 8.4 mg/dL (8.6-10.3); Magnesium 2.1 mg/dL (1.9-2.7); Potassium 3.3 mmol/L (3.5-5.0)
[2021-08-14] MEDS: Senna TAB 8.6 mg TAB PO SCH ×2 (10:49→22:12)
[2021-08-14] MEDS ORDERED: KCL 20 MEQ/100 ML IVPREMIX 20 MEQ/100 ML BAG IV SCH (14:00)
[2021-08-14] MEDS: Potassium Chloride LIQUID 20 MEQ/15 ML LIQUID PO SCH ×2 (14:27→22:13)
[2021-08-14] MEDS ORDERED: Lorazepam PYXIS KEY PRN (16:34)
[2021-08-14] MEDS ORDERED: LORazepam 2 mg VIAL 1 ml IV PUSH PRN (16:34)
[2021-08-14] MEDS: Insulin GLARGINE 100 un/ml 10 ml VIAL SUBCUT SCH (22:13)
[2021-08-15] MEDS: Potassium Chloride LIQUID 20 MEQ/15 ML LIQUID PO SCH (01:21)
[2021-08-15] MEDS: Senna TAB 8.6 mg TAB PO SCH ×4 (01:22→23:02)
[2021-08-15 04:58] LABS: ABS Lymphocytes 1.1 10^3/ul (1.0-4.8); ABS Monocytes 0.6 10^3/ul (0-0.8); ABS Neutrophils 6.3 10^3/ul (1.5-7.7); Hematocrit 40 % (42-52); Hemoglobin 13.5 g/dL (14.0-18.0); Lymphocyte % 13.4 %; Mean Corpuscular HGB Conc 34 g/dL (31-36); Mean Corpuscular Hemoglobin 30 pg (27-31); Mean Corpuscular Volume 90 fL (80-94); Mean Platelet Volume 8.5 fL (7.4-10.4); Platelet Count 106 10^3/uL (150-450); Red Blood Count 4.43 10^6 /uL (4.18-5.48); Red Cell Distribution Width 15 % (10-15); White Blood Count 8.1 10^3/uL (3.5-10.8)
[2021-08-15 06:32] LABS: Calcium 7.9 mg/dL (8.6-10.3); Potassium 3.6 mmol/L (3.5-5.0)
[2021-08-15 06:38] LABS: eGFR CKD-EPI 96.2 (>60)
[2021-08-15 08:55] LABS: Magnesium 2.2 mg/dL (1.9-2.7)
[2021-08-15] MEDS ORDERED: Enoxaparin 40 MG/0.4 ML SYR SUBCUT SCH (14:00)
[2021-08-15] MEDS ORDERED: Haloperidol 5 mg/ml SDV IV/IM 5 MG/ML AMP IM ONE (17:12)
[2021-08-15] MEDS: Insulin GLARGINE 100 un/ml 10 ml VIAL SUBCUT SCH (22:31)
[2021-08-15] MEDS: Enoxaparin 40 MG/0.4 ML SYR SUBCUT SCH ×2 (22:31→23:01)
[2021-08-16 06:16] LABS: ABS Basophils 0.1 10^3/ul (0-0.2); ABS Eosinophils 0.1 10^3/ul (0-0.6); ABS Lymphocytes 1.2 10^3/ul (1.0-4.8); ABS Monocytes 0.7 10^3/ul (0-0.8); ABS Neutrophils 7.6 10^3/ul (1.5-7.7); Eosinophil % 1.3 %; Hematocrit 43 % (42-52); Hemoglobin 14.5 g/dL (14.0-18.0); Lymphocyte % 12.6 %; Mean Corpuscular HGB Conc 34 g/dL (31-36); Mean Corpuscular Hemoglobin 31 pg (27-31); Mean Corpuscular Volume 90 fL (80-94); Mean Platelet Volume 8.9 fL (7.4-10.4); Platelet Count 95 10^3/uL (150-450); Red Blood Count 4.75 10^6 /uL (4.18-5.48); Red Cell Distribution Width 15 % (10-15); White Blood Count 9.7 10^3/uL (3.5-10.8)
[2021-08-16 08:16] LABS: Anion Gap 7 mmol/L (2-11); CO2 Carbon Dioxide 27 mmol/L (22-32); Calcium 7.9 mg/dL (8.6-10.3); Chloride 109 mmol/L (101-111); Sodium 143 mmol/L (135-145)
[2021-08-16 08:21] LABS: Blood Urea Nitrogen 18 mg/dL (6-24); Glucose 77 mg/dL (70-100)
[2021-08-16] MEDS: Senna TAB 8.6 mg TAB PO SCH (08:21)
[2021-08-16 08:37] LABS: Hematocrit 42 % (42-52); Hemoglobin 14.2 g/dL (14.0-18.0); Mean Corpuscular HGB Conc 34 g/dL (31-36); Mean Corpuscular Hemoglobin 30 pg (27-31); Mean Corpuscular Volume 89 fL (80-94); Red Blood Count 4.72 10^6 /uL (4.18-5.48); Red Cell Distribution Width 14 % (10-15); White Blood Count 9.1 10^3/uL (3.5-10.8)
[2021-08-16 09:25] LABS: ABS Basophils 0.1 10^3/ul (0-0.2); ABS Lymphocytes 1.2 10^3/ul (1.0-4.8); ABS Monocytes 0.8 10^3/ul (0-0.8); Eosinophil % 0.5 %; Lymphocyte % 13.5 %; Mean Platelet Volume 8.6 fL (7.4-10.4); Platelet Count 93 10^3/uL (150-450)
[2021-08-16 15:24] VITALS: BP 121/38
[2021-08-16 15:40] LABS: Rapid COVID-19 Molecular Detected (Undetected)
== END 2021-08-16 15:01 | disposition swing bed (61) | DRG 177 ==
LOC: ED 14:25 → EDHOLD 20:15 → SUATTDRO 20:15 → MED 08-07 10:25 → ICU 08-11 17:15 → MED 08-13 14:25
PROVIDERS: ADMIT Internal Medicine; ATTEND Student in an Organized Health Care Education/Training Program

== ENCOUNTER 2021-08-16 15:54 | Inpatient (IN) ==
[2021-08-16] MEDS ORDERED: Enoxaparin 40 MG/0.4 ML SYR SUBCUT SCH (16:00)
[2021-08-16] MEDS ORDERED: Albuterol HFA INHALER 8 gm MDI INH PRN (16:09)
[2021-08-16] MEDS ORDERED: Haloperidol 5 mg/ml SDV IV/IM 5 MG/ML AMP IV SLOW PU ONE (20:27)
[2021-08-16] MEDS: METFORMIN 500 MG PO SCH (23:05)
[2021-08-17] MEDS: METFORMIN 500 MG PO SCH (09:57)
[2021-08-20 10:14] LABS: Rapid COVID-19 Molecular Detected (Undetected)
[2021-08-20 15:05] LABS: HIT ELISA < 0.050 OD (<0.400); Heparin PF4 Antibody Interp Negative (Negative)
[2021-08-21] MEDS: Calcium Carb (TUMS) 500 mg CHEW TAB PO PRN (21:11)
[2021-08-22 10:13] LABS: ABS Basophils 0.2 10^3/ul (0-0.2); ABS Lymphocytes 1.2 10^3/ul (1.0-4.8); ABS Monocytes 1.4 10^3/ul (0-0.8); ABS Neutrophils 14.3 10^3/ul (1.5-7.7); Eosinophil % 0.1 %; Hematocrit 39 % (42-52); Hemoglobin 12.9 g/dL (14.0-18.0); Lymphocyte % 6.9 %; Mean Corpuscular HGB Conc 33 g/dL (31-36); Mean Corpuscular Hemoglobin 30 pg (27-31); Mean Corpuscular Volume 90 fL (80-94); Mean Platelet Volume 8.5 fL (7.4-10.4); Platelet Count 159 10^3/uL (150-450); Red Blood Count 4.29 10^6 /uL (4.18-5.48); Red Cell Distribution Width 14 % (10-15); White Blood Count 17.1 10^3/uL (3.5-10.8)
[2021-08-22 10:42] LABS: Anion Gap 5 mmol/L (2-11); Blood Urea Nitrogen 12 mg/dL (6-24); CO2 Carbon Dioxide 27 mmol/L (22-32); Calcium 8.6 mg/dL (8.6-10.3); Chloride 105 mmol/L (101-111); Glucose 177 mg/dL (70-100); Potassium 4.3 mmol/L (3.5-5.0); Sodium 137 mmol/L (135-145); eGFR CKD-EPI 85.7 (>60)
[2021-08-22 13:31] LABS: ALT 17 U/L (7-52); AST 17 U/L (13-39); Albumin 2.7 g/dL (3.2-5.2); Albumin/Globulin Ratio 0.8 (1-3); Alkaline Phosphatase 88 U/L (35-149); Globulin 3.5 g/dL (2-4); Total Protein 6.2 g/dL (6.4-8.9)
[2021-08-22 13:52] LABS: Urine Appearance Cloudy; Urine Bilirubin Negative (Negative); Urine Blood Negative (Negative); Urine Color Amber; Urine Glucose Negative (Negative); Urine Ketones Negative (Negative); Urine Nitrite Negative (Negative); Urine Protein 2+(100 mg/dL) (Negative); Urine Specific Gravity 1.025 (1.002-1.030); Urine Urobilinogen Positive (Negative)
[2021-08-22 13:59] LABS: Urine Bacteria Absent (Absent); Urine Red Blood Cell Trace(0-2/hpf) (Absent); Urine Squamous Epithelial Cell Present (Absent); Urine White Blood Cell 1+(6-10/hpf) (Absent)
[2021-08-22 14:18] LABS: Troponin I 0.03 ng/mL (<0.03)
[2021-08-22 15:18] LABS: Indirect Bilirubin 0.9 mg/dL (0.3-1.0)
[2021-08-22 16:01] LABS: Troponin I 0.08 ng/mL (<0.03)
[2021-08-22] MEDS: Senna TAB 8.6 mg TAB PO SCH (21:48)
[2021-08-23 05:05] LABS: ALT 14 U/L (7-52); Albumin 2.5 g/dL (3.2-5.2); Albumin/Globulin Ratio 0.8 (1-3); Alkaline Phosphatase 76 U/L (35-149); Blood Urea Nitrogen 14 mg/dL (6-24); CO2 Carbon Dioxide 21 mmol/L (22-32); Calcium 7.8 mg/dL (8.6-10.3); Chloride 108 mmol/L (101-111); Glucose 124 mg/dL (70-100); Sodium 136 mmol/L (135-145); Total Protein 5.5 g/dL (6.4-8.9)
[2021-08-23 05:14] LABS: ABS Basophils 0.1 10^3/ul (0-0.2); ABS Lymphocytes 1.6 10^3/ul (1.0-4.8); ABS Monocytes 1.1 10^3/ul (0-0.8); ABS Neutrophils 10.2 10^3/ul (1.5-7.7); Eosinophil % 0.4 %; Hematocrit 35 % (42-52); Hemoglobin 11.8 g/dL (14.0-18.0); Lymphocyte % 12.5 %; Mean Corpuscular HGB Conc 33 g/dL (31-36); Mean Corpuscular Hemoglobin 30 pg (27-31); Mean Corpuscular Volume 91 fL (80-94); Mean Platelet Volume 9.7 fL (7.4-10.4); Platelet Count 88 10^3/uL (150-450); Red Blood Count 3.89 10^6 /uL (4.18-5.48); Red Cell Distribution Width 14 % (10-15); White Blood Count 13.1 10^3/uL (3.5-10.8)
[2021-08-23 05:22] LABS: Anion Gap 7 mmol/L (2-11)
[2021-08-23 07:49] LABS: Potassium Redraw 3.9 mmol/L (3.5-5.0)
[2021-08-23] MEDS: Calcium Carb (TUMS) 500 mg CHEW TAB PO PRN (15:00)
[2021-08-23] MEDS: Senna TAB 8.6 mg TAB PO SCH (21:13)
[2021-08-24 06:14] LABS: ABS Lymphocytes 1.3 10^3/ul (1.0-4.8); ABS Monocytes 0.8 10^3/ul (0-0.8); ABS Neutrophils 7.5 10^3/ul (1.5-7.7); Eosinophil % 0.2 %; Hematocrit 36 % (42-52); Hemoglobin 12.1 g/dL (14.0-18.0); Lymphocyte % 13.6 %; Mean Corpuscular HGB Conc 34 g/dL (31-36); Mean Corpuscular Hemoglobin 30 pg (27-31); Mean Corpuscular Volume 89 fL (80-94); Mean Platelet Volume 8.3 fL (7.4-10.4); Platelet Count 144 10^3/uL (150-450); Red Blood Count 3.99 10^6 /uL (4.18-5.48); Red Cell Distribution Width 14 % (10-15); White Blood Count 9.7 10^3/uL (3.5-10.8)
[2021-08-24] MEDS: Ampicillin ADVAN 1 GM in NS 0.9% 50 ML 50 ML IVPB SCH ×2 (14:28→21:19)
[2021-08-24] MEDS: Senna TAB 8.6 mg TAB PO SCH (21:25)
[2021-08-25] MEDS: Ampicillin ADVAN 1 GM in NS 0.9% 50 ML 50 ML IVPB SCH ×2 (02:50→08:21)
[2021-08-25] MEDS: Ampicillin IV 1 GM in NS 0.9% 50 ML 50 ML IVPB SCH ×2 (14:29→22:11)
[2021-08-25] MEDS: Senna TAB 8.6 mg TAB PO SCH (22:20)
[2021-08-26] MEDS: Ampicillin IV 1 GM in NS 0.9% 50 ML 50 ML IVPB SCH ×4 (03:24→19:31)
[2021-08-26 16:55] LABS: Rapid COVID-19 Molecular Undetected (Undetected)
[2021-08-26] MEDS: Senna TAB 8.6 mg TAB PO SCH (21:21)
[2021-08-27] MEDS: Ampicillin IV 1 GM in NS 0.9% 50 ML 50 ML IVPB SCH ×4 (02:01→19:49)
[2021-08-27] MEDS: Senna TAB 8.6 mg TAB PO SCH (21:56)
[2021-08-28] MEDS: Ampicillin IV 1 GM in NS 0.9% 50 ML 50 ML IVPB SCH ×3 (02:29→14:24)
[2021-08-28] MEDS: NS 0.9% IVPB SCH (20:39)
[2021-08-28] MEDS: AMPICILLIN IVPB SCH (20:39)
[2021-08-28] MEDS: Senna TAB 8.6 mg TAB PO SCH (20:45)
[2021-08-29] MEDS: AMPICILLIN IVPB SCH ×5 (01:55→20:12)
[2021-08-29] MEDS: NS 0.9% IVPB SCH ×5 (01:55→20:12)
[2021-08-29 05:11] LABS: ABS Basophils 0.1 10^3/ul (0-0.2); ABS Eosinophils 0.2 10^3/ul (0-0.6); ABS Lymphocytes 1.9 10^3/ul (1.0-4.8); ABS Monocytes 0.5 10^3/ul (0-0.8); ABS Neutrophils 3.8 10^3/ul (1.5-7.7); Eosinophil % 2.6 %; Hematocrit 30 % (42-52); Hemoglobin 10.2 g/dL (14.0-18.0); Lymphocyte % 28.8 %; Mean Corpuscular HGB Conc 34 g/dL (31-36); Mean Corpuscular Hemoglobin 30 pg (27-31); Mean Corpuscular Volume 89 fL (80-94); Mean Platelet Volume 8.1 fL (7.4-10.4); Nucleated Red Blood Cells % 0.1; Platelet Count 191 10^3/uL (150-450); Red Blood Count 3.41 10^6 /uL (4.18-5.48); Red Cell Distribution Width 14 % (10-15); White Blood Count 6.4 10^3/uL (3.5-10.8)
[2021-08-29 05:34] LABS: Albumin 2.4 g/dL (3.2-5.2); Albumin/Globulin Ratio 0.8 (1-3); Globulin 3.2 g/dL (2-4); Potassium 3.8 mmol/L (3.5-5.0); Total Bilirubin 0.3 mg/dL (0.2-1.0); Total Protein 5.6 g/dL (6.4-8.9); eGFR CKD-EPI 98.9 (>60)
[2021-08-29 17:31] LABS: C Reactive Protein 19.44 mg/L (<8.01)
[2021-08-29] MEDS: Senna TAB 8.6 mg TAB PO SCH (21:36)
[2021-08-30] MEDS: AMPICILLIN IVPB SCH ×4 (01:48→20:06)
[2021-08-30] MEDS: NS 0.9% IVPB SCH ×4 (01:48→20:06)
[2021-08-30] MEDS: Senna TAB 8.6 mg TAB PO SCH (20:07)
[2021-08-31] MEDS: NS 0.9% IVPB SCH ×3 (00:48→13:23)
[2021-08-31] MEDS: AMPICILLIN IVPB SCH ×3 (00:48→13:23)
[2021-08-31] MEDS: Senna TAB 8.6 mg TAB PO SCH (20:06)
[2021-09-01] MEDS: Senna TAB 8.6 mg TAB PO SCH (20:38)
[2021-09-02] MEDS: Senna TAB 8.6 mg TAB PO SCH (20:06)
[2021-09-03] MEDS: Calcium Carb (TUMS) 500 mg CHEW TAB PO PRN (09:57)
[2021-09-03] MEDS: Senna TAB 8.6 mg TAB PO SCH (21:39)
[2021-09-04] MEDS: Nystatin TOP POWDER 15 GM BTL TOPICAL SCH ×2 (13:08→21:08)
[2021-09-04] MEDS: Senna TAB 8.6 mg TAB PO SCH (21:14)
[2021-09-05] MEDS: Nystatin TOP POWDER 15 GM BTL TOPICAL SCH ×2 (08:50→20:52)
[2021-09-05 13:15] LABS: Rapid COVID-19 Molecular Detected (Undetected)
[2021-09-05] MEDS: Senna TAB 8.6 mg TAB PO SCH (20:51)
[2021-09-06] MEDS: Nystatin TOP POWDER 15 GM BTL TOPICAL SCH ×2 (08:52→21:15)
[2021-09-06 11:48] LABS: Rapid COVID-19 Molecular Detected (Undetected)
[2021-09-06] MEDS: Senna TAB 8.6 mg TAB PO SCH (21:15)
[2021-09-07] MEDS: Nystatin TOP POWDER 15 GM BTL TOPICAL SCH ×2 (09:48→20:42)
[2021-09-07] MEDS: Senna TAB 8.6 mg TAB PO SCH (20:36)
[2021-09-08 07:33] LABS: Hematocrit 36 % (42-52); Hemoglobin 11.9 g/dL (14.0-18.0); Mean Platelet Volume 6.7 fL (7.4-10.4); Platelet Count 218 10^3/uL (150-450)
[2021-09-08 07:49] LABS: eGFR CKD-EPI 95.6 (>60)
[2021-09-08] MEDS: Nystatin TOP POWDER 15 GM BTL TOPICAL SCH ×2 (08:17→21:05)
[2021-09-08] MEDS: Senna TAB 8.6 mg TAB PO SCH (21:06)
[2021-09-09] MEDS: Nystatin TOP POWDER 15 GM BTL TOPICAL SCH ×2 (10:06→21:30)
[2021-09-09] MEDS: Senna TAB 8.6 mg TAB PO SCH (20:28)
[2021-09-10 07:20] LABS: ABS Basophils 0.1 10^3/ul (0-0.2); ABS Eosinophils 0.1 10^3/ul (0-0.6); ABS Monocytes 0.6 10^3/ul (0-0.8); ABS Neutrophils 3.9 10^3/ul (1.5-7.7); Eosinophil % 1.3 %; Hematocrit 34 % (42-52); Hemoglobin 11.5 g/dL (14.0-18.0); Lymphocyte % 30.1 %; Mean Corpuscular HGB Conc 34 g/dL (31-36); Mean Corpuscular Hemoglobin 30 pg (27-31); Mean Corpuscular Volume 90 fL (80-94); Mean Platelet Volume 7.2 fL (7.4-10.4); Platelet Count 198 10^3/uL (150-450); Red Blood Count 3.79 10^6 /uL (4.18-5.48); Red Cell Distribution Width 15 % (10-15); White Blood Count 6.5 10^3/uL (3.5-10.8)
[2021-09-10 07:46] LABS: Calcium 8.9 mg/dL (8.6-10.3); Magnesium 1.7 mg/dL (1.9-2.7); Potassium 4.1 mmol/L (3.5-5.0); eGFR CKD-EPI 98.3 (>60)
[2021-09-10 07:51] VITALS: BP 161/61
[2021-09-10] MEDS: Nystatin TOP POWDER 15 GM BTL TOPICAL SCH ×2 (09:16→21:02)
[2021-09-10] MEDS: Senna TAB 8.6 mg TAB PO SCH (21:07)
[2021-09-11] MEDS ORDERED: Metoprolol Tartrate 5 mg VIAL 5 ml VIAL (1 mg/ml) IV ONE ×2 (01:42→02:04)
[2021-09-11] MEDS: Metoprolol Tartrate 5 mg VIAL 5 ml VIAL (1 mg/ml) ONE ×2 (01:50→03:38)
[2021-09-11] MEDS ORDERED: Ondansetron 4 mg VIAL 2 MG/ML 2 ml VIAL IV PRN (01:56)
[2021-09-11] MEDS ORDERED: Ondansetron 4 mg VIAL 2 MG/ML 2 ml VIAL ONE (01:58)
[2021-09-11 02:02] LABS: ABS Basophils 0.1 10^3/ul (0-0.2); ABS Lymphocytes 0.8 10^3/ul (1.0-4.8); ABS Monocytes 0.3 10^3/ul (0-0.8); ABS Neutrophils 7.6 10^3/ul (1.5-7.7); Eosinophil % 0.3 %; Hematocrit 38 % (42-52); Hemoglobin 12.9 g/dL (14.0-18.0); Lymphocyte % 8.8 %; Mean Corpuscular HGB Conc 34 g/dL (31-36); Mean Corpuscular Hemoglobin 31 pg (27-31); Mean Corpuscular Volume 90 fL (80-94); Mean Platelet Volume 7.4 fL (7.4-10.4); Platelet Count 242 10^3/uL (150-450); Red Blood Count 4.24 10^6 /uL (4.18-5.48); Red Cell Distribution Width 16 % (10-15); White Blood Count 8.7 10^3/uL (3.5-10.8)
[2021-09-11] MEDS ORDERED: Metoprolol Tartrate 5 mg VIAL 5 ml VIAL (1 mg/ml) ONE (02:07)
[2021-09-11 02:13] LABS: ALT 16 U/L (7-52); Albumin 3.5 g/dL (3.2-5.2); Albumin/Globulin Ratio 0.9 (1-3); Alkaline Phosphatase 119 U/L (35-149); Blood Urea Nitrogen 11 mg/dL (6-24); CO2 Carbon Dioxide 25 mmol/L (22-32); Calcium 9.5 mg/dL (8.6-10.3); Chloride 105 mmol/L (101-111); Globulin 3.8 g/dL (2-4); Glucose 170 mg/dL (70-100); Sodium 138 mmol/L (135-145); Total Protein 7.3 g/dL (6.4-8.9); eGFR CKD-EPI 94.3 (>60)
[2021-09-11 02:19] LABS: Troponin I 0.05 ng/mL (<0.03)
[2021-09-11 02:24] LABS: INR 1.05 (0.86-1.15)
[2021-09-11] MEDS ORDERED: Digoxin IV 0.5 MG/2 ML AMP (0.25 MG/ML) IV SLOW PU ONE (02:26)
[2021-09-11 03:00] LABS: Anion Gap 8 mmol/L (2-11)
== END 2021-09-11 02:33 | disposition short-term general hospital (02) | DRG 178 ==
LOC: SUATTDRO 15:54 → MED 15:54 → SSU 08-28 08:46 → UNDODISIN 08-31 15:47
PROVIDERS: ADMIT Student in an Organized Health Care Education/Training Program; ATTEND Hospitalist

== ENCOUNTER 2021-09-11 02:44 | Observation (INO) ==
[2021-09-11] MEDS ORDERED: Dextrose 50% Syringe 50 ml 25 GM/50 ML SYRINGE IV PUSH PRN (02:51)
[2021-09-11 04:55] LABS: Hematocrit 31 % (42-52); Hemoglobin 10.6 g/dL (14.0-18.0); Mean Corpuscular HGB Conc 34 g/dL (31-36); Mean Corpuscular Hemoglobin 30 pg (27-31); Mean Corpuscular Volume 90 fL (80-94); Mean Platelet Volume 7.2 fL (7.4-10.4); Platelet Count 197 10^3/uL (150-450); Red Blood Count 3.48 10^6 /uL (4.18-5.48); Red Cell Distribution Width 15 % (10-15); White Blood Count 10.2 10^3/uL (3.5-10.8)
[2021-09-11 05:05] LABS: INR 1.13 (0.86-1.15)
[2021-09-11 05:13] LABS: Anion Gap 6 mmol/L (2-11); Blood Urea Nitrogen 11 mg/dL (6-24); CO2 Carbon Dioxide 24 mmol/L (22-32); Calcium 8.4 mg/dL (8.6-10.3); Chloride 107 mmol/L (101-111); Cholesterol 121 mg/dL; Glucose 163 mg/dL (70-100); HDL Cholesterol 32.6 mg/dL; LDL Cholesterol 66 mg/dL; Potassium 4.3 mmol/L (3.5-5.0); Sodium 137 mmol/L (135-145); Triglycerides 113 mg/dL; eGFR CKD-EPI 98.8 (>60)
[2021-09-11 05:19] LABS: Troponin I 1.48 ng/mL (<0.03)
[2021-09-11 08:01] LABS: Troponin I 2.54 ng/mL (<0.03)
[2021-09-11] MEDS ORDERED: Nitroglycerin 0.1 mg/hr PATCH (2.5 mg) TRANSDERM SCH (09:00)
[2021-09-11] MEDS: Nystatin TOP POWDER 15 GM BTL TOPICAL SCH ×2 (10:06→21:06)
[2021-09-11 10:36] LABS: Troponin I 2.42 ng/mL (<0.03)
[2021-09-11] MEDS ORDERED: Perflutren Lipid Microsphere 3 ML VIAL ONE (15:57)
[2021-09-11] MEDS ORDERED: Nitro Patch Removal Reminder PATCH OFF ONE (21:00)
[2021-09-11] MEDS: Nitroglycerin 0.1 mg/hr PATCH (2.5 mg) TRANSDERM SCH (21:08)
[2021-09-11] MEDS: Senna TAB 8.6 mg TAB PO SCH (21:10)
[2021-09-12] MEDS ORDERED: Nitro Patch Removal Reminder PATCH OFF SCH (06:00)
[2021-09-12 06:46] LABS: ABS Eosinophils 0.1 10^3/ul (0-0.6); ABS Lymphocytes 1.3 10^3/ul (1.0-4.8); ABS Monocytes 0.6 10^3/ul (0-0.8); ABS Neutrophils 2.8 10^3/ul (1.5-7.7); Eosinophil % 1.1 %; Hematocrit 31 % (42-52); Hemoglobin 10.5 g/dL (14.0-18.0); Lymphocyte % 28.1 %; Mean Corpuscular HGB Conc 34 g/dL (31-36); Mean Corpuscular Hemoglobin 31 pg (27-31); Mean Corpuscular Volume 90 fL (80-94); Mean Platelet Volume 7.1 fL (7.4-10.4); Platelet Count 156 10^3/uL (150-450); Red Blood Count 3.44 10^6 /uL (4.18-5.48); Red Cell Distribution Width 15 % (10-15); White Blood Count 4.8 10^3/uL (3.5-10.8)
[2021-09-12 07:02] LABS: Calcium 8.6 mg/dL (8.6-10.3); Magnesium 1.8 mg/dL (1.9-2.7); Potassium 4.1 mmol/L (3.5-5.0); eGFR CKD-EPI 97.4 (>60)
[2021-09-12 08:39] LABS: Rapid COVID-19 Molecular Undetected (Undetected)
[2021-09-12] MEDS: Nystatin TOP POWDER 15 GM BTL TOPICAL SCH ×2 (08:44→20:56)
[2021-09-12] MEDS: Nitro Patch Removal Reminder PATCH OFF SCH (08:47)
[2021-09-12] MEDS ORDERED: Magnesium Sulfate 2 gm BAG 2 GM/50 ML BAG IVPB ONE (10:08)
[2021-09-12] MEDS: Senna TAB 8.6 mg TAB PO SCH (20:54)
[2021-09-12] MEDS: Nitroglycerin 0.1 mg/hr PATCH (2.5 mg) TRANSDERM SCH (20:54)
[2021-09-13] MEDS: Nystatin TOP POWDER 15 GM BTL TOPICAL SCH (08:54)
[2021-09-13] MEDS: Nitro Patch Removal Reminder PATCH OFF SCH (08:54)
[2021-09-13] MEDS ORDERED: Iodixanol (CONTRAST) 320 MG/ML 100 ML SDV IV ONE (11:25)
[2021-09-13 15:52] VITALS: BP 134/73
== END 2021-09-13 17:25 | disposition home or self-care (01) ==
LOC: MEDTELE → SUATTDRO 02:46
PROVIDERS: ADMIT Internal Medicine; ATTEND Internal Medicine

== ENCOUNTER 2021-09-19 11:12 | Observation (INO) ==
[2021-09-19 12:04] LABS: ABS Lymphocytes 1.9 10^3/ul (1.0-4.8); ABS Monocytes 0.8 10^3/ul (0-0.8); ABS Neutrophils 5.4 10^3/ul (1.5-7.7); Eosinophil % 0.4 %; Hematocrit 32 % (42-52); Hemoglobin 10.9 g/dL (14.0-18.0); Lymphocyte % 23.2 %; Mean Corpuscular HGB Conc 35 g/dL (31-36); Mean Corpuscular Hemoglobin 31 pg (27-31); Mean Corpuscular Volume 90 fL (80-94); Mean Platelet Volume 6.7 fL (7.4-10.4); Platelet Count 262 10^3/uL (150-450); Red Blood Count 3.53 10^6 /uL (4.18-5.48); Red Cell Distribution Width 16 % (10-15); White Blood Count 8.1 10^3/uL (3.5-10.8)
[2021-09-19 12:27] LABS: Urine Appearance Clear; Urine Bilirubin Negative (Negative); Urine Blood Negative (Negative); Urine Color Yellow; Urine Glucose Negative (Negative); Urine Ketones Trace (Negative); Urine Nitrite Negative (Negative); Urine Protein Negative (Negative); Urine Specific Gravity 1.011 (1.002-1.030); Urine Urobilinogen Negative (Negative)
[2021-09-19 12:40] LABS: Albumin 3.3 g/dL (3.2-5.2); Calcium 9.3 mg/dL (8.6-10.3); Globulin 3.3 g/dL (2-4); Potassium 3.9 mmol/L (3.5-5.0); Total Bilirubin 0.9 mg/dL (0.2-1.0); Total Protein 6.6 g/dL (6.4-8.9); eGFR CKD-EPI 93.9 (>60)
[2021-09-19] MEDS ORDERED: Al Hydrox/Mg Hydrox/Simet LIQ 30 ML UDC PO PRN (17:03)
[2021-09-19] MEDS ORDERED: Furosemide 20 mg/2 ml IV VIAL IV ONE (17:08)
[2021-09-19] MEDS ORDERED: Albuterol HFA INHALER 8 gm MDI INH PRN (17:09)
[2021-09-19] MEDS ORDERED: Dextrose 50% Syringe 50 ml 25 GM/50 ML SYRINGE IV PUSH PRN (17:12)
[2021-09-19] MEDS: Isosorbide Mononit ER 30mg TAB PO SCH (18:08)
[2021-09-19 18:22] LABS: C Reactive Protein 5.74 mg/L (<8.01)
[2021-09-19 18:50] LABS: BNP 1043 pg/mL (<=100)
[2021-09-19 19:01] LABS: TSH Ultra Thyroid Stim Horm 1.73 mcIU/mL (0.34-5.60)
[2021-09-19 19:02] LABS: Ammonia 59 mcmol/L (16-53)
[2021-09-19 23:47] LABS: Urine Appearance Clear; Urine Bilirubin Negative (Negative); Urine Blood Negative (Negative); Urine Color Straw; Urine Glucose Negative (Negative); Urine Ketones Negative (Negative); Urine Nitrite Negative (Negative); Urine Protein Negative (Negative); Urine Specific Gravity 1.006 (1.002-1.030); Urine Urobilinogen Negative (Negative)
[2021-09-19 23:58] LABS: Urine Benzodiazepine Screen None Detected (None Detect); Urine Cannabinoids Screen None Detected (None Detect); Urine Opiates Screen None Detected (None Detect)
[2021-09-20 05:54] LABS: ABS Basophils 0.1 10^3/ul (0-0.2); ABS Eosinophils 0.2 10^3/ul (0-0.6); ABS Lymphocytes 2.8 10^3/ul (1.0-4.8); ABS Monocytes 0.8 10^3/ul (0-0.8); ABS Neutrophils 4.5 10^3/ul (1.5-7.7); Eosinophil % 2.6 %; Hematocrit 33 % (42-52); Lymphocyte % 33.6 %; Mean Corpuscular HGB Conc 34 g/dL (31-36); Mean Corpuscular Hemoglobin 30 pg (27-31); Mean Corpuscular Volume 90 fL (80-94); Mean Platelet Volume 6.7 fL (7.4-10.4); Platelet Count 254 10^3/uL (150-450); Red Blood Count 3.64 10^6 /uL (4.18-5.48); Red Cell Distribution Width 16 % (10-15); White Blood Count 8.4 10^3/uL (3.5-10.8)
[2021-09-20 06:08] LABS: Calcium 8.8 mg/dL (8.6-10.3); Potassium 3.5 mmol/L (3.5-5.0); eGFR CKD-EPI 88.6 (>60)
[2021-09-20] MEDS ORDERED: Potassium Chlor 20 meq TAB.ER PO ONE (06:44)
[2021-09-20 07:05] LABS: Magnesium 1.9 mg/dL (1.9-2.7)
[2021-09-20] MEDS: Isosorbide Mononit ER 30mg TAB PO SCH (08:36)
[2021-09-21 04:43] LABS: Hematocrit 34 % (42-52); Mean Corpuscular HGB Conc 33 g/dL (31-36); Mean Corpuscular Hemoglobin 30 pg (27-31); Mean Corpuscular Volume 91 fL (80-94); Mean Platelet Volume 6.9 fL (7.4-10.4); Platelet Count 247 10^3/uL (150-450); Red Blood Count 3.71 10^6 /uL (4.18-5.48); Red Cell Distribution Width 16 % (10-15); White Blood Count 8.2 10^3/uL (3.5-10.8)
[2021-09-21 05:03] LABS: Calcium 8.8 mg/dL (8.6-10.3); eGFR CKD-EPI 92.4 (>60)
[2021-09-21 06:57] LABS: ABS Basophils 0.1 10^3/ul (0-0.2); ABS Eosinophils 0.2 10^3/ul (0-0.6); ABS Lymphocytes 2.1 10^3/ul (1.0-4.8); ABS Monocytes 0.7 10^3/ul (0-0.8); Anisocytosis 1+; Lymphocyte % 25.5 %
[2021-09-21] MEDS: Isosorbide Mononit ER 30mg TAB PO SCH (08:45)
[2021-09-21 10:39] LABS: C Reactive Protein 5.62 mg/L (<8.01)
[2021-09-22 06:26] LABS: Calcium 9.3 mg/dL (8.6-10.3); Potassium 4.1 mmol/L (3.5-5.0); eGFR CKD-EPI 93.9 (>60)
[2021-09-22] MEDS: Isosorbide Mononit ER 30mg TAB PO SCH (09:58)
[2021-09-22] MEDS: Multivitamins/Minerals TAB PO SCH (09:59)
[2021-09-23] MEDS: Multivitamins/Minerals TAB PO SCH (08:50)
[2021-09-23] MEDS: Isosorbide Mononit ER 30mg TAB PO SCH (08:58)
[2021-09-24 07:52] VITALS: BP 131/58
[2021-09-24] MEDS: Isosorbide Mononit ER 30mg TAB PO SCH (07:55)
[2021-09-24] MEDS: Multivitamins/Minerals TAB PO SCH (07:55)
== END 2021-09-24 11:45 ==
LOC: ED 11:12 → EDHOLD 11:12 → SUATTDRO 17:17 → MEDTELE 21:29 → SSU 09-22 11:04
PROVIDERS: ADMIT Internal Medicine; ATTEND Internal Medicine